=== PATIENT | male | born 2000 | race African-American/Black ===

== ENCOUNTER 2024-06-19 19:52 | Inpatient (IN) ==
--- NOTE | 2024-06-19 20:30 | Emergency Department Note ---
Impression & Plan Psychosis, Depression, High serum chloride ED Provider Note NAME: JOB RIVERA AGE: 24 SEX: M : 2000 ARRIVES VIA: Walk-In INFORMANT: Patient ED PROVIDER(S): Yang Carpio DO CHIEF COMPLAINT: Back pain HPI: Patient is a 24-year-old male who presents ER for back pain. He does not wish to discuss how long it has been there but its on the right lower back. He denies any weakness or numbness in the arms or legs. He is able to urinate and move his bowels. He denies any fevers. He notes that the pain has just gone away. He also admits that he wants to speak with someone about his mental health as he is not eating well. He denies any headache or change in vision. No chest pain or shortness of breath. No belly pain. Denies any suicidal homicidal ideations. No auditory visual hallucinations. ADDITIONAL HISTORY OBTAINED: Per HPI Chronic Medical/Social Conditions Affecting Care: Per HPI PAST MEDICAL HISTORY:See Below PAST SURGICAL HISTORY:See Below FAMILY HISTORY:See Below SOCIAL HISTORY:See Below HOME MEDICATIONS:See Below ALLERGIES:See Below VITALS:See Below PHYSICAL EXAMINATION: .GENERAL: Sitting up in bed, alert, well appearing, well nourished, no distress, non-toxic EYE EXAM: normal conjunctiva. PERRL and EOM's intact. OROPHARYNX: no exudate, no erythema, lips, buccal mucosa, and tongue normal and mucous membranes are moist NECK: supple, no nuchal rigidity, no adenopathy, non-tender LUNGS: Clear to auscultation. Normal chest wall mechanics HEART: no murmurs, S1 normal and S2 normal ABDOMEN: abdomen soft, non-tender, normo-active bowel sounds, no masses, no rebound or guarding. BACK: Back is symmetrical on inspection and there is no deformity, no midline tenderness, no CVA tenderness. SKIN: no rashes and no bruising UPPER EXTREMITIES: upper extremities are grossly normal. LOWER EXTREMITIES: Flexion and extension of the hips, knees, ankles, and EHL 5/5 bilaterally. Gross sensation is intact. DPs are 2/4 bilateral. Patellar and Achilles reflexes are 2/4 bilateral NEURO EXAM: Normal sensorium, cranial nerves II-XII grossly intact, normal speech, no gross weakness of arms, no gross weakness of legs. No drift. Finger to nose intact. Gross sensation intact. PSYCH: Denies any suicidal or homicidal ideations. No auditory visual hallucinations. MEDICAL DECISION MAKING: Patient is a 24-year-old male who presents ER with above-stated complaint. Blood work was obtained and shows no significant leukocytosis or anemia. BMP with LFTs and bilirubin was unremarkable. TSH normal. UA was clean. Drug screen was negative. Alcohol negative. COVID-negative. Patient was evaluated by her psychiatric pet care attendant. Patient was psychotic. Patient was agreeable to coming in on a 201. Patient was updated at bedside and discussed with 3 S. for further evaluation management treatment. Patient was admitted on a 201 to 3 S. Consults/Care Managements Discussions: Per MDM Triage Nursing notes reviewed. Limited review of prior medical records performed Vital Signs: reviewed and remarkable for no significant abnormalities Differential diagnosis: Mood disorder, infection, hypoglycemia, electrolyte abnormalities, cardiac sources, intracerebral event, toxicologic, trauma, neurologic, as well as other pathologies. ER treatment provided: See below Diagnostics interpreted by me include EKG and cardiac monitoring as listed below: -ECG: none -Laboratory studies:Interpreted by me as stated above in MDM and shown below. Imaging studies: Xrays: As interpreted by me: X-rays of the lumbar spine show no acute fracture or dislocation CTs show: None Procedures: None Critical Care: None Past Med/Surg History Problem List (Updated 06/20/24 @ 00:22 by Yang Carpio DO) Psychosis (Acute) High serum chloride (Acute) Depression (Acute) Social History Smoking Status: Never smoker Preferred Language: Slovak Feels Safe at Home: Yes Gender Identity: Male Home Meds Home Medications Medication Instructions Recorded Confirmed No Known Home Medications 06/19/24 06/19/24 Results & Data (ED) Vital Signs Vital Signs - 24 hr 06/19/24 19:57 06/19/24 22:07 Temperature 36.6 C Temperature Source Oral Pulse Rate 89 Pulse Rate [Finger] 72 Respiratory Rate 16 16 Respiratory Effort / Characteristics Non-Labored Spontaneous Respiratory Depth Normal Blood Pressure 121/82 Blood Pressure [Right Arm] 118/82 Blood Pressure Mean 95 Blood Pressure Mean [Right Arm] 94 Pulse Oximetry 97 98 Oxygen Delivery Method Room Air Room Air Sepsis Recent Fever Within 48 Hours No Sepsis New/Unexplained Change in Mental Status No Sepsis Action Taken by Nursing No Action Required Laboratory Data 06/19/24 21:31 06/19/24 21:31 Lab Results 06/19/24 06/19/24 Range/Units 20:21 21:31 WBC 8.22 (4.8-10.8) K/ul RBC 5.51 (4.70-6.10) M/uL Hgb 16.3 (14.0-18.0) g/dl Hct 47.7 (42.0-52.0) % MCV 86.6 (80.0-100.0) fL MCH 29.6 (25.0-34.0) pg MCHC 34.2 (32.0-36.0) g/dL RDW Std Deviation 42.1 (36.4-46.3) fL RDW Coeff of Anastasiya 13.4 (11.5-14.5) % Plt Count 251 (130-400) K/uL MPV 9.4 (9.4-12.4) fL Immature Gran % (Auto) 0.1 % Neut % (Auto) 72.3 % Lymph % (Auto) 17.9 % [place] % (Auto) 8.0 % Eos % (Auto) 1.2 % Baso % (Auto) 0.5 % Neut # (Auto) 5.94 (1.40-6.50) K/uL Lymph # (Auto) 1.47 (1.20-3.40) K/uL [place] # (Auto) 0.66 H (0.11-0.59) K/uL Eos # (Auto) 0.10 (0.00-0.50) K/uL Baso # (Auto) 0.04 (0.00-0.20) K/uL Immature Gran # (Auto) 0.01 (0.01-0.20) K/uL Sodium 140 (136-145) mmol/L Potassium 3.6 (3.5-5.1) mmol/L Chloride 105 (98-107) mmol/L Carbon Dioxide 27 (21-32) mmol/L Anion Gap 8 (3-11) BUN 8 (6-23) mg/dl Creatinine 0.89 (0.6-1.4) mg/dl Est Cr Clr Drug Dosing 115.9 ml/min eGFR 122.72 BUN/Creatinine Ratio 9.0 L (10-20) Glucose 96 (70-99(Fasting)) mg/dl Calcium 10.5 H (8.6-10.3) mg/dl Total Bilirubin 0.6 (0.2-1.0) mg/dl AST 16 (13-39) U/L ALT 13 (7-52) U/L Alkaline Phosphatase 71 (34-104) U/L Total Protein 8.3 (6.0-8.3) gm/dl Albumin 4.6 (3.4-5.0) gm/dl Globulin 3.7 (2.5-4.0) gm/dl Albumin/Globulin Ratio 1.2 (0.9-2) TSH 0.709 (0.300-4.500) uIu/ml Urine Color Yellow Urine Appearance Clear (Clear) Urine pH 7.5 (4.5-7.5) Ur Specific [place] 1.018 (1.000-1.030) Urine Protein Negative (Negative) Urine Glucose (UA) Negative (Negative) Urine Ketones Trace H (Negative) Urine Blood Negative (Negative) Urine Nitrite Negative (Negative) Urine Bilirubin Negative (Negative) Urine Urobilinogen Negative (Negative) Ur Leukocyte Esterase Negative (Negative) Salicylates < 3.0 L (3.0-30) mg/dl Urine Opiates Screen Neg (Neg) Ur Methadone, Qual Neg (Neg) Urine Fentanyl Screen Neg (Neg) Acetaminophen < 3 L (10-30) ug/ml Urine Barbiturates Neg (Neg) Ur Phencyclidine (PCP) Neg (Neg) U Amphetamin/Meth Scrn Neg (Neg) MDMA (Ecstasy) Screen Neg (Neg) U Benzodiazepines Scrn Neg (Neg) Ur Cocaine Metabolite Neg (Neg) U Marijuana (THC) Screen Neg (Neg) Ethyl Alcohol mg/dL < 10.0 (<10.0) mg/dl SARS-CoV-2, RNA, NAAT NEGATIVE (NEGATIVE) Discharge Plan Visit Data Chief Complaint: Back Injury/Pain Stated Complaint: BACK PAIN ED Provider: Yang Carpio Discharge Problem: Psychosis, Depression, High serum chloride Forms Stand Alone Forms: [facility] [employer], Suicide Prevention Resources Prescriptions Prescriptions: No Action No Known Home Medications Referrals Referrals: PCP,NO [Primary Care Provider] - Discharge Problem: Psychosis Qualifiers: Psychosis type: unspecified psychosis type Qualified Code(s): F29 - Unspecified psychosis not due to a substance or known physiological condition Depression Qualifiers: Depression Type: unspecified Qualified Code(s): F32.A - Depression, unspecified
[2024-06-19 21:38] LABS: Appearance Urine Clear (Clear); Bilirubin Urine Negative (Negative); Blood Urine Negative (Negative); Color Urine Yellow; Glucose Urine UA Negative (Negative); Ketones Urine Trace (Negative); Leukocyte Esterase Urine Negative (Negative); Nitrite Urine Negative (Negative); Protein Urine Negative (Negative); Specific Gravity Urine 1.018 (1.000-1.030); Urobilinogen Urine Negative (Negative); pH Urine 7.5 (4.5-7.5)
[2024-06-19 21:47] LABS: Basophils # (auto) 0.04 K/uL (0.00-0.20); Basophils % (auto) 0.5 %; Eosinophils % (auto) 1.2 %; Hematocrit (blood only) 47.7 % (42.0-52.0); Hemoglobin 16.3 g/dl (14.0-18.0); Immature Granulocytes # (auto) 0.01 K/uL (0.01-0.20); Immature Granulocytes % (auto) 0.1 %; Lymphocytes # (auto) 1.47 K/uL (1.20-3.40); Lymphocytes % (auto) 17.9 %; Mean Corpuscular Hemoglobin 29.6 pg (25.0-34.0); Mean Corpuscular Hgb Conc 34.2 g/dL (32.0-36.0); Mean Corpuscular Volume 86.6 fL (80.0-100.0); Mean Platelet Volume 9.4 fL (9.4-12.4); Monocytes # (auto) 0.66 K/uL (0.11-0.59); Neutrophils # (auto) 5.94 K/uL (1.40-6.50); Neutrophils % (auto) 72.3 %; Platelet Count 251 K/uL (130-400); RDW Coefficient of Variation 13.4 % (11.5-14.5); RDW Standard Deviation 42.1 fL (36.4-46.3); Red Blood Count 5.51 M/uL (4.70-6.10); White Blood Count 8.22 K/ul (4.8-10.8)
[2024-06-19 22:03] LABS: Albumin Globulin Ratio 1.2 (0.9-2); Albumin Level 4.6 gm/dl (3.4-5.0); Bilirubin,Total 0.6 mg/dl (0.2-1.0); Calcium 10.5 mg/dl (8.6-10.3); Creatinine Clr Calc Pharmacy 115.9 ml/min; Globulin 3.7 gm/dl (2.5-4.0); Potassium 3.6 mmol/L (3.5-5.1); Total Protein 8.3 gm/dl (6.0-8.3)
[2024-06-19 22:05] LABS: Acetaminophen < 3 ug/ml (10-30); Salicylate < 3.0 mg/dl (3.0-30)
[2024-06-19 22:17] LABS: Thyroid Stimulating Hormone 0.709 uIu/ml (0.300-4.500)
[2024-06-19 22:26] LABS: Amphetamines+Metham, Urine Neg (Neg); Barbiturates, Urine Neg (Neg); Benzodiazepine, Urine Neg (Neg); Cocaine, Urine Neg (Neg); Fentanyl, Urine Neg (Neg); MDMA (Ecstacy), Urine Neg (Neg); Marijuana, Urine Neg (Neg); Methadone, Urine Neg (Neg); Opiate, Urine Neg (Neg); Phencyclidine, Urine Neg (Neg)
[2024-06-20] MEDS ORDERED: ALUMINUM/MAGNESIUM SUSP 30 ML UDC PO PRN (00:32)
[2024-06-20] MEDS ORDERED: hydrOXYzine HCl 25 MG TAB PO PRN (00:32)
[2024-06-20] MEDS ORDERED: MAGNESIUM HYDROXIDE SUSP 30 ML UDC PO PRN (00:32)
[2024-06-20] MEDS ORDERED: BISMUTH SUBSALICYLATE 262 MG CHEW PO PRN (00:32)
[2024-06-20] MEDS ORDERED: SODIUM CHLORIDE 0.65% NA SOLN 45 ML (OCEAN) PRN (00:32)
--- NOTE | 2024-06-20 01:31 | XRay Report ---
Exam(s): XR L SPINE, 2-3 views EXAM: XR Lumbosacral Spine, 2 or 3 Views CLINICAL HISTORY: Reason for exam: lower back pain. TECHNIQUE: Frontal and lateral views of the lumbar spine and sacrum. COMPARISON: No relevant prior studies available. FINDINGS: Vertebrae: Unremarkable. No acute fracture. Normal alignment. Sacrum/coccyx: Unremarkable as visualized. No acute fracture. Disc spaces: No acute findings. No significant narrowing. Soft tissues: Unremarkable. Gastrointestinal tract: Increased stool within the distal colon and upper rectum. IMPRESSION: No acute findings in the lumbar spine. Electronically signed by: Vikash Mccarthy MD 06/20/24 01:30 AM
--- NOTE | 2024-06-20 09:09 | History & Physical ---
Date of Service June 20, 2024 Impression / Recommendations Impression CATHY RIVERA is a 24-year-old man who is currently homeless and drove to the hospital from [place] for unclear reasons with unknown psychiatric and medical history though reported history of prior psychiatric hospitalizations, and was admitted on 06/20/24 00:02 on a 201 voluntary commitment for bizarre behaviors, and then knew to ask for and signed a 72 hour notice after arriving to the unit. Diagnostically consistent with possible unspecified psychosis vs malingering. Differential for psychosis including schizophrenia with possible catatonia (stills still for periods of time but also observed to walk and move quickly and easily when motivated to shower or eat) vs depressive episode vs delusional disorder vs ASD vs developmental disorder va trauma. It's unclear what is driving his evasiveness in not sharing even seemingly basic information. Possible his odd affect and intense stare could be due to thought blocking with internal preoccupation and paranoia contributing to his unwillingness to engage with interview. No evidence to suggest he's trying to avoid legal problems and UDS negative so low suspicion for substance-induced or withdrawal presentation. However, his presentation is also atypical for psychosis in that overall his behavior seems quite organized, he can clearly discuss some of his desires such as living locally and knew and was organized enough to immediately ask to sign a 72 hour notice. Remains unclear why he sought voluntary inpatient psychiatric treatment but now wants to leave, not felt to be safe until we can further clarify potential current symptoms and observe his behavior for at least another 24 hours. No evidence for current delirium or NMS or acute neurological symptoms. Will continue to monitor vital signs, notable for slight tachycardia this morning. Given his report of poor sleep and auditory hallucinations will iniate olanzapine which he consents to. Will continue to closely monitor for possible catatonia and will treat should his Mcduffie Allan catatonia score increase. Discussed medication treatment options. Reviewed side effects including but not limited to: movement (TD, NMS), cardiac (QTc prolongation), and metabolic (stroke, insulin resistance) and necessity for fasting lipid and glucose labwork and AIMS done with score of 0 with olanzapine. MNPR-odd affect and presentation Overall I spent a total of 60 minutes for this admission including review of chart records, review of labwork, direct evaluation of the patient, counseling the patient, ordering medication, risk assessment, discussion with the psychiatric liason RN and documentation in the electronic health record. (1) Auditory hallucinations: (2) Homeless: Plan The patient was admitted to the [facility] ([facility] inpatient mental health unit) on q15 min checks (behavioral with suicide precautions) for safety. The patient will participate in group, recreational, and milieu therapies and will be offered additional individual and family sessions as clinically appropriate. -Start olanzapine 5mg HS -Fasting lipid panel and HbA1c tomorrow, Vit D, Vit B12 Inventory Assets Strengths: able to ask for help, willing for outpatient CM Needs: safety and stabilization, medication adjustment, additional coping skills, increased outpatient services Suicide Risk Level Suicide Risk Level: Moderate (q15 min suicide checks) (denies SI but odd presentation, feels safe in the hospital, able to ask nurses when he needs things) Suicide Risk Level Comments: Risk Factors Assessment Male: Yes : No Do You Have Access To A Gun?: No Mental Health Diagnoses: Yes Previous Psychiatric Hospitalization: Yes Hopelessness: No Protective Factors Assessment Employed: No Psychiatric History Identifying Data CATHY RIVERA is a 24-year-old man who is currently homeless and drove to the hospital from [place] for unclear reasons with unknown psychiatric and medical history though reported history of prior psychiatric hospitalizations, and was admitted on 06/20/24 00:02 on a 201 voluntary commitment for bizarre behaviors, and then knew to ask for and signed a 72 hour notice after arriving to the unit. Chief Complaint "I don't want to answer that question". History of Present Illness Cathy presents for psychiatric admission for bizarre presentation and concern for possible preoccupation by internal stimuli and possible paranoia leading to evasiveness. He reports current homelessness and previous psychiatric hospitalizations, though the exact number is unknown. He is reluctant to provide detailed information about his background and current circumstances. He drove to the emergency room from [place] and initially reported back pain and then asked to speak with someone about his mental health due to not eating well per ED documentation. He denied any hallucinations to ED providers. Today he reports experiencing sleep issues but is unable to provide details on the cause or nature of these problems. He also acknowledges hearing auditory hallucinations when asked about this but will not provide any further details. He acknowledges having been on psychiatric medication in the past but cannot recall the specific medications or the pharmacy where they were filled. He expresses a desire to stay in the current region rather than return to [place], though he will not provide any details or rationale for this nor will he share anything about his prior living situations or family He is unable to clarify any psychiatric diagnoses and frequently responds with "I don't know how to answer that question" to various inquiries. Despite his housing situation, he reports he has been able to eat recently (notably different from what he told ED providers, he does appear thin). Psychiatric ROS is limited due to his evasiveness in providing a history or discussing symptoms. Past Psychiatric History Current Psychiatric Diagnosis: Unspecified Mood Disorder Outpatient Services: none known Previous Psych Admissions: yes but unknown details Do You Have Access To A Gun?: No History of Previous Suicide Attempt: No Past Medication Trials: unknown, he cannot recall Allergies Allergy/AdvReac Type Severity Reaction Status Date / Time No Known Allergies Allergy Unverified 06/20/24 00:32 Home Medications Medication Instructions Recorded Confirmed Type No Known Home Medications 06/19/24 06/19/24 History Family History Family History of: Refuses To Discuss Family Mental Health History Comment: Does not know Alcohol History Hx of Alcohol Use Over the Past 12 Months: No AUDIT Total Score: 0 Smoking Use Have You Smoked or Used Tobacco Products in the Last 30 Days: No Smoking Status: Never smoker Substance History Hx of Prescription Med Misuse Over the Past 12 Months: No Hx of Over the Counter Med Misuse Over the Past 12 Months: No Hx of Inhalent Misuse Over the Past 12 Months: No Hx of Organic Substance Use Over the Past 12 Months: No Hx of Illegal Substances/Street Drug Use Over Past 12 Months: No Problems as a Result of Past Substance Use: None Identified Problems as a Result of Past Substance Use Comments: Pt reports he does not use drugs or drink Personal History Living Arrangements: Homeless Beliefs That Will Affect Care: None Patient History Social History Smoking Status: Never smoker Preferred Language: Hungarian Communication Ability: Impaired Communication Ability Comment: difficulty communicating due to poverty of speech Retail Office Associate Required: No Beliefs That Will Affect Care: None Feels Safe at Home: Declines to Answer Gender Identity: Male Assistive Devices: None Review of Systems Review of Systems: Unobtainable due to mental health condition Physical Exam Psychiatric: Orientation: alert, oriented x 3 and + guarded Apperance: appropriately groomed Eye Contact: good eye contact (intense and odd in nature) Motor Behavior: no abnormal motor movements and + psychomotor retardation (sits still for long periods of time staring at the wall ) Speech: + abnormal rate/rhythm/volume of speech (brief, significant latency at times) Affect: + flat affect Mood: + depressed mood and + anxious mood Thought Process: + thought blocking and + concrete thought process Thought Content: + paranoid Suicidal Thoughts: denies suicidal thoughts Homicidal Thoughts: denies homicidal thoughts Hallucinations: + auditory hallucinations Insight: + limited insight Judgment: + poor judgement Vital Signs (Past 24 Hours): Last Vital Signs Temp 37.1 C 06/20/24 06:00 Pulse 123 H 06/20/24 06:22 Resp 16 06/20/24 06:00 BP 113/76 06/20/24 06:22 Pulse Ox 98 06/20/24 06:00 O2 Del Method Room Air 06/20/24 06:00 Exam Statement: A physical exam was performed in the ED by Dr. Carpio for the purposes of medical clearance. I accept that physical as correct and adequate for the purposes of the inpatient physical exam. Results & Data ([facility]) Laboratory Results Laboratory Results - last 24 hr 06/19/24 06/19/24 20:21 21:31 WBC 8.22 RBC 5.51 Hgb 16.3 Hct 47.7 MCV 86.6 MCH 29.6 MCHC 34.2 RDW Std Deviation 42.1 RDW Coeff of Anastasiya 13.4 Plt Count 251 MPV 9.4 Immature Gran % (Auto) 0.1 Neut % (Auto) 72.3 Lymph % (Auto) 17.9 [place] % (Auto) 8.0 Eos % (Auto) 1.2 Baso % (Auto) 0.5 Neut # (Auto) 5.94 Lymph # (Auto) 1.47 [place] # (Auto) 0.66 H Eos # (Auto) 0.10 Baso # (Auto) 0.04 Immature Gran # (Auto) 0.01 Sodium 140 Potassium 3.6 Chloride 105 Carbon Dioxide 27 Anion Gap 8 BUN 8 Creatinine 0.89 Est Cr Clr Drug Dosing 115.9 eGFR 122.72 BUN/Creatinine Ratio 9.0 L Glucose 96 Calcium 10.5 H Total Bilirubin 0.6 AST 16 ALT 13 Alkaline Phosphatase 71 Total Protein 8.3 Albumin 4.6 Globulin 3.7 Albumin/Globulin Ratio 1.2 TSH 0.709 Urine Color Yellow Urine Appearance Clear Urine pH 7.5 Ur Specific [place] 1.018 Urine Protein Negative Urine Glucose (UA) Negative Urine Ketones Trace H Urine Blood Negative Urine Nitrite Negative Urine Bilirubin Negative Urine Urobilinogen Negative Ur Leukocyte Esterase Negative Salicylates < 3.0 L Urine Opiates Screen Neg Ur Methadone, Qual Neg Urine Fentanyl Screen Neg Acetaminophen < 3 L Urine Barbiturates Neg Ur Phencyclidine (PCP) Neg U Amphetamin/Meth Scrn Neg MDMA (Ecstasy) Screen Neg U Benzodiazepines Scrn Neg Ur Cocaine Metabolite Neg U Marijuana (THC) Screen Neg Ethyl Alcohol mg/dL < 10.0 SARS-CoV-2, RNA, NAAT NEGATIVE Current Inpatient Medications Current Inpatient Medications: Current Inpatient Medications Acetaminophen (Acetaminophen 325 Mg Tab) 650 mg PO Q4H PRN PRN Reason: Headache or Minor Fever Stop: 07/20/24 00:31 Al Hydrox/Mg Hydrox/Simethicone (Aluminum/Magnesium Susp 30 Ml Udc) 30 ml PO Q4H PRN PRN Reason: GI Upset Stop: 07/20/24 00:31 Bismuth Subsalicylate (Bismuth Subsalicylate 262 Mg Chew) 2 tab PO Q30M PRN PRN Reason: Loose Stool/Diarrhea Stop: 07/20/24 00:31 Hydroxyzine HCl (Hydroxyzine Hcl 25 Mg Tab) 50 mg PO HSZ PRN PRN Reason: Insomnia Stop: 07/20/24 00:31 Hydroxyzine HCl (Hydroxyzine Hcl 25 Mg Tab) 25 mg PO Q4H PRN PRN Reason: Anxiety Stop: 07/20/24 00:31 Magnesium Hydroxide (Magnesium Hydroxide Susp 30 Ml Udc) 30 ml PO DAILY PRN PRN Reason: Constipation Stop: 07/20/24 00:31 Olanzapine (Olanzapine 5 Mg Tablet) 5 mg PO BID PRN PRN Reason: Agitation Stop: 07/20/24 08:59 Sodium Chloride (Sodium Chloride 0.65% Na Soln 45 Ml ([place])) 1 - 2 sprays NA PRN PRN PRN Reason: Nasal Dryness/Congestion Stop: 07/20/24 00:31
[2024-06-20] MEDS: OLANZapine 5 MG TABLET PO PRN (14:37)
[2024-06-20] MEDS: OLANZapine 5 MG TABLET PO SCH (21:00)
--- NOTE | 2024-06-21 08:40 | Psychiatric Progress Note ---
Date of Service June 21, 2024 Impression / Recommendations Impression JOB RIVERA is a 24-year-old man who is currently homeless and drove to the hospital from [place] for unclear reasons with unknown psychiatric and medical history though reported history of prior psychiatric hospitalizations, and was admitted on 06/20/24 00:02 on a 201 voluntary commitment for bizarre behaviors, and then knew to ask for and signed a 72 hour notice after arriving to the unit. 72 hour notice expires on 06/23/2024 at 5:47am. Diagnostically consistent with possible unspecified psychosis vs malingering. Differential for psychosis including schizophrenia with possible catatonia (stills still for periods of time but also observed to walk and move quickly and easily when motivated to shower or eat) vs depressive episode vs delusional disorder vs ASD vs developmental disorder va trauma. It's unclear what is driving his evasiveness in not sharing even seemingly basic information. Possible his odd affect and intense stare could be due to thought blocking with internal preoccupation and paranoia contributing to his unwillingness to engage with interview. No evidence to suggest he's trying to avoid legal problems and UDS negative so low suspicion for substance-induced or withdrawal presentation. However, his presentation is also atypical for psychosis in that overall his behavior seems quite organized, he can clearly discuss some of his desires such as living locally and knew and was organized enough to immediately ask to sign a 72 hour notice. Remains unclear why he sought voluntary inpatient psychiatric treatment but now wants to leave, not felt to be safe until we can further clarify potential current symptoms and observe his behavior for at least another 24 hours. No evidence for current delirium or NMS or acute neurological symptoms. Will continue to monitor vital signs, notable for slight tachycardia this morning. A:Presentation consistent with ongoing unspecified psychosis possibly schizophrenia but difficult to tell at this point. Increased concern for catatonia today so Ativan started dose increased after initial morning dose did not seem to have much an affect though also did not seem to make him tired. Reviewed side effects including fatigue addiction potential and he was agreeable to starting this. Will increase olanzapine to continue to target potential internal stimuli/preoccupations/thought blocking. Labwork reviewed and normal with the exception of low vitamin D he agrees to starting vitamin D supplementation. MNPR-odd affect and presentation Overall, I spent a total of 40 minutes on this case including meeting with the patient, reviewing the chart, nursing report, multidisciplinary team meeting, orders, and documentation. (1) Auditory hallucinations: (2) Homeless: Plan 06/21/2024: -Increase olanzapine to 10mg HS -Started and titrated ativan to 2mg TID -Requested records from [facility] for possible previous admissions in attempt to get further history and collateral information 06/20/2024: The patient was admitted to the [facility] ([facility] health unit) on q15 min checks (behavioral with suicide precautions) for safety. The patient will participate in group, recreational, and milieu therapies and will be offered additional individual and family sessions as clinically appropriate. -Start olanzapine 5mg HS -Fasting lipid panel and HbA1c tomorrow, Vit D, Vit B12 Inventory Assets Strengths: able to ask for help, willing for outpatient CM Needs: safety and stabilization, medication adjustment, additional coping skills, increased outpatient services Suicide Risk Level Suicide Risk Level: Moderate (q15 min suicide checks) (denies SI but odd presentation, feels safe in the hospital, able to ask nurses when he needs things) Suicide Risk Level Comments: Risk Factors Assessment Male: Yes : No Do You Have Access To A Gun?: No Mental Health Diagnoses: Yes Previous Psychiatric Hospitalization: Yes Hopelessness: No Protective Factors Assessment Employed: No Interval History Identifying Information JOB RIVERA is a 24-year-old man who is currently homeless and drove to the hospital from [place] for unclear reasons with unknown psychiatric and medical history though reported history of prior psychiatric hospitalizations, and was admitted on 06/20/24 00:02 on a 201 voluntary commitment for bizarre behaviors, and then knew to ask for and signed a 72 hour notice after arriving to the unit. Chief Complaint "I don't want to say who it is". Review of Systems Sleep Information Total Hours of Sleep: 7 Meal Information Percent Meal Consumed - Breakfast: 100 Percent Meal Consumed - Lunch: 75 Percent Meal Consumed - Dinner: 75 Subjective Subjective Patient was seen & assessed and interval progress reviewed with nursing and social work. Wouldn't interact with peers or staff. Sat in one group with flat affect, did not participate, then asked to sign another 72 hour with nurse. This morning he asked to take a shower, waited while nurses got it ready then asked again to get a shower seemingly confused that he had just asked about it. He consented to trial of Ativan today given some increased concern for catatonia given longer periods of lack of movement and ongoing stare. He remains evasive when attempting to ask him any questions frequently responds with "I do not know" or will declined to share information. He did agree to sign an [facility] when asked about this facility as a possible place he may have received treatment in the past as it is closer to the [facility]. He also was able to tell me that he was only homeless for 3 days before coming to our hospital and that prior to that he was living with someone in his family but would not tell me who and could not tell me why. He denied that they were fighting or that the family member had been abusive to him in any way but would not tell me what circumstances led to him leaving or why he felt the need to leave the home. Later in the day he was observed by nursing to be on the phone when I asked him about this he initially denied being on the phone then agreed that he tried to call someone but did not reach them. When asked who he was speaking with told me "I do not want to say who it is". Reviewed his lab work with him he is agreeable to starting vitamin D. He denies any side effects from the olanzapine last night and denies hearing any voices today. Tells me "I meant to say I slept a little bit" when asked about his sleep quality. Physical Exam Psychiatric Orientation: alert, oriented x 3 and + guarded Apperance: appropriately groomed Eye Contact: good eye contact (intense and odd in nature) Motor Behavior: no abnormal motor movements and + psychomotor retardation (sits still for long periods of time staring at the wall ) Speech: + abnormal rate/rhythm/volume of speech (brief, significant latency at times) Affect: + flat affect Mood: + depressed mood and + anxious mood Thought Process: + thought blocking and + concrete thought process Thought Content: + paranoid Suicidal Thoughts: denies suicidal thoughts Homicidal Thoughts: denies homicidal thoughts Hallucinations: + auditory hallucinations Insight: + limited insight Judgment: + poor judgement Vital Signs (Past 24 Hours) Last Vital Signs Temp 36.6 C 06/21/24 06:00 Pulse 88 06/21/24 06:26 Resp 16 06/21/24 06:00 BP 111/75 06/21/24 06:26 Pulse Ox 100 06/21/24 06:00 O2 Del Method Room Air 06/21/24 06:00 Results & Data ([facility]) Laboratory Results Laboratory Results - last 24 hr 06/21/24 08:12 Estimat Average Glucose Pending Hemoglobin A1c Pending Triglycerides Pending Cholesterol Pending VLDL Cholesterol, Calc Pending HDL Cholesterol Pending Cholesterol/HDL Ratio Pending Vitamin B12 Pending 25-OH Vitamin D Total Pending Current Inpatient Medications Current Inpatient Medications: Current Inpatient Medications Acetaminophen (Acetaminophen 325 Mg Tab) 650 mg PO Q4H PRN PRN Reason: Headache or Minor Fever Stop: 07/20/24 00:31 Al Hydrox/Mg Hydrox/Simethicone (Aluminum/Magnesium Susp 30 Ml Udc) 30 ml PO Q4H PRN PRN Reason: GI Upset Stop: 07/20/24 00:31 Bismuth Subsalicylate (Bismuth Subsalicylate 262 Mg Chew) 2 tab PO Q30M PRN PRN Reason: Loose Stool/Diarrhea Stop: 07/20/24 00:31 Hydroxyzine HCl (Hydroxyzine Hcl 25 Mg Tab) 50 mg PO HSZ PRN PRN Reason: Insomnia Stop: 07/20/24 00:31 Hydroxyzine HCl (Hydroxyzine Hcl 25 Mg Tab) 25 mg PO Q4H PRN PRN Reason: Anxiety Stop: 07/20/24 00:31 Magnesium Hydroxide (Magnesium Hydroxide Susp 30 Ml Udc) 30 ml PO DAILY PRN PRN Reason: Constipation Stop: 07/20/24 00:31 Olanzapine (Olanzapine 5 Mg Tablet) 5 mg PO BID PRN PRN Reason: Agitation Stop: 07/20/24 08:59 Last Admin: 06/20/24 14:37 Dose: 5 mg Olanzapine (Olanzapine 5 Mg Tablet) 5 mg PO HS RAFI Stop: 07/20/24 21:59 Last Admin: 06/20/24 21:00 Dose: 5 mg Sodium Chloride (Sodium Chloride 0.65% Na Soln 45 Ml ([place])) 1 - 2 sprays NA PRN PRN PRN Reason: Nasal Dryness/Congestion Stop: 07/20/24 00:31 Mental Health & Subst Abuse Tx Therapist Name of Therapist: None Physics Tutor Name of Physics Tutor: None Post Discharge Appointments Primary Care Physician Name Of Family Doctor/PCP: Does not know
[2024-06-21 09:08] LABS: Chol HDL Ratio 2.3 (0-5)
[2024-06-21] MEDS: LORazepam 1 MG TAB PO SCH ×2 (09:08→14:04)
[2024-06-21 09:49] LABS: Estimated Average Glucose 103 mg/dl; Hemoglobin A1C 5.2 % (4.5-5.6)
[2024-06-21] MEDS: OLANZapine 10 MG TAB PO SCH (21:34)
--- NOTE | 2024-06-22 09:10 | Psychiatric Progress Note ---
Date of Service June 22, 2024 Impression / Recommendations Impression JOB RIVERA is a 24-year-old man who is currently homeless and drove to the hospital from [place] for unclear reasons with unknown psychiatric and medical history though reported history of prior psychiatric hospitalizations, and was admitted on 06/20/24 00:02 on a 201 voluntary commitment for bizarre behaviors, and then knew to ask for and signed a 72 hour notice after arriving to the unit. 72 hour notice expires on 06/23/2024 at 5:47am. Diagnostically consistent with schziophrenia, paranoid type based on review of outside records of hospitalizations over the years. A:Today slightly more communicative and less guarded states he feels safe in the hospital but continues to struggle to speak about any of his symptoms or internal mood states. Ongoing thought blocking. Records received from [facility] which were reviewed and notable for significant history of schizophrenia paranoid type. Various inpatient and emergency room notes from their facility described that he has been tried on a variety of antipsychotics in the past including olanzapine Haldol Seroquel paliperidone Abilify and he has responded the best to the combination of paliperidone and Seroquel. Review of chart shows most recent records of medications from February 2024 was paliperidone 6 mg daily and Seroquel 100 mg at bedtime. Appears he has also been on the Invega long-acting injectable in the past of 156 mg. Currently he is declining option for a long-acting injectable but possible he may change his mind moving forward. Ativan discontinued as this worsened fatigue and no evidence of catatonia anticipated response. Fewer signs of catatonia today, suspect latency is due to thought blocking, and fatigue may be due to co-occurring depression component vs due to paranoia from psychosis. Discussed medication treatment options. Discussed risks, benefits and alternatives. He consents to starting Seroquel and paliperidone and stopping olanzapine. Reviewed that similar side effects with paliperidone and Seroquel of: movement (TD, NMS), cardiac (QTc prolongation), and metabolic (stroke, insulin resistance) and necessity for fasting lipid and glucose labwork and AIMS done with score of 0. MNPR-ongoing psychosis, paranoia Overall, I spent a total of 45 minutes on this case including meeting with the patient, reviewing the chart, nursing report, multidisciplinary team meeting, orders, and documentation and reviewing external records. (1) Auditory hallucinations: (2) Homeless: Plan 06/22/2024: -Discontinue olanzapine -Discontinue ativan -Start paliperidone 3mg daily tomorrow AM -Start Seroquel 100mg HS. 06/21/2024: -Increase olanzapine to 10mg HS -Started and titrated ativan to 2mg TID -Requested records from [facility] for possible previous admissions in attempt to get further history and collateral information 06/20/2024: The patient was admitted to the [facility] ([facility]) on q15 min checks (behavioral with suicide precautions) for safety. The patient will participate in group, recreational, and milieu therapies and will be offered additional individual and family sessions as clinically appropriate. -Start olanzapine 5mg HS -Fasting lipid panel and HbA1c tomorrow, Vit D, Vit B12 Inventory Assets Strengths: able to ask for help, willing for outpatient CM Needs: safety and stabilization, medication adjustment, additional coping skills, increased outpatient services Suicide Risk Level Suicide Risk Level: Moderate (q15 min suicide checks) (denies SI but odd presentation, feels safe in the hospital, able to ask nurses when he needs things) Suicide Risk Level Comments: Risk Factors Assessment Male: Yes : No Do You Have Access To A Gun?: No Mental Health Diagnoses: Yes Previous Psychiatric Hospitalization: Yes Hopelessness: No Protective Factors Assessment Employed: No Interval History Identifying Information JOB RIVERA is a 24-year-old man who is currently homeless and drove to the hospital from [place] for unclear reasons with unknown psychiatric and medical history though reported history of prior psychiatric hospitalizations, and was admitted on 06/20/24 00:02 on a 201 voluntary commitment for bizarre behaviors, and then knew to ask for and signed a 72 hour notice after arriving to the unit. Chief Complaint "I don't know how to describe it". Review of Systems Sleep Information Total Hours of Sleep: 7 Meal Information Percent Meal Consumed - Breakfast: 100 Percent Meal Consumed - Lunch: 100 Percent Meal Consumed - Dinner: 0 Subjective Subjective Patient was seen & assessed and interval progress reviewed with treatment team. Today he has been largely isolative to his room though has been eating his meals and did share a little bit more in one of the groups he attended. This morning stated his mood was worried in the group. No evidence of any type of response suggestive of catatonia from the Ativan rather has appeared quite tired so this was discontinued midday. Records received from previous hospitalizations at [facility] and additional collateral available from [facility] discussion with social work all suggestive of diagnosis of schizophrenia. Discussed with Stephanie a past history of medications and he is agreeable to restarting paliperidone and Seroquel as these were helpful in the past. His only request was that he not be started on any injectable medications preferring use of medications that come as a pill. Physical Exam Psychiatric Orientation: alert, oriented x 3 and + guarded Apperance: appropriately groomed Eye Contact: good eye contact (intense and odd in nature) Motor Behavior: no abnormal motor movements and + psychomotor retardation (lying in bed) Speech: + abnormal rate/rhythm/volume of speech (brief, significant latency at times) Affect: + flat affect Mood: + depressed mood and + anxious mood Thought Process: + thought blocking and + concrete thought process Thought Content: + paranoid Suicidal Thoughts: denies suicidal thoughts Homicidal Thoughts: denies homicidal thoughts Hallucinations: + auditory hallucinations Insight: + limited insight Judgment: + poor judgement Vital Signs (Past 24 Hours) Last Vital Signs Temp 37 C 06/22/24 06:37 Pulse 81 06/22/24 06:38 Resp 16 06/22/24 06:37 BP 118/76 06/22/24 06:38 Pulse Ox 100 06/21/24 06:00 O2 Del Method Room Air 06/21/24 06:00 Results & Data ([facility]) Laboratory Results Laboratory Results - last 24 hr 06/21/24 08:12 Estimat Average Glucose 103 Hemoglobin A1c 5.2 Vitamin B12 283 25-OH Vitamin D Total 21.9 L Current Inpatient Medications Current Inpatient Medications: Current Inpatient Medications Acetaminophen (Acetaminophen 325 Mg Tab) 650 mg PO Q4H PRN PRN Reason: Headache or Minor Fever Stop: 07/20/24 00:31 Al Hydrox/Mg Hydrox/Simethicone (Aluminum/Magnesium Susp 30 Ml Udc) 30 ml PO Q4H PRN PRN Reason: GI Upset Stop: 07/20/24 00:31 Bismuth Subsalicylate (Bismuth Subsalicylate 262 Mg Chew) 2 tab PO Q30M PRN PRN Reason: Loose Stool/Diarrhea Stop: 07/20/24 00:31 Hydroxyzine HCl (Hydroxyzine Hcl 25 Mg Tab) 50 mg PO HSZ PRN PRN Reason: Insomnia Stop: 07/20/24 00:31 Hydroxyzine HCl (Hydroxyzine Hcl 25 Mg Tab) 25 mg PO Q4H PRN PRN Reason: Anxiety Stop: 07/20/24 00:31 Lorazepam (Lorazepam 1 Mg Tab) 2 mg PO TID RAFI Stop: 07/21/24 13:59 Last Admin: 06/22/24 08:48 Dose: 2 mg Magnesium Hydroxide (Magnesium Hydroxide Susp 30 Ml Udc) 30 ml PO DAILY PRN PRN Reason: Constipation Stop: 07/20/24 00:31 Olanzapine (Olanzapine 5 Mg Tablet) 5 mg PO BID PRN PRN Reason: Agitation Stop: 07/20/24 08:59 Last Admin: 06/20/24 14:37 Dose: 5 mg Olanzapine (Olanzapine 10 Mg Tab) 10 mg PO HS RAFI Stop: 07/21/24 21:59 Last Admin: 06/21/24 21:34 Dose: 10 mg Sodium Chloride (Sodium Chloride 0.65% Na Soln 45 Ml ([place])) 1 - 2 sprays NA PRN PRN PRN Reason: Nasal Dryness/Congestion Stop: 07/20/24 00:31 Mental Health & Subst Abuse Tx Therapist Name of Therapist: None Salesperson Art Objects Name of Salesperson Art Objects: None Post Discharge Appointments Primary Care Physician Name Of Family Doctor/PCP: Does not know
[2024-06-22] MEDS ORDERED: BENZTROPINE MESYLATE 1 MG TAB PO PRN (16:01)
[2024-06-22] MEDS: QUEtiapine FUMARATE 100 MG TABLET PO SCH (20:48)
[2024-06-23] MEDS: hydrOXYzine HCl 25 MG TAB PO PRN (01:40)
[2024-06-23] MEDS: PALIPERIDONE 3 MG TABCR PO SCH (08:35)
--- NOTE | 2024-06-23 15:55 | Psychiatric Progress Note ---
Date of Service June 23, 2024 Impression / Recommendations Impression JOB RIVERA is a 24-year-old man who is currently homeless and drove to the hospital from [place] for unclear reasons with unknown psychiatric and medical history though reported history of prior psychiatric hospitalizations, and was admitted on 06/20/24 00:02 on a 201 voluntary commitment for bizarre behaviors, and then knew to ask for and signed a 72 hour notice after arriving to the unit. 72 hour notice expires on 06/23/2024 at 5:47am. A:Patient presents in a psychotic state with thought blocking, increased paranoia, auditory hallucinations, limited spontaneous speech. Has been tolerating paliperidone well and planned increase. Vitamin D resulted in inefficient we will start supplementation. Concern for ongoing sleep maintenance dysfunction and will optimize sleep medications. MNPR-ongoing psychosis, paranoia Overall, I spent a total of 45 minutes on this case including meeting with the patient, reviewing the chart, nursing report, multidisciplinary team meeting, orders, and documentation and reviewing external records. (1) Auditory hallucinations: (2) Homeless: (3) Psychosis: (4) Insomnia: (5) Vitamin D insufficiency: Plan 06/23/2024: Start vitamin D 5000 units daily Increase paliperidone to 6 mg daily Start lorazepam 1 mg bedtime Discontinue quetiapine Start hydroxyzine 50 mg at bedtime 06/22/2024: -Discontinue olanzapine -Discontinue ativan -Start paliperidone 3mg daily tomorrow AM -Start Seroquel 100mg HS. 06/21/2024: -Increase olanzapine to 10mg HS -Started and titrated ativan to 2mg TID -Requested records from [facility] for possible previous admissions in attempt to get further history and collateral information 06/20/2024: The patient was [facility] ([facility] unit) on q15 min checks (behavioral with suicide precautions) for safety. The patient will participate in group, recreational, and milieu therapies and will be offered additional individual and family sessions as clinically appropriate. -Start olanzapine 5mg HS -Fasting lipid panel and HbA1c tomorrow, Vit D, Vit B12 Inventory Assets Strengths: able to ask for help, willing for outpatient CM Needs: safety and stabilization, medication adjustment, additional coping skills, increased outpatient services Suicide Risk Level Suicide Risk Level: Moderate (q15 min suicide checks) (denies SI but odd presentation, feels safe in the hospital, able to ask nurses when he needs things) Suicide Risk Level Comments: Risk Factors Assessment Male: Yes : No Do You Have Access To A Gun?: No Mental Health Diagnoses: Yes Previous Psychiatric Hospitalization: Yes Hopelessness: No Protective Factors Assessment Employed: No Interval History Identifying Information JOB RIVERA is a 24-year-old man who is currently homeless and drove to the hospital from [place] for unclear reasons with unknown psychiatric and medical history though reported history of prior psychiatric hospitalizations, and was admitted on 06/20/24 00:02 on a 201 voluntary commitment for bizarre behaviors, and then knew to ask for and signed a 72 hour notice after arriving to the unit. Chief Complaint Psychosis Review of Systems Sleep Information Total Hours of Sleep: 5.25 Meal Information Percent Meal Consumed - Breakfast: 100 Percent Meal Consumed - Lunch: 90 Percent Meal Consumed - Dinner: 100 Subjective Subjective Patient was seen & assessed and interval progress reviewed with treatment team nursing and social work Overnight slept 5.5 hours. Staff concern for thought blocking. On interview patient presents a flat affect with no spontaneous speech. Has trouble with open-ended questioning and requires direct questions. He reports coming to the hospital for trouble sleeping, eating less, and hearing voices. Complains of foot and back pain. Reports noticing a small difference in how he feels. Continues to have sleep maintenance problems. He finished dinner yesterday. He reports being unable to describe the voices. Unsure of anxiety. Unable to tell me if he feels safe. Would not disclose who he lives with. He says that he can return home. Says that I can call mother for collateral information. Physical Exam Mental Examination Appearance: Unkempt Eye Contact: Fleeting Contact Motor Behavior: Slowed Speech: Soft, Delayed and Poverty of Speech Mood: Depressed and Calm Affect: Apprehensive, Blunted, Constricted, Dulled, Flat and Withdrawn Thought Process: [place], Poverty of Content and Slowed Thinking Insight: Poor Judgement: Poor Vital Signs (Past 24 Hours) Last Vital Signs Temp 36.7 C 06/23/24 06:33 Pulse 97 H 06/23/24 06:34 Resp 16 06/23/24 06:33 BP 96/64 L 06/23/24 06:34 Pulse Ox 100 06/21/24 06:00 O2 Del Method Room Air 06/21/24 06:00 Results & Data ([facility]) Current Inpatient Medications Current Inpatient Medications: Current Inpatient Medications Acetaminophen (Acetaminophen 325 Mg Tab) 650 mg PO Q4H PRN PRN Reason: Headache or Minor Fever Stop: 07/20/24 00:31 Al Hydrox/Mg Hydrox/Simethicone (Aluminum/Magnesium Susp 30 Ml Udc) 30 ml PO Q4H PRN PRN Reason: GI Upset Stop: 07/20/24 00:31 Benztropine Mesylate (Benztropine Mesylate 1 Mg Tab) 1 mg PO DAILY PRN PRN Reason: muscle stiffness/acute dystoni Stop: 07/22/24 16:00 Bismuth Subsalicylate (Bismuth Subsalicylate 262 Mg Chew) 2 tab PO Q30M PRN PRN Reason: Loose Stool/Diarrhea Stop: 07/20/24 00:31 Hydroxyzine HCl (Hydroxyzine Hcl 25 Mg Tab) 50 mg PO HSZ PRN PRN Reason: Insomnia Stop: 07/20/24 00:31 Last Admin: 06/23/24 01:40 Dose: 50 mg Hydroxyzine HCl (Hydroxyzine Hcl 25 Mg Tab) 25 mg PO Q4H PRN PRN Reason: Anxiety Stop: 07/20/24 00:31 Hydroxyzine HCl (Hydroxyzine Hcl 25 Mg Tab) 50 mg PO HS RAFI Stop: 07/23/24 21:59 Lorazepam (Lorazepam 1 Mg Tab) 1 mg PO HS RAFI Stop: 07/23/24 21:59 Magnesium Hydroxide (Magnesium Hydroxide Susp 30 Ml Udc) 30 ml PO DAILY PRN PRN Reason: Constipation Stop: 07/20/24 00:31 Olanzapine (Olanzapine 5 Mg Tablet) 5 mg PO BID PRN PRN Reason: Agitation Stop: 07/20/24 08:59 Last Admin: 06/20/24 14:37 Dose: 5 mg Paliperidone (Paliperidone 3 Mg Tabcr) 6 mg PO DAILY RAFI Stop: 07/24/24 08:59 Sodium Chloride (Sodium Chloride 0.65% Na Soln 45 Ml ([place])) 1 - 2 sprays NA PRN PRN PRN Reason: Nasal Dryness/Congestion Stop: 07/20/24 00:31 Vitamin D (Cholecalciferol 125 Mcg (5,000 Units) Tab) 125 mcg PO QAM RAFI Stop: 07/23/24 14:29 Mental Health & Subst Abuse Tx Therapist Name of Therapist: None Rubber Curer Name of Rubber Curer: None Post Discharge Appointments Primary Care Physician Name Of Family Doctor/PCP: Does not know (3) Psychosis Psychosis type: unspecified psychosis type Qualified Code(s): F29 - Unspecified psychosis not due to a substance or known physiological condition
[2024-06-23] MEDS: CHOLECALCIFEROL 125 MCG (5,000 UNITS) TAB PO SCH (16:31)
[2024-06-23] MEDS: LORazepam 1 MG TAB PO SCH (21:08)
[2024-06-23] MEDS: hydrOXYzine HCl 25 MG TAB PO SCH (21:08)
[2024-06-24] MEDS: PALIPERIDONE 3 MG TABCR PO SCH (08:59)
--- NOTE | 2024-06-24 15:39 | Psychiatric Progress Note ---
Date of Service June 24, 2024 Impression / Recommendations Impression CATHY RIVERA is a 24-year-old man who is currently homeless and drove to the hospital from [place] for unclear reasons with unknown psychiatric and medical history though reported history of prior psychiatric hospitalizations, and was admitted on 06/20/24 00:02 on a 201 voluntary commitment for bizarre behaviors, and then knew to ask for and signed a 72 hour notice after arriving to the unit. 72 hour notice expires on 06/23/2024 at 5:47am. A:Patient continues to present a flat affect, concern for thought blocking and amotivation, difficulty expressing emotions. He endorses an improvement in voices however continues to appear preoccupied. Has been tolerating paliperidone well with no evidence of EPS. Has been sleeping better with lorazepam and will plan to continue. MNPR-ongoing psychosis, paranoia Overall, I spent a total of 45 minutes on this case including meeting with the patient, reviewing the chart, nursing report, multidisciplinary team meeting, orders, gathering collateral and documentation and reviewing external records. (1) Auditory hallucinations: (2) Homeless: (3) Psychosis: (4) Insomnia: (5) Vitamin D insufficiency: Plan 06/24/2024: Continue medications and treatment plan 06/23/2024: Start vitamin D 5000 units daily Increase paliperidone to 6 mg daily Start lorazepam 1 mg bedtime Discontinue quetiapine Start hydroxyzine 50 mg at bedtime 06/22/2024: -Discontinue olanzapine -Discontinue ativan -Start paliperidone 3mg daily tomorrow AM -Start Seroquel 100mg HS. 06/21/2024: -Increase olanzapine to 10mg HS -Started and titrated ativan to 2mg TID -Requested records from [facility] for possible previous admissions in attempt to get further history and collateral information 06/20/2024: [facility]) on q15 min checks (behavioral with suicide precautions) for safety. The patient will participate in group, recreational, and milieu therapies and will be offered additional individual and family sessions as clinically appropriate. -Start olanzapine 5mg HS -Fasting lipid panel and HbA1c tomorrow, Vit D, Vit B12 Inventory Assets Strengths: able to ask for help, willing for outpatient CM Needs: safety and stabilization, medication adjustment, additional coping skills, increased outpatient services Suicide Risk Level Suicide Risk Level: Moderate (q15 min suicide checks) (denies SI but odd presentation, feels safe in the hospital, able to ask nurses when he needs things) Suicide Risk Level Comments: Risk Factors Assessment Male: Yes : No Do You Have Access To A Gun?: No Mental Health Diagnoses: Yes Previous Psychiatric Hospitalization: Yes Hopelessness: No Protective Factors Assessment Employed: No Interval History Identifying Information CATHY RIVERA is a 24-year-old man who is currently homeless and drove to the hospital from [place] for unclear reasons with unknown psychiatric and medical history though reported history of prior psychiatric hospitalizations, and was admitted on 06/20/24 00:02 on a 201 voluntary commitment for bizarre behaviors, and then knew to ask for and signed a 72 hour notice after arriving to the unit. Chief Complaint Psychosis Review of Systems Sleep Information Total Hours of Sleep: 8.25 Meal Information Percent Meal Consumed - Breakfast: 80 Percent Meal Consumed - Lunch: 80 Percent Meal Consumed - Dinner: 100 Subjective Subjective Patient was seen & assessed and interval progress reviewed with treatment team nursing and social work Patient attended some groups. Has presented inappropriate posture and affect at times. Concerns that he is often preoccupied. Slept 8.5 hours. On interview he appears ambivalent with a flat affect and often replies "I do not know" to many questions. He reports having trouble staying asleep; is unsure of how many awakenings he had. He reports voices are improved. He has trouble with open- ended questioning and requires direct pointed questions. He reports growing up in [place]. He is unable to tell me any details about his childhood. Unable to tell me details about family psychiatric history. Unable to detail goals of inpatient treatment. He denies SI and HI. Introduced HAYES option and pt currently refuses. Called Cathy's mother with pt permission (Mirza Killian, phone number, ): Pt stopped getting shots 1 year ago. Living with brother. 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 Unable to talk further due to being at work; will call back tomorrow. Physical Exam Mental Examination Appearance: Unkempt Eye Contact: Fleeting Contact Motor Behavior: Slowed Speech: Soft, Delayed and Poverty of Speech Mood: Depressed and Calm Affect: Apprehensive, Blunted, Constricted, Dulled, Flat and Withdrawn Thought Process: [place], Poverty of Content and Slowed Thinking Insight: Poor Judgement: Poor Vital Signs (Past 24 Hours) Last Vital Signs Temp 36.7 C 06/24/24 06:36 Pulse 78 06/24/24 06:37 Resp 16 06/24/24 06:36 BP 99/66 L 06/24/24 06:37 Pulse Ox 100 06/21/24 06:00 O2 Del Method Room Air 06/21/24 06:00 Results & Data ([facility]) Current Inpatient Medications Current Inpatient Medications: Current Inpatient Medications Acetaminophen (Acetaminophen 325 Mg Tab) 650 mg PO Q4H PRN PRN Reason: Headache or Minor Fever Stop: 07/20/24 00:31 Al Hydrox/Mg Hydrox/Simethicone (Aluminum/Magnesium Susp 30 Ml Udc) 30 ml PO Q4H PRN PRN Reason: GI Upset Stop: 07/20/24 00:31 Benztropine Mesylate (Benztropine Mesylate 1 Mg Tab) 1 mg PO DAILY PRN PRN Reason: muscle stiffness/acute dystoni Stop: 07/22/24 16:00 Bismuth Subsalicylate (Bismuth Subsalicylate 262 Mg Chew) 2 tab PO Q30M PRN PRN Reason: Loose Stool/Diarrhea Stop: 07/20/24 00:31 Hydroxyzine HCl (Hydroxyzine Hcl 25 Mg Tab) 50 mg PO HSZ PRN PRN Reason: Insomnia Stop: 07/20/24 00:31 Last Admin: 06/23/24 01:40 Dose: 50 mg Hydroxyzine HCl (Hydroxyzine Hcl 25 Mg Tab) 25 mg PO Q4H PRN PRN Reason: Anxiety Stop: 07/20/24 00:31 Hydroxyzine HCl (Hydroxyzine Hcl 25 Mg Tab) 50 mg PO HS RAFI Stop: 07/23/24 21:59 Last Admin: 06/23/24 21:08 Dose: 50 mg Lorazepam (Lorazepam 1 Mg Tab) 1 mg PO HS RAFI Stop: 07/23/24 21:59 Last Admin: 06/23/24 21:08 Dose: 1 mg Magnesium Hydroxide (Magnesium Hydroxide Susp 30 Ml Udc) 30 ml PO DAILY PRN PRN Reason: Constipation Stop: 07/20/24 00:31 Olanzapine (Olanzapine 5 Mg Tablet) 5 mg PO BID PRN PRN Reason: Agitation Stop: 07/20/24 08:59 Last Admin: 06/20/24 14:37 Dose: 5 mg Paliperidone (Paliperidone 3 Mg Tabcr) 6 mg PO DAILY RAFI Stop: 07/24/24 08:59 Last Admin: 06/24/24 08:59 Dose: 6 mg Sodium Chloride (Sodium Chloride 0.65% Na Soln 45 Ml ([place])) 1 - 2 sprays NA PRN PRN PRN Reason: Nasal Dryness/Congestion Stop: 07/20/24 00:31 Vitamin D (Cholecalciferol 125 Mcg (5,000 Units) Tab) 125 mcg PO QAM RAFI Stop: 07/23/24 14:29 Last Admin: 06/24/24 08:59 Dose: 125 mcg Mental Health & Subst Abuse Tx Therapist Name of Therapist: None Hod Carrier Name of Hod Carrier: None Post Discharge Appointments Primary Care Physician Name Of Family Doctor/PCP: Does not know (3) Psychosis Psychosis type: unspecified psychosis type Qualified Code(s): F29 - Unspecified psychosis not due to a substance or known physiological condition
--- NOTE | 2024-06-25 16:15 | Psychiatric Progress Note ---
Date of Service June 25, 2024 Impression / Recommendations Impression JOB RIVERA is a 24-year-old man who is currently homeless and drove to the hospital from [place] for unclear reasons with unknown psychiatric and medical history though reported history of prior psychiatric hospitalizations, and was admitted on 06/20/24 00:02 on a 201 voluntary commitment for bizarre behaviors, and then knew to ask for and signed a 72 hour notice after arriving to the unit. 72 hour notice expires on 06/23/2024 at 5:47am. A:Patient continues to present a flat affect, appears preoccupied, has difficulty with spontaneous speech or open-ended questioning, sleep maintenance dysfunction, and amotivation. He is guarded on interview and appears paranoid not disclosing he details that would assist with his care and aftercare planning. Attempted to gather collateral from mother. Patient was previously staying with brother however will not sign an JIGNESH for us to contact him. MNPR-ongoing psychosis, paranoia Overall, I spent a total of 45 minutes on this case including meeting with the patient, reviewing the chart, nursing report, multidisciplinary team meeting, orders, gathering collateral and documentation and reviewing external records. (1) Auditory hallucinations: (2) Homeless: (3) Psychosis: (4) Insomnia: (5) Vitamin D insufficiency: Plan 06/25/2024: Increase hydroxyzine to 100 mg at bedtime 06/24/2024: Continue medications and treatment plan 06/23/2024: Start vitamin D 5000 units daily Increase paliperidone to 6 mg daily Start lorazepam 1 mg bedtime Discontinue quetiapine Start hydroxyzine 50 mg at bedtime 06/22/2024: -Discontinue olanzapine -Discontinue ativan -Start paliperidone 3mg daily tomorrow AM -Start Seroquel 100mg HS. 06/21/2024: -Increase olanzapine to 10mg HS -Started and titrated ativan to 2mg TID -Requested records from [facility] for possible previous admissions in attempt to get further history and collateral information 06/20/2024: The patient was admitted to the [facility] ([facility] unit) on q15 min checks (behavioral with suicide precautions) for safety. The patient will participate in group, recreational, and milieu therapies and will be offered additional individual and family sessions as clinically appropriate. -Start olanzapine 5mg HS -Fasting lipid panel and HbA1c tomorrow, Vit D, Vit B12 Inventory Assets Strengths: able to ask for help, willing for outpatient CM Needs: safety and stabilization, medication adjustment, additional coping skills, increased outpatient services Suicide Risk Level Suicide Risk Level: Moderate (q15 min suicide checks) (denies SI but odd presentation, feels safe in the hospital, able to ask nurses when he needs things) Suicide Risk Level Comments: Risk Factors Assessment Male: Yes : No Do You Have Access To A Gun?: No Mental Health Diagnoses: Yes Previous Psychiatric Hospitalization: Yes Hopelessness: No Protective Factors Assessment Employed: No Interval History Identifying Information JOB RIVERA is a 24-year-old man who is currently homeless and drove to the hospital from [place] for unclear reasons with unknown psychiatric and medical history though reported history of prior psychiatric hospitalizations, and was admitted on 06/20/24 00:02 on a 201 voluntary commitment for bizarre behaviors, and then knew to ask for and signed a 72 hour notice after arriving to the unit. Chief Complaint "I am not doing well" Review of Systems Sleep Information Total Hours of Sleep: 5.5 Meal Information Percent Meal Consumed - Breakfast: 80 Percent Meal Consumed - Lunch: 100 Percent Meal Consumed - Dinner: 100 Subjective Subjective Patient was seen & assessed and interval progress reviewed with treatment team nursing and social work Overnight patient slept 5.5 hours. He declined the release of information to his brother. Filed 72-hour notice. Chart review shows patient had history of 302 hospitalization. Patient reports sleeping better. Reports ongoing sleep awakenings. Says voices are quiet. Reports coming to the hospital because he had multiple days of poor sleep and he was hearing voices. When asked more details about whether voices got better he reports being unable to describe it. I did confirm the voices are more quiet. Says he was employed before. Unwilling to tell me what he did for work or where he was staying prior to coming here. Says he was having side effects on Invega Sustenna and that is why he stopped the medication. He says he does not remember what the side effects are. He denies having muscle rigidity or muscle locking while in the medication. Through the conversation the patient appears guarded and presents limited information. He asked multiple questions however has difficulty with follow-through on those questions. He denies suicidal ideation. Called patient mother x2 at 12:18pm and went to [facility]. Physical Exam Mental Examination Appearance: Unkempt Eye Contact: Fleeting Contact Motor Behavior: Slowed Speech: Soft, Delayed and Poverty of Speech Mood: Depressed and Calm Affect: Apprehensive, Blunted, Constricted, Dulled, Flat and Withdrawn Thought Process: [place], Poverty of Content and Slowed Thinking Insight: Poor Judgement: Poor Vital Signs (Past 24 Hours) Last Vital Signs Temp 36.9 C 06/25/24 06:49 Pulse 100 H 06/25/24 06:50 Resp 18 06/25/24 06:49 BP 104/71 06/25/24 06:50 Pulse Ox 100 06/21/24 06:00 O2 Del Method Room Air 06/21/24 06:00 Results & Data ([facility]) Current Inpatient Medications Current Inpatient Medications: Current Inpatient Medications Acetaminophen (Acetaminophen 325 Mg Tab) 650 mg PO Q4H PRN PRN Reason: Headache or Minor Fever Stop: 07/20/24 00:31 Al Hydrox/Mg Hydrox/Simethicone (Aluminum/Magnesium Susp 30 Ml Udc) 30 ml PO Q4H PRN PRN Reason: GI Upset Stop: 07/20/24 00:31 Benztropine Mesylate (Benztropine Mesylate 1 Mg Tab) 1 mg PO DAILY PRN PRN Reason: muscle stiffness/acute dystoni Stop: 07/22/24 16:00 Bismuth Subsalicylate (Bismuth Subsalicylate 262 Mg Chew) 2 tab PO Q30M PRN PRN Reason: Loose Stool/Diarrhea Stop: 07/20/24 00:31 Hydroxyzine HCl (Hydroxyzine Hcl 25 Mg Tab) 50 mg PO HSZ PRN PRN Reason: Insomnia Stop: 07/20/24 00:31 Last Admin: 06/23/24 01:40 Dose: 50 mg Hydroxyzine HCl (Hydroxyzine Hcl 25 Mg Tab) 25 mg PO Q4H PRN PRN Reason: Anxiety Stop: 07/20/24 00:31 Hydroxyzine HCl (Hydroxyzine Hcl 25 Mg Tab) 100 mg PO HS RAFI Stop: 07/25/24 21:59 Lorazepam (Lorazepam 1 Mg Tab) 1 mg PO HS RAFI Stop: 07/23/24 21:59 Last Admin: 06/24/24 21:33 Dose: 1 mg Magnesium Hydroxide (Magnesium Hydroxide Susp 30 Ml Udc) 30 ml PO DAILY PRN PRN Reason: Constipation Stop: 07/20/24 00:31 Olanzapine (Olanzapine 5 Mg Tablet) 5 mg PO BID PRN PRN Reason: Agitation Stop: 07/20/24 08:59 Last Admin: 06/20/24 14:37 Dose: 5 mg Paliperidone (Paliperidone 3 Mg Tabcr) 6 mg PO DAILY RAFI Stop: 07/24/24 08:59 Last Admin: 06/25/24 08:36 Dose: 6 mg Sodium Chloride (Sodium Chloride 0.65% Na Soln 45 Ml ([place])) 1 - 2 sprays NA PRN PRN PRN Reason: Nasal Dryness/Congestion Stop: 07/20/24 00:31 Vitamin D (Cholecalciferol 125 Mcg (5,000 Units) Tab) 125 mcg PO QAM RAFI Stop: 07/23/24 14:29 Last Admin: 06/25/24 08:36 Dose: 125 mcg Mental Health & Subst Abuse Tx Therapist Name of Therapist: None Shipbuilding Draftsperson Name of Shipbuilding Draftsperson: None Post Discharge Appointments Primary Care Physician Name Of Family Doctor/PCP: Does not know (3) Psychosis Psychosis type: unspecified psychosis type Qualified Code(s): F29 - Unspecified psychosis not due to a substance or known physiological condition
[2024-06-25] MEDS: hydrOXYzine HCl 25 MG TAB PO SCH (21:31)
--- NOTE | 2024-06-26 13:24 | Psychiatric Progress Note ---
Date of Service June 26, 2024 Impression / Recommendations Impression CATHY RIVERA is a 24-year-old man who is currently homeless and drove to the hospital from [place] for unclear reasons with unknown psychiatric and medical history though reported history of prior psychiatric hospitalizations, and was admitted on 06/20/24 00:02 on a 201 voluntary commitment for bizarre behaviors, and then knew to ask for and signed a 72 hour notice after arriving to the unit. 72 hour notice expires on 06/23/2024 at 5:47am. A:Patient continues to be preoccupied, concern for auditory hallucinations, thought blocking, and amotivated. Concern for depressive component to illness and will start fluoxetine 10 mg daily. Medication side effects and adverse effects discussed with patient and agreeable. Patient's past medical records were reviewed and indicate recurrent hospitalizations with medication noncompliance, past suicidal ideation and self-harm, anxiety symptoms, past depression diagnosis and treatment. Has been tried on multiple antipsychotics and improved with paliperidone. Noted patient is slightly more verbal since admission and has presented improved sleep. Concerned that sleep maintenance dysfunction is due to active depression. Patient is disappointed that his life trajectory has been altered due to illness and appears hopeless. He presents limited insight into his condition. MNPR-ongoing psychosis, paranoia Overall, I spent a total of 60 minutes on this case including meeting with the patient, reviewing the chart, nursing report, multidisciplinary team meeting, orders, gathering collateral and documentation and reviewing external records. (1) Schizophrenia, paranoid type: (2) Anxiety and depression: (3) Auditory hallucinations: (4) Insomnia: (5) Vitamin D insufficiency: (6) Homeless: Plan 06/26/2024: Start fluoxetine 10 mg daily 06/25/2024: Increase hydroxyzine to 100 mg at bedtime 06/24/2024: Continue medications and treatment plan 06/23/2024: Start vitamin D 5000 units daily Increase paliperidone to 6 mg daily Start lorazepam 1 mg bedtime Discontinue quetiapine Start hydroxyzine 50 mg at bedtime 06/22/2024: -Discontinue olanzapine -Discontinue ativan -Start paliperidone 3mg daily tomorrow AM -Start Seroquel 100mg HS. 06/21/2024: -Increase olanzapine to 10mg HS -Started and titrated ativan to 2mg TID -Requested records from [facility] for possible previous admissions in attempt to get further history and collateral information 06/20/2024: The patient was admitted to the [facility] ([facility] inpatient mental health unit) on q15 min checks (behavioral with suicide precautions) for safety. The patient will participate in group, recreational, and milieu therapies and will be offered additional individual and family sessions as clinically appropriate. -Start olanzapine 5mg HS -Fasting lipid panel and HbA1c tomorrow, Vit D, Vit B12 Inventory Assets Strengths: able to ask for help, willing for outpatient CM Needs: safety and stabilization, medication adjustment, additional coping skills, increased outpatient services Suicide Risk Level Suicide Risk Level: Moderate (q15 min suicide checks) (denies SI but odd presentation, feels safe in the hospital, able to ask nurses when he needs things) Suicide Risk Level Comments: Risk Factors Assessment Male: Yes : No Do You Have Access To A Gun?: No Mental Health Diagnoses: Yes Previous Psychiatric Hospitalization: Yes Hopelessness: No Protective Factors Assessment Employed: No Interval History Identifying Information CATHY RIVERA is a 24-year-old man who is currently homeless and drove to the hospital from [place] for unclear reasons with unknown psychiatric and medical history though reported history of prior psychiatric hospitalizations, and was admitted on 06/20/24 00:02 on a 201 voluntary commitment for bizarre behaviors, and then knew to ask for and signed a 72 hour notice after arriving to the unit. Chief Complaint Psychosis, depression Review of Systems Sleep Information Total Hours of Sleep: 0.5 Meal Information Percent Meal Consumed - Breakfast: 100 Percent Meal Consumed - Lunch: 100 Percent Meal Consumed - Dinner: 75 Subjective Subjective Patient was seen & assessed and interval progress reviewed with treatment team nursing and social work Nursing reports overnight patient was staring blankly the day room. At times laughing inappropriately. Slept 6.5 hours. Appears paranoid at times. On interview he reports sleeping is improved. Guarded about whether voices have improved but appears they are still present. Reports future plans to continue employment and live in alf. Unwilling to disclose what he does for employment saying he does not feel comfortable telling me. Reports being in alf in the past. I discussed the findings of my document review and expressed concerns about recurrent hospitalizations and medication nonadherence. Patient expresses disappointment that he is not able to achieve what he wants due to his condition. Medical record review: Patient was seen for outpatient visit at [facility] on 03/19/[address] aDny Singh: At that time he was not taking his prescribed Seroquel, paliperidone, sertraline and denied active AVH or SI. At that time presented a flat affect. In a note from hospital ER 03/17/2020 was on 225mg of Effexor and Gabapentin 200mg TID. Presented on 02/17/19 with persistent paranoia and pressure to harm himself with puncture wounds to left hand (first episode) and was on Abilify 2mg which was ineffective. H/o noncompliance with medications. Past work as a [employer]IVE [employer]. Symptoms noted: "overworking without med compliance. Pt c/o AH, racing thoughts, thought blocking., internally distracted, inappropriate laughter, paranoia. Past 72 hour notices while inpatient. Multiple past inpatient psychiatric hospitalizations. (three inpatient in 2019+1 inpatient at [facility]). Past dx of MDD, alcohol use diorder, cannabis use disorder. Past trials of Haldol, Zyprexa, risperidone. Pt did well with [employer]. Pt has two brothers, one sister. Called Cathy's mother with pt permission (Solomonjonny Killian, phone number, ): Pt has been in touch with mother. 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 Was doing well and bought a car last week. Living with his brother. Pt's work was worried about his absence and job put a missing person search because he was gone for 2 days. Sent police to brother's home. Describes the pt as smart, kind, and hard working. Gets HAYES injection at [facility]. Unsure of outpatient psychiatrist. Mother requesting we fax a letter to his work to inform them about his medical leave of absence. Mother will talk to pt about continued hospitalization. Physical Exam Mental Examination Appearance: Unkempt Eye Contact: Fleeting Contact Motor Behavior: Slowed Speech: Soft, Delayed and Poverty of Speech Mood: Depressed and Calm Affect: Apprehensive, Blunted, Constricted, Dulled, Flat and Withdrawn Thought Process: [place], Poverty of Content and Slowed Thinking Thought Content: Poverty of Content Hallucinations: Auditory Insight: Poor Judgement: Poor Vital Signs (Past 24 Hours) Last Vital Signs Temp 36.7 C 06/26/24 06:37 Pulse 94 H 06/26/24 06:38 Resp 16 06/26/24 06:37 BP 86/57 L 06/26/24 06:38 Pulse Ox 100 06/21/24 06:00 O2 Del Method Room Air 06/21/24 06:00 Results & Data ([facility]) Current Inpatient Medications Current Inpatient Medications: Current Inpatient Medications Acetaminophen (Acetaminophen 325 Mg Tab) 650 mg PO Q4H PRN PRN Reason: Headache or Minor Fever Stop: 07/20/24 00:31 Al Hydrox/Mg Hydrox/Simethicone (Aluminum/Magnesium Susp 30 Ml Udc) 30 ml PO Q4H PRN PRN Reason: GI Upset Stop: 07/20/24 00:31 Benztropine Mesylate (Benztropine Mesylate 1 Mg Tab) 1 mg PO DAILY PRN PRN Reason: muscle stiffness/acute dystoni Stop: 07/22/24 16:00 Bismuth Subsalicylate (Bismuth Subsalicylate 262 Mg Chew) 2 tab PO Q30M PRN PRN Reason: Loose Stool/Diarrhea Stop: 07/20/24 00:31 Fluoxetine HCl (Fluoxetine Hcl 10 Mg Cap) 10 mg PO QAM RAFI Stop: 07/26/24 11:29 Hydroxyzine HCl (Hydroxyzine Hcl 25 Mg Tab) 50 mg PO HSZ PRN PRN Reason: Insomnia Stop: 07/20/24 00:31 Last Admin: 06/23/24 01:40 Dose: 50 mg Hydroxyzine HCl (Hydroxyzine Hcl 25 Mg Tab) 25 mg PO Q4H PRN PRN Reason: Anxiety Stop: 07/20/24 00:31 Hydroxyzine HCl (Hydroxyzine Hcl 25 Mg Tab) 100 mg PO HS RAFI Stop: 07/25/24 21:59 Last Admin: 06/25/24 21:31 Dose: 100 mg Lorazepam (Lorazepam 1 Mg Tab) 1 mg PO HS RAFI Stop: 07/23/24 21:59 Last Admin: 06/25/24 21:31 Dose: 1 mg Magnesium Hydroxide (Magnesium Hydroxide Susp 30 Ml Udc) 30 ml PO DAILY PRN PRN Reason: Constipation Stop: 07/20/24 00:31 Olanzapine (Olanzapine 5 Mg Tablet) 5 mg PO BID PRN PRN Reason: Agitation Stop: 07/20/24 08:59 Last Admin: 06/20/24 14:37 Dose: 5 mg Paliperidone (Paliperidone 3 Mg Tabcr) 6 mg PO DAILY RAFI Stop: 07/24/24 08:59 Last Admin: 06/26/24 08:36 Dose: 6 mg Sodium Chloride (Sodium Chloride 0.65% Na Soln 45 Ml ([place])) 1 - 2 sprays NA PRN PRN PRN Reason: Nasal Dryness/Congestion Stop: 07/20/24 00:31 Vitamin D (Cholecalciferol 125 Mcg (5,000 Units) Tab) 125 mcg PO QAM RAFI Stop: 07/23/24 14:29 Last Admin: 06/26/24 08:36 Dose: 125 mcg Mental Health & Subst Abuse Tx Therapist Name of Therapist: None Lacing Cutter Name of Lacing Cutter: None Post Discharge Appointments Primary Care Physician Name Of Family Doctor/PCP: Does not know
[2024-06-26] MEDS: FLUoxetine HCL 10 MG CAP PO SCH (13:26)
[2024-06-26] MEDS: ACETAMINOPHEN 325 MG TAB PO PRN (17:20)
--- NOTE | 2024-06-27 14:53 | Psychiatric Progress Note ---
Date of Service June 27, 2024 Impression / Recommendations Impression JOB RIVERA is a 24-year-old man who is currently homeless and drove to the hospital from [place] for unclear reasons with unknown psychiatric and medical history though reported history of prior psychiatric hospitalizations, and was admitted on 06/20/24 00:02 on a 201 voluntary commitment for bizarre behaviors, and then knew to ask for and signed a 72 hour notice after arriving to the unit. 72 hour notice expires on 06/23/2024 at 5:47am. A: Patient continues to present thought blocking, amotivation, preoccupation with concern for active psychosis, paranoid and guarded. Slight nausea and headache side effect from fluoxetine and should be self-limited. Sleep has improved and we will continue to monitor. Plan to optimize his paliperidone dose today. MNPR-ongoing psychosis, paranoia Overall, I spent a total of 45 minutes on this case including meeting with the patient, reviewing the chart, nursing report, multidisciplinary team meeting, orders, gathering collateral and documentation and reviewing external records. (1) Schizophrenia, paranoid type: (2) Anxiety and depression: (3) Auditory hallucinations: (4) Insomnia: (5) Vitamin D insufficiency: (6) Homeless: Plan 06/27/2024: Increase paliperidone to 7.5 mg every morning 06/26/2024: Start fluoxetine 10 mg daily 06/25/2024: Increase hydroxyzine to 100 mg at bedtime 06/24/2024: Continue medications and treatment plan 06/23/2024: Start vitamin D 5000 units daily Increase paliperidone to 6 mg daily Start lorazepam 1 mg bedtime Discontinue quetiapine Start hydroxyzine 50 mg at bedtime 06/22/2024: -Discontinue olanzapine -Discontinue ativan -Start paliperidone 3mg daily tomorrow AM -Start Seroquel 100mg HS. 06/21/2024: -Increase olanzapine to 10mg HS -Started and titrated ativan to 2mg TID -Requested records from [facility] for possible previous admissions in attempt to get further history and collateral information 06/20/2024: The patient was admitted to the [facility] ([facility] mental health unit) on q15 min checks (behavioral with suicide precautions) for safety. The patient will participate in group, recreational, and milieu therapies and will be offered additional individual and family sessions as clinically appropriate. -Start olanzapine 5mg HS -Fasting lipid panel and HbA1c tomorrow, Vit D, Vit B12 Inventory Assets Strengths: able to ask for help, willing for outpatient CM Needs: safety and stabilization, medication adjustment, additional coping skills, increased outpatient services Suicide Risk Level Suicide Risk Level: Moderate (q15 min suicide checks) (denies SI but odd presentation, feels safe in the hospital, able to ask nurses when he needs things) Suicide Risk Level Comments: Risk Factors Assessment Male: Yes : No Do You Have Access To A Gun?: No Mental Health Diagnoses: Yes Previous Psychiatric Hospitalization: Yes Hopelessness: No Protective Factors Assessment Employed: No Interval History Identifying Information JOB RIVERA is a 24-year-old man who is currently homeless and drove to the hospital from [place] for unclear reasons with unknown psychiatric and medical history though reported history of prior psychiatric hospitalizations, and was admitted on 06/20/24 00:02 on a 201 voluntary commitment for bizarre behaviors, and then knew to ask for and signed a 72 hour notice after arriving to the unit. Chief Complaint Psychosis Review of Systems Sleep Information Total Hours of Sleep: 8.25 Meal Information Percent Meal Consumed - Breakfast: 100 Percent Meal Consumed - Lunch: 100 Percent Meal Consumed - Dinner: 100 Subjective Subjective Patient was seen & assessed and interval progress reviewed with treatment team nursing and social work Overnight his attending groups without participating. Good self-care. Continues to be paranoid and does not present much details to staff. Complaining of nausea and headache. Slept 8.25 hours. On interview the patient presents a flat affect and is guarded. He is asked about voices and he looks around and then says no however there is concern he is still preoccupied and responding to internal stimuli. He reports sleeping well last night with no awakenings. He confirms that he was working recently. He would not give me details about his new car that he bought or whether there has been an improvement in his thought process. He reports no current nausea or headache. He denies SI. In the past he reports having hospitalizations that were short and were also long and took weeks to months for improvement. Physical Exam Mental Examination Appearance: Unkempt Eye Contact: Fleeting Contact Motor Behavior: Slowed Speech: Soft, Delayed and Poverty of Speech Mood: Depressed and Calm Affect: Apprehensive, Blunted, Constricted, Dulled, Flat and Withdrawn Thought Process: [place], Poverty of Content and Slowed Thinking Thought Content: Poverty of Content Hallucinations: Auditory Insight: Poor Judgement: Poor Vital Signs (Past 24 Hours) Last Vital Signs Temp 36.7 C 06/27/24 06:41 Pulse 79 06/27/24 06:41 Resp 16 06/27/24 06:41 BP 95/57 L 06/27/24 06:41 Pulse Ox 100 06/21/24 06:00 O2 Del Method Room Air 06/21/24 06:00 Results & Data ([facility]) Current Inpatient Medications Current Inpatient Medications: Current Inpatient Medications Acetaminophen (Acetaminophen 325 Mg Tab) 650 mg PO Q4H PRN PRN Reason: Headache or Minor Fever Stop: 07/20/24 00:31 Last Admin: 06/26/24 17:20 Dose: 650 mg Al Hydrox/Mg Hydrox/Simethicone (Aluminum/Magnesium Susp 30 Ml Udc) 30 ml PO Q4H PRN PRN Reason: GI Upset Stop: 07/20/24 00:31 Benztropine Mesylate (Benztropine Mesylate 1 Mg Tab) 1 mg PO DAILY PRN PRN Reason: muscle stiffness/acute dystoni Stop: 07/22/24 16:00 Bismuth Subsalicylate (Bismuth Subsalicylate 262 Mg Chew) 2 tab PO Q30M PRN PRN Reason: Loose Stool/Diarrhea Stop: 07/20/24 00:31 Fluoxetine HCl (Fluoxetine Hcl 10 Mg Cap) 10 mg PO QAM RAFI Stop: 07/26/24 11:29 Last Admin: 06/27/24 08:32 Dose: 10 mg Hydroxyzine HCl (Hydroxyzine Hcl 25 Mg Tab) 50 mg PO HSZ PRN PRN Reason: Insomnia Stop: 07/20/24 00:31 Last Admin: 06/23/24 01:40 Dose: 50 mg Hydroxyzine HCl (Hydroxyzine Hcl 25 Mg Tab) 25 mg PO Q4H PRN PRN Reason: Anxiety Stop: 07/20/24 00:31 Hydroxyzine HCl (Hydroxyzine Hcl 25 Mg Tab) 100 mg PO HS RAFI Stop: 07/25/24 21:59 Last Admin: 06/26/24 20:48 Dose: 100 mg Lorazepam (Lorazepam 1 Mg Tab) 1 mg PO HS RAFI Stop: 07/23/24 21:59 Last Admin: 06/26/24 20:48 Dose: 1 mg Magnesium Hydroxide (Magnesium Hydroxide Susp 30 Ml Udc) 30 ml PO DAILY PRN PRN Reason: Constipation Stop: 07/20/24 00:31 Olanzapine (Olanzapine 5 Mg Tablet) 5 mg PO BID PRN PRN Reason: Agitation Stop: 07/20/24 08:59 Last Admin: 06/20/24 14:37 Dose: 5 mg Paliperidone (Paliperidone 1.5 Mg Tabcr) 7.5 mg PO DAILY RAFI Stop: 07/28/24 08:59 Sodium Chloride (Sodium Chloride 0.65% Na Soln 45 Ml ([place])) 1 - 2 sprays NA PRN PRN PRN Reason: Nasal Dryness/Congestion Stop: 07/20/24 00:31 Vitamin D (Cholecalciferol 125 Mcg (5,000 Units) Tab) 125 mcg PO QAM RAFI Stop: 07/23/24 14:29 Last Admin: 06/27/24 08:32 Dose: 125 mcg Mental Health & Subst Abuse Tx Therapist Name of Therapist: None Pattern And Chain Maker Name of Pattern And Chain Maker: None Post Discharge Appointments Primary Care Physician Name Of Family Doctor/PCP: Does not know
[2024-06-28] MEDS: PALIPERIDONE 1.5 MG TABCR PO SCH (08:36)
--- NOTE | 2024-06-28 15:12 | Psychiatric Progress Note ---
Date of Service June 28, 2024 Impression / Recommendations Impression JOB RIVERA is a 24-year-old man who is currently homeless and drove to the hospital from [place] for unclear reasons with unknown psychiatric and medical history though reported history of prior psychiatric hospitalizations, and was admitted on 06/20/24 00:02 on a 201 voluntary commitment for bizarre behaviors. A: Patient continues to present a flat nonreactive affect, limited speech, paranoia, auditory hallucinations, limited insight. From admission has presented more spontaneous behavior, improved sleep, more engagement in groups. Patient refusing fluoxetine and educated about our concerns including self- limited headache. MNPR-ongoing psychosis, paranoia Overall, I spent a total of 45 minutes on this case including meeting with the patient, reviewing the chart, nursing report, multidisciplinary team meeting, orders, gathering collateral and documentation and reviewing external records. (1) Schizophrenia, paranoid type: (2) Anxiety and depression: (3) Auditory hallucinations: (4) Insomnia: (5) Vitamin D insufficiency: (6) Homeless: Plan 06/28/2024: Continue medications and treatment plan 06/27/2024: Increase paliperidone to 7.5 mg every morning 06/26/2024: Start fluoxetine 10 mg daily 06/25/2024: Increase hydroxyzine to 100 mg at bedtime 06/24/2024: Continue medications and treatment plan 06/23/2024: Start vitamin D 5000 units daily Increase paliperidone to 6 mg daily Start lorazepam 1 mg bedtime Discontinue quetiapine Start hydroxyzine 50 mg at bedtime 06/22/2024: -Discontinue olanzapine -Discontinue ativan -Start paliperidone 3mg daily tomorrow AM -Start Seroquel 100mg HS. 06/21/2024: -Increase olanzapine to 10mg HS -Started and titrated ativan to 2mg TID -Requested records from [facility] for possible previous admissions in attempt to get further history and collateral information 06/20/2024: The patient was admitted to the [facility] on q15 min checks (behavioral with suicide precautions) for safety. The patient will participate in group, recreational, and milieu therapies and will be offered additional individual and family sessions as clinically appro priate. -Start olanzapine 5mg HS -Fasting lipid panel and HbA1c tomorrow, Vit D, Vit B12 Inventory Assets Strengths: able to ask for help, willing for outpatient CM Needs: safety and stabilization, medication adjustment, additional coping skills, increased outpatient services Suicide Risk Level Suicide Risk Level: Moderate (q15 min suicide checks) (denies SI but odd presentation, feels safe in the hospital, able to ask nurses when he needs things) Suicide Risk Level Comments: Risk Factors Assessment Male: Yes : No Do You Have Access To A Gun?: No Mental Health Diagnoses: Yes Previous Psychiatric Hospitalization: Yes Hopelessness: No Protective Factors Assessment Employed: No Interval History Identifying Information JOB RIVERA is a 24-year-old man who is currently homeless and drove to the hospital from [place] for unclear reasons with unknown psychiatric and medical history though reported history of prior psychiatric hospitalizations, and was admitted on 06/20/24 00:02 on a 201 voluntary commitment for bizarre behaviors. Chief Complaint Psychosis Review of Systems Sleep Information Total Hours of Sleep: 6.5 Meal Information Percent Meal Consumed - Breakfast: 100 Percent Meal Consumed - Lunch: 100 Percent Meal Consumed - Dinner: 90 Subjective Subjective Patient was seen & assessed and interval progress reviewed with treatment team nursing and social work Patient attending groups however limited participation. Per counseling patient has been more spontaneous in his speech and behavior. At times laughing inappropriately to himself. Engaging in regular self-care. Patient refused fluoxetine this morning citing pain. On interview patient presents a flat affect and limited spontaneous speech. He endorses a fair mood. Appears preoccupied by voices however denies hearing them. Says he slept well with 1 awakening. Has been in touch with his family. No physical signs of EPS on exam. Patient presents plan to be discharged to a residential. When asked about family's involvement and what occurred prior to hospitalization patient appears guarded and did not want to disclose any details. Physical Exam Mental Examination Appearance: Unkempt Eye Contact: Fleeting Contact Motor Behavior: Slowed Speech: Soft, Delayed and Poverty of Speech Mood: Depressed and Calm Affect: Apprehensive, Blunted, Constricted, Dulled, Flat and Withdrawn Thought Process: [place], Poverty of Content and Slowed Thinking Thought Content: Poverty of Content Hallucinations: Auditory Insight: Poor Judgement: Poor Vital Signs (Past 24 Hours) Last Vital Signs Temp 36.6 C 06/28/24 06:20 Pulse 83 06/28/24 06:21 Resp 16 06/28/24 06:20 BP 105/66 06/28/24 06:21 Pulse Ox 100 06/21/24 06:00 O2 Del Method Room Air 06/21/24 06:00 Results & Data ([facility]) Current Inpatient Medications Current Inpatient Medications: Current Inpatient Medications Acetaminophen (Acetaminophen 325 Mg Tab) 650 mg PO Q4H PRN PRN Reason: Headache or Minor Fever Stop: 07/20/24 00:31 Last Admin: 06/26/24 17:20 Dose: 650 mg Al Hydrox/Mg Hydrox/Simethicone (Aluminum/Magnesium Susp 30 Ml Udc) 30 ml PO Q4H PRN PRN Reason: GI Upset Stop: 07/20/24 00:31 Benztropine Mesylate (Benztropine Mesylate 1 Mg Tab) 1 mg PO DAILY PRN PRN Reason: muscle stiffness/acute dystoni Stop: 07/22/24 16:00 Bismuth Subsalicylate (Bismuth Subsalicylate 262 Mg Chew) 2 tab PO Q30M PRN PRN Reason: Loose Stool/Diarrhea Stop: 07/20/24 00:31 Fluoxetine HCl (Fluoxetine Hcl 10 Mg Cap) 10 mg PO QAM RAFI Stop: 07/26/24 11:29 Last Admin: 06/28/24 08:40 Dose: Not Given Hydroxyzine HCl (Hydroxyzine Hcl 25 Mg Tab) 50 mg PO HSZ PRN PRN Reason: Insomnia Stop: 07/20/24 00:31 Last Admin: 06/23/24 01:40 Dose: 50 mg Hydroxyzine HCl (Hydroxyzine Hcl 25 Mg Tab) 25 mg PO Q4H PRN PRN Reason: Anxiety Stop: 07/20/24 00:31 Hydroxyzine HCl (Hydroxyzine Hcl 25 Mg Tab) 100 mg PO HS RAFI Stop: 07/25/24 21:59 Last Admin: 06/27/24 20:38 Dose: 100 mg Lorazepam (Lorazepam 1 Mg Tab) 1 mg PO HS RAFI Stop: 07/23/24 21:59 Last Admin: 06/27/24 20:38 Dose: 1 mg Magnesium Hydroxide (Magnesium Hydroxide Susp 30 Ml Udc) 30 ml PO DAILY PRN PRN Reason: Constipation Stop: 07/20/24 00:31 Olanzapine (Olanzapine 5 Mg Tablet) 5 mg PO BID PRN PRN Reason: Agitation Stop: 07/20/24 08:59 Last Admin: 06/20/24 14:37 Dose: 5 mg Paliperidone (Paliperidone 1.5 Mg Tabcr) 7.5 mg PO DAILY RAFI Stop: 07/28/24 08:59 Last Admin: 06/28/24 08:36 Dose: 7.5 mg Sodium Chloride (Sodium Chloride 0.65% Na Soln 45 Ml ([place])) 1 - 2 sprays NA PRN PRN PRN Reason: Nasal Dryness/Congestion Stop: 07/20/24 00:31 Vitamin D (Cholecalciferol 125 Mcg (5,000 Units) Tab) 125 mcg PO QAM RAFI Stop: 07/23/24 14:29 Last Admin: 06/28/24 08:36 Dose: 125 mcg Mental Health & Subst Abuse Tx Therapist Name of Therapist: None Food Handler Name of Food Handler: None Post Discharge Appointments Primary Care Physician Name Of Family Doctor/PCP: Does not know
--- NOTE | 2024-06-29 15:24 | Psychiatric Progress Note ---
Date of Service June 29, 2024 Impression / Recommendations Impression JOB RIVERA is a 24-year-old man who is currently homeless and drove to the hospital from [place] for unclear reasons with unknown psychiatric and medical history though reported history of prior psychiatric hospitalizations, and was admitted on 06/20/24 00:02 on a 201 voluntary commitment for bizarre behaviors. A: Patient continues to be preoccupied, concern for responding to internal stimuli/auditory hallucinations, guarded about brother and initial presentation, flat non reactive affect. Is more spontaneous with his speech now and doing better with open ended questioning. SW to assist with medical assistance application. Sleep improved. MNPR-ongoing psychosis, paranoia Overall, I spent a total of 45 minutes on this case including meeting with the patient, reviewing the chart, nursing report, multidisciplinary team meeting, orders, gathering collateral and documentation and reviewing external records. (1) Schizophrenia, paranoid type: (2) Anxiety and depression: (3) Auditory hallucinations: (4) Insomnia: (5) Vitamin D insufficiency: (6) Homeless: Plan 06/29/24: Continue medications and treatment plan. 06/28/2024: Continue medications and treatment plan 06/27/2024: Increase paliperidone to 7.5 mg every morning 06/26/2024: Start fluoxetine 10 mg daily 06/25/2024: Increase hydroxyzine to 100 mg at bedtime 06/24/2024: Continue medications and treatment plan 06/23/2024: Start vitamin D 5000 units daily Increase paliperidone to 6 mg daily Start lorazepam 1 mg bedtime Discontinue quetiapine Start hydroxyzine 50 mg at bedtime 06/22/2024: -Discontinue olanzapine -Discontinue ativan -Start paliperidone 3mg daily tomorrow AM -Start Seroquel 100mg HS. 06/21/2024: -Increase olanzapine to 10mg HS -Started and titrated ativan to 2mg TID -Requested records from [facility] for possible previous admissions in attempt to get further history and collateral information 06/20/2024: The patient was admitted to the [facility] ([facility] mental [facility] unit) on q15 min checks (behavioral with suicide precautions) for safety. The patient will participate in group, recreational, and milieu therapies and will be offered additional individual and family sessions as clinically appropriate. -Start olanzapine 5mg HS -Fasting lipid panel and HbA1c tomorrow, Vit D, Vit B12 Inventory Assets Strengths: able to ask for help, willing for outpatient CM Needs: safety and stabilization, medication adjustment, additional coping skills, increased outpatient services Suicide Risk Level Suicide Risk Level: Moderate (q15 min suicide checks) (denies SI but odd presentation, feels safe in the hospital, able to ask nurses when he needs things) Suicide Risk Level Comments: Risk Factors Assessment Male: Yes : No Do You Have Access To A Gun?: No Mental Health Diagnoses: Yes Previous Psychiatric Hospitalization: Yes Hopelessness: No Protective Factors Assessment Employed: No Interval History Identifying Information JOB RIVERA is a 24-year-old man who is currently homeless and drove to the hospital from [place] for unclear reasons with unknown psychiatric and medical history though reported history of prior psychiatric hospitalizations, and was admitted on 06/20/24 00:02 on a 201 voluntary commitment for bizarre behaviors. Chief Complaint Psychosis Review of Systems Sleep Information Total Hours of Sleep: 6.5 Meal Information Percent Meal Consumed - Breakfast: 100 Percent Meal Consumed - Lunch: 100 Percent Meal Consumed - Dinner: 100 Subjective Subjective Patient was seen & assessed and interval progress reviewed with treatment team nursing and social work Overnight has been out of his room more. Appears preoccupied. Some engagement in groups. Refused AM fluoxetine. On interview the pt presents a flat affect. Reports good mood. Does not have health insurance through his employer, reports previously being on welfare and lost health insurance. Appeared confused when I asked him if was looking for health insurance on the marketplace. Agreeable for medical assistance. When asked out his discharge plan pt said he will catch up with responsibilities, continue to work, and keep appointments. Unclear where he will live. When asked about his brother and if he can go said he would rather not talk about it. Asked about voices, looks around first, then rates it 0/10. Reports sleeping well, no awakenings. Physical Exam Mental Examination Appearance: Unkempt Eye Contact: Fleeting Contact Motor Behavior: Slowed Speech: Soft, Delayed and Poverty of Speech Mood: Depressed and Calm Affect: Apprehensive, Blunted, Constricted, Dulled, Flat and Withdrawn Thought Process: [place], Poverty of Content and Slowed Thinking Thought Content: Poverty of Content Hallucinations: Auditory Insight: Poor Judgement: Poor Vital Signs (Past 24 Hours) Last Vital Signs Temp 36.7 C 06/29/24 06:27 Pulse 94 H 06/29/24 06:27 Resp 16 06/29/24 06:27 BP 103/64 06/29/24 06:27 Pulse Ox 100 06/21/24 06:00 O2 Del Method Room Air 06/21/24 06:00 Results & Data ([facility]) Current Inpatient Medications Current Inpatient Medications: Current Inpatient Medications Acetaminophen (Acetaminophen 325 Mg Tab) 650 mg PO Q4H PRN PRN Reason: Headache or Minor Fever Stop: 07/20/24 00:31 Last Admin: 06/26/24 17:20 Dose: 650 mg Al Hydrox/Mg Hydrox/Simethicone (Aluminum/Magnesium Susp 30 Ml Udc) 30 ml PO Q4H PRN PRN Reason: GI Upset Stop: 07/20/24 00:31 Benztropine Mesylate (Benztropine Mesylate 1 Mg Tab) 1 mg PO DAILY PRN PRN Reason: muscle stiffness/acute dystoni Stop: 07/22/24 16:00 Bismuth Subsalicylate (Bismuth Subsalicylate 262 Mg Chew) 2 tab PO Q30M PRN PRN Reason: Loose Stool/Diarrhea Stop: 07/20/24 00:31 Fluoxetine HCl (Fluoxetine Hcl 10 Mg Cap) 10 mg PO QAM RAFI Stop: 07/26/24 11:29 Last Admin: 06/29/24 09:06 Dose: Not Given Hydroxyzine HCl (Hydroxyzine Hcl 25 Mg Tab) 50 mg PO HSZ PRN PRN Reason: Insomnia Stop: 07/20/24 00:31 Last Admin: 06/23/24 01:40 Dose: 50 mg Hydroxyzine HCl (Hydroxyzine Hcl 25 Mg Tab) 25 mg PO Q4H PRN PRN Reason: Anxiety Stop: 07/20/24 00:31 Hydroxyzine HCl (Hydroxyzine Hcl 25 Mg Tab) 100 mg PO HS RAFI Stop: 07/25/24 21:59 Last Admin: 06/28/24 21:50 Dose: 100 mg Lorazepam (Lorazepam 1 Mg Tab) 1 mg PO HS RAFI Stop: 07/23/24 21:59 Last Admin: 06/28/24 21:50 Dose: 1 mg Magnesium Hydroxide (Magnesium Hydroxide Susp 30 Ml Udc) 30 ml PO DAILY PRN PRN Reason: Constipation Stop: 07/20/24 00:31 Olanzapine (Olanzapine 5 Mg Tablet) 5 mg PO BID PRN PRN Reason: Agitation Stop: 07/20/24 08:59 Last Admin: 06/20/24 14:37 Dose: 5 mg Paliperidone (Paliperidone 1.5 Mg Tabcr) 7.5 mg PO DAILY RAFI Stop: 07/28/24 08:59 Last Admin: 06/29/24 09:02 Dose: 7.5 mg Sodium Chloride (Sodium Chloride 0.65% Na Soln 45 Ml ([place])) 1 - 2 sprays NA PRN PRN PRN Reason: Nasal Dryness/Congestion Stop: 07/20/24 00:31 Vitamin D (Cholecalciferol 125 Mcg (5,000 Units) Tab) 125 mcg PO QAM RAFI Stop: 07/23/24 14:29 Last Admin: 06/29/24 08:59 Dose: 125 mcg Mental Health & Subst Abuse Tx Therapist Name of Therapist: None Elevator Starter Name of Elevator Starter: None Post Discharge Appointments Primary Care Physician Name Of Family Doctor/PCP: Does not know
--- NOTE | 2024-06-30 09:46 | Psychiatric Progress Note ---
Date of Service June 30, 2024 Impression / Recommendations Impression JOB RIVERA is a 24-year-old man who is currently homeless and drove to the hospital from [place] for unclear reasons with unknown psychiatric and medical history though reported history of prior psychiatric hospitalizations, and was admitted on 06/20/24 00:02 on a 201 voluntary commitment for bizarre behaviors. A: Ongoing internal preoccupation, thought blocking, and hallucinations but speaking a little bit more. Some reported side effects from Invega, will start eye drops and scheduled cogentin to see if this helps. Nicotine replacement added. Discontinue fluoxetine given his concern this is causing side effects and refusal to take it. Low BP this morning but denies any side effects related to this. MNPR-ongoing psychosis, paranoia Overall, I spent a total of 50 minutes on this case including meeting with the patient, reviewing the chart, nursing report, orders, gathering collateral and documentation. (1) Schizophrenia, paranoid type: (2) Anxiety and depression: (3) Auditory hallucinations: (4) Insomnia: (5) Vitamin D insufficiency: Plan 06/30/2024: -Start Cogentin 1mg HS -Continue paliperidone -Discontinue fluoxetine 06/29/24: Continue medications and treatment plan. 06/28/2024: Continue medications and treatment plan 06/27/2024: Increase paliperidone to 7.5 mg every morning 06/26/2024: Start fluoxetine 10 mg daily 06/25/2024: Increase hydroxyzine to 100 mg at bedtime 06/24/2024: Continue medications and treatment plan 06/23/2024: Start vitamin D 5000 units daily Increase paliperidone to 6 mg daily Start lorazepam 1 mg bedtime Discontinue quetiapine Start hydroxyzine 50 mg at bedtime 06/22/2024: -Discontinue olanzapine -Discontinue ativan -Start paliperidone 3mg daily tomorrow AM -Start Seroquel 100mg HS. 06/21/2024: -Increase olanzapine to 10mg HS -Started and titrated ativan to 2mg TID -Requested records from [facility] for possible previous admissions in attempt to get further history and collateral information 06/20/2024: The patient was [facility] to [facility] ([facility] inpatient mental health unit) on q15 min checks (behavioral with suicide precautions) for safety. The patient will participate in group, recreational, and milieu therapies and will be offered additional individual and family sessions as clinically appropriate. -Start olanzapine 5mg HS -Fasting lipid panel and HbA1c tomorrow, Vit D, Vit B12 Inventory Assets Strengths: able to ask for help, willing for outpatient CM Needs: safety and stabilization, medication adjustment, additional coping skills, increased outpatient services Suicide Risk Level Suicide Risk Level: Moderate (q15 min suicide checks) (denies SI but odd presentation, feels safe in the hospital, able to ask nurses when he needs things) Suicide Risk Level Comments: Risk Factors Assessment Male: Yes : No Do You Have Access To A Gun?: No Mental Health Diagnoses: Yes Previous Psychiatric Hospitalization: Yes Hopelessness: No Protective Factors Assessment Employed: No Interval History Identifying Information JOB RIVERA is a 24-year-old man who is currently homeless and drove to the hospital from [place] for unclear reasons with unknown psychiatric and medical history though reported history of prior psychiatric hospitalizations, and was admitted on 06/20/24 00:02 on a 201 voluntary commitment for bizarre behaviors. Chief Complaint "I can't describe them". Review of Systems Sleep Information Total Hours of Sleep: 6.75 Meal Information Percent Meal Consumed - Breakfast: 100 Percent Meal Consumed - Lunch: 100 Percent Meal Consumed - Dinner: 100 Subjective Subjective Patient was seen & assessed and interval progress reviewed with nursing. Out of his room more but doesn't interact much with peers. Watches a lot of TV. Still slow to respond with thought blocking. Has been refusing his fluoxetine. Today he struggles to report his mood but can speak more to symptoms and concerns. he asks for nicotine replacement due to vaping use prior to admission. Allowed brief discussion about his brother and mother. He feels the medication might be helping but "I don't know". He feels he is able to speak more compared to "the state I was in" last week. He reports ongoing hallucinations but notes "I can't really describe them". He reports he's refusing the fluoxetine because "it was painful". He reports that his eyes have been "different" which he attributes to the Invega. He agrees this might be dryness. He also reports some muscle soreness and agrees to try cogentin. Physical Exam Psychiatric Orientation: alert, oriented x 3 and + guarded Apperance: appropriately dressed Eye Contact: + fair eye contact Motor Behavior: no abnormal motor movements Speech: + abnormal rate/rhythm/volume of speech (brief) Affect: + flat affect Mood: + depressed mood and + anxious mood Thought Process: + thought blocking and + concrete thought process Thought Content: + delusions Suicidal Thoughts: denies suicidal thoughts Homicidal Thoughts: denies homicidal thoughts Hallucinations: + auditory hallucinations Insight: + limited insight Judgment: + limited judgement Vital Signs (Past 24 Hours) Last Vital Signs Temp 36.7 C 06/30/24 06:00 Pulse 82 06/30/24 06:00 Resp 16 06/30/24 06:00 BP 89/58 L 06/30/24 06:25 Pulse Ox 99 06/30/24 06:00 O2 Del Method Room Air 06/30/24 06:00 Results & Data ([facility]) Current Inpatient Medications Current Inpatient Medications: Current Inpatient Medications Acetaminophen (Acetaminophen 325 Mg Tab) 650 mg PO Q4H PRN PRN Reason: Headache or Minor Fever Stop: 07/20/24 00:31 Last Admin: 06/26/24 17:20 Dose: 650 mg Al Hydrox/Mg Hydrox/Simethicone (Aluminum/Magnesium Susp 30 Ml Udc) 30 ml PO Q4H PRN PRN Reason: GI Upset Stop: 07/20/24 00:31 Benztropine Mesylate (Benztropine Mesylate 1 Mg Tab) 1 mg PO DAILY PRN PRN Reason: muscle stiffness/acute dystoni Stop: 07/22/24 16:00 Bismuth Subsalicylate (Bismuth Subsalicylate 262 Mg Chew) 2 tab PO Q30M PRN PRN Reason: Loose Stool/Diarrhea Stop: 07/20/24 00:31 Fluoxetine HCl (Fluoxetine Hcl 10 Mg Cap) 10 mg PO QAM RAFI Stop: 07/26/24 11:29 Last Admin: 06/30/24 08:48 Dose: Not Given Hydroxyzine HCl (Hydroxyzine Hcl 25 Mg Tab) 50 mg PO HSZ PRN PRN Reason: Insomnia Stop: 07/20/24 00:31 Last Admin: 06/23/24 01:40 Dose: 50 mg Hydroxyzine HCl (Hydroxyzine Hcl 25 Mg Tab) 25 mg PO Q4H PRN PRN Reason: Anxiety Stop: 07/20/24 00:31 Hydroxyzine HCl (Hydroxyzine Hcl 25 Mg Tab) 100 mg PO HS RAFI Stop: 07/25/24 21:59 Last Admin: 06/29/24 21:36 Dose: 100 mg Lorazepam (Lorazepam 1 Mg Tab) 1 mg PO HS RAFI Stop: 07/23/24 21:59 Last Admin: 06/29/24 21:36 Dose: 1 mg Magnesium Hydroxide (Magnesium Hydroxide Susp 30 Ml Udc) 30 ml PO DAILY PRN PRN Reason: Constipation Stop: 07/20/24 00:31 Olanzapine (Olanzapine 5 Mg Tablet) 5 mg PO BID PRN PRN Reason: Agitation Stop: 07/20/24 08:59 Last Admin: 06/20/24 14:37 Dose: 5 mg Paliperidone (Paliperidone 1.5 Mg Tabcr) 7.5 mg PO DAILY RAFI Stop: 07/28/24 08:59 Last Admin: 06/30/24 08:45 Dose: 7.5 mg Sodium Chloride (Sodium Chloride 0.65% Na Soln 45 Ml ([place])) 1 - 2 sprays NA PRN PRN PRN Reason: Nasal Dryness/Congestion Stop: 07/20/24 00:31 Vitamin D (Cholecalciferol 125 Mcg (5,000 Units) Tab) 125 mcg PO QAM RAFI Stop: 07/23/24 14:29 Last Admin: 06/30/24 08:45 Dose: 125 mcg Mental Health & Subst Abuse Tx Therapist Name of Therapist: None At Home Independent Call Center Agent Name of At Home Independent Call Center Agent: None Post Discharge Appointments Primary Care Physician Name Of Family Doctor/PCP: Does not know
[2024-06-30] MEDS ORDERED: NICOTINE POLACRILEX 2 MG GUM MT PRN (15:26)
[2024-06-30] MEDS: NICOTINE 7 MG/24 HR TDSY TD SCH (16:13)
[2024-06-30] MEDS ORDERED: ARTIFICIAL TEARS OPB PRN (17:16)
[2024-06-30] MEDS: LORazepam 0.5 MG TAB PO SCH (21:24)
[2024-06-30] MEDS: BENZTROPINE MESYLATE 1 MG TAB PO SCH (21:30)
--- NOTE | 2024-07-01 10:44 | Psychiatric Progress Note ---
Date of Service July 01, 2024 Impression / Recommendations Impression JOB RIVERA is a 24-year-old man who is currently homeless and drove to the hospital from [place] for unclear reasons with unknown psychiatric and medical history though reported history of prior psychiatric hospitalizations, and was admitted on 06/20/24 00:02 on a 201 voluntary commitment for bizarre behaviors. A: Ongoing internal preoccupation, thought blocking, and hallucinations with some paranoia but making slow progress, starting to talk a bit more about his life outside of the hospital. No evidence for EPS and eye symptoms improved so will increase paliperidone slightly to 9mg daily which he consents to. MNPR-ongoing psychosis, paranoia Overall, I spent a total of 45 minutes on this case including meeting with the patient, reviewing the chart, nursing report, orders, gathering collateral and documentation. (1) Schizophrenia, paranoid type: (2) Anxiety and depression: (3) Auditory hallucinations: (4) Insomnia: (5) Vitamin D insufficiency: Plan 07/01/2024: -Increase paliperidone to 9mg daily tomorrow 06/30/2024: -Start Cogentin 1mg HS -Continue paliperidone -Discontinue fluoxetine 06/29/24: Continue medications and treatment plan. 06/28/2024: Continue medications and treatment plan 06/27/2024: Increase paliperidone to 7.5 mg every morning 06/26/2024: Start fluoxetine 10 mg daily 06/25/2024: Increase hydroxyzine to 100 mg at bedtime 06/24/2024: Continue medications and treatment plan 06/23/2024: Start vitamin D 5000 units daily Increase paliperidone to 6 mg daily Start lorazepam 1 mg bedtime Discontinue quetiapine Start hydroxyzine 50 mg at bedtime 06/22/2024: -Discontinue olanzapine -Discontinue ativan -Start paliperidone 3mg daily tomorrow AM -Start Seroquel 100mg HS. 06/21/2024: -Increase olanzapine to 10mg HS -Started and titrated ativan to 2mg TID -Requested records from [facility] for possible previous admissions in attempt to get further history and collateral information 06/20/2024: The patient was admitted to the [facility] ([facility] inpatient mental health unit) on q15 min checks (behavioral with suicide precautions) for safety. The patient will participate in group, recreational, and milieu therapies and will be offered additional individual and family sessions as clinically appropriate. -Start olanzapine 5mg HS -Fasting lipid panel and HbA1c tomorrow, Vit D, Vit B12 Inventory Assets Strengths: able to ask for help, willing for outpatient CM Needs: safety and stabilization, medication adjustment, additional coping skills, increased outpatient services Suicide Risk Level Suicide Risk Level: Moderate (q15 min suicide checks) (denies SI but odd presentation, feels safe in the hospital, able to ask nurses when he needs things) Suicide Risk Level Comments: Risk Factors Assessment Male: Yes : No Do You Have Access To A Gun?: No Mental Health Diagnoses: Yes Previous Psychiatric Hospitalization: Yes Hopelessness: No Protective Factors Assessment Employed: No Interval History Identifying Information JOB RIVERA is a 24-year-old man who is currently homeless and drove to the hospital from [place] for unclear reasons with unknown psychiatric and medical history though reported history of prior psychiatric hospitalizations, and was admitted on 06/20/24 00:02 on a 201 voluntary commitment for bizarre behaviors. Chief Complaint "I'm good". Review of Systems Sleep Information Total Hours of Sleep: 5.25 Meal Information Percent Meal Consumed - Breakfast: 100 Percent Meal Consumed - Lunch: 100 Percent Meal Consumed - Dinner: 100 Subjective Subjective Patient was seen & assessed and interval progress reviewed with nursing. Attending groups but doesn't participate. Ongoing delayed responses at times. When encouraged to engage in groups he often reports discomfort answering questions. He reported his mood this morning as "hopeful". Today able to speak more with me in terms of asking questions and shared about his need to make a payment for his car tomorrow to avoid repossession. Still endorses some muscle soreness today but denies any stiffness and denies any issues with his eyes today. He reports some reduction in voices but still struggles to describe them. Remains guarded about his family, states he thinks he'll live with his brother then when asked about their relationship tells me "I don't want to talk about him". Physical Exam Psychiatric Orientation: alert, oriented x 3 and + guarded Apperance: appropriately dressed Eye Contact: + fair eye contact Motor Behavior: no abnormal motor movements Speech: + abnormal rate/rhythm/volume of speech (latent, slow) Affect: + flat affect Mood: + anxious mood Thought Process: + thought blocking and + concrete thought process Thought Content: + paranoid Suicidal Thoughts: denies suicidal thoughts Homicidal Thoughts: denies homicidal thoughts Hallucinations: + auditory hallucinations Insight: + limited insight Judgment: + limited judgement Vital Signs (Past 24 Hours) Last Vital Signs Temp 36.8 C 07/01/24 06:20 Pulse 84 07/01/24 06:20 Resp 16 07/01/24 06:20 BP 107/64 07/01/24 06:21 Pulse Ox 99 07/01/24 06:20 O2 Del Method Room Air 07/01/24 06:20 Results & Data ([facility]) Current Inpatient Medications Current Inpatient Medications: Current Inpatient Medications Acetaminophen (Acetaminophen 325 Mg Tab) 650 mg PO Q4H PRN PRN Reason: Headache or Minor Fever Stop: 07/20/24 00:31 Last Admin: 06/26/24 17:20 Dose: 650 mg Al Hydrox/Mg Hydrox/Simethicone (Aluminum/Magnesium Susp 30 Ml Udc) 30 ml PO Q4H PRN PRN Reason: GI Upset Stop: 07/20/24 00:31 Artificial Tears (Artificial Tears) 1 drops OPB QID PRN PRN Reason: Dryness Stop: 07/30/24 17:15 Benztropine Mesylate (Benztropine Mesylate 1 Mg Tab) 1 mg PO HS RAFI Stop: 07/30/24 21:59 Last Admin: 06/30/24 21:30 Dose: Not Given Bismuth Subsalicylate (Bismuth Subsalicylate 262 Mg Chew) 2 tab PO Q30M PRN PRN Reason: Loose Stool/Diarrhea Stop: 07/20/24 00:31 Hydroxyzine HCl (Hydroxyzine Hcl 25 Mg Tab) 50 mg PO HSZ PRN PRN Reason: Insomnia Stop: 07/20/24 00:31 Last Admin: 06/23/24 01:40 Dose: 50 mg Hydroxyzine HCl (Hydroxyzine Hcl 25 Mg Tab) 25 mg PO Q4H PRN PRN Reason: Anxiety Stop: 07/20/24 00:31 Hydroxyzine HCl (Hydroxyzine Hcl 25 Mg Tab) 100 mg PO HS RAFI Stop: 07/25/24 21:59 Last Admin: 06/30/24 21:31 Dose: 100 mg Lorazepam (Lorazepam 0.5 Mg Tab) 0.5 mg PO HS [facility] Stop: 07/30/24 21:59 Last Admin: 06/30/24 21:24 Dose: 0.5 mg Magnesium Hydroxide (Magnesium Hydroxide Susp 30 Ml Udc) 30 ml PO DAILY PRN PRN Reason: Constipation Stop: 07/20/24 00:31 Miscellaneous (Remove Nicoderm Patch) 1 each N/A DAILY@0859 [facility] Stop: 07/31/24 08:58 Last Admin: 07/01/24 08:39 Dose: Not Given Nicotine (Nicotine 7 Mg/24 Hr Tdsy) 1 patch TD QAM [facility] Stop: 07/30/24 15:29 Last Admin: 07/01/24 08:37 Dose: 1 patch Nicotine Polacrilex (Nicotine Polacrilex 2 Mg Gum) 1 piece MT Q2H PRN PRN Reason: nicotine cravings Stop: 07/30/24 15:25 Olanzapine (Olanzapine 5 Mg Tablet) 5 mg PO BID PRN PRN Reason: Agitation Stop: 07/20/24 08:59 Last Admin: 06/20/24 14:37 Dose: 5 mg Paliperidone (Paliperidone 1.5 Mg Tabcr) 7.5 mg PO DAILY [facility] Stop: 07/28/24 08:59 Last Admin: 07/01/24 08:36 Dose: 7.5 mg Sodium Chloride (Sodium Chloride 0.65% Na Soln 45 Ml ([place])) 1 - 2 sprays NA PRN PRN PRN Reason: Nasal Dryness/Congestion Stop: 07/20/24 00:31 Vitamin D (Cholecalciferol 125 Mcg (5,000 Units) Tab) 125 mcg PO QAM [facility] Stop: 07/23/24 14:29 Last Admin: 07/01/24 08:36 Dose: 125 mcg Mental Health & Subst Abuse Tx Therapist Name of Therapist: None Telecom Field Technician Name of Telecom Field Technician: None Post Discharge Appointments Primary Care Physician Name Of Family Doctor/PCP: Does not know
[2024-07-02] MEDS: PALIPERIDONE 3 MG TABCR PO SCH (08:49)
--- NOTE | 2024-07-02 09:01 | Psychiatric Progress Note ---
Date of Service July 02, 2024 Impression / Recommendations Impression JOB RIVERA is a 24-year-old man who is currently homeless and drove to the hospital from [place] for unclear reasons with unknown psychiatric and medical history though reported history of prior psychiatric hospitalizations, and was admitted on 06/20/24 00:02 on a 201 voluntary commitment for bizarre behaviors. A: Ongoing internal preoccupation, thought blocking, and hallucinations with some paranoia but engaging more in groups and more reality-based. Tolerating initial higher dose of Invega so far. Has been declining Cogentin but no signs of EPS so not felt to be a big concern at this point. MNPR-ongoing psychosis, paranoia Overall, I spent a total of 40 minutes on this case including meeting with the patient, reviewing the chart, nursing report, orders, gathering collateral and documentation. (1) Schizophrenia, paranoid type: (2) Anxiety and depression: (3) Auditory hallucinations: (4) Insomnia: (5) Vitamin D insufficiency: Plan 07/02/2024: Continue current medications and tx plan 07/01/2024: -Increase paliperidone to 9mg daily tomorrow 06/30/2024: -Start Cogentin 1mg HS -Continue paliperidone -Discontinue fluoxetine 06/29/24: Continue medications and treatment plan. 06/28/2024: Continue medications and treatment plan 06/27/2024: Increase paliperidone to 7.5 mg every morning 06/26/2024: Start fluoxetine 10 mg daily 06/25/2024: Increase hydroxyzine to 100 mg at bedtime 06/24/2024: Continue medications and treatment plan 06/23/2024: Start vitamin D 5000 units daily Increase paliperidone to 6 mg daily Start lorazepam 1 mg bedtime Discontinue quetiapine Start hydroxyzine 50 mg at bedtime 06/22/2024: -Discontinue olanzapine -Discontinue ativan -Start paliperidone 3mg daily tomorrow AM -Start Seroquel 100mg HS. 06/21/2024: -Increase olanzapine to 10mg HS -Started and titrated ativan to 2mg TID -Requested records from [facility] for possible previous admissions in attempt to get further history and collateral information 06/20/2024: The patient was admitted to the [facility] (locked inpatient mental health unit) on q15 min checks (behavioral with suicide precautions) for safety. The patient will participate in group, recreational, and milieu therapies and will be offered additional individual and family sessions as clinically appropriate. -Start olanzapine 5mg HS -Fasting lipid panel and HbA1c tomorrow, Vit D, Vit B12 Inventory Assets Strengths: able to ask for help, willing for outpatient CM Needs: safety and stabilization, medication adjustment, additional coping skills, increased outpatient services Suicide Risk Level Suicide Risk Level: Moderate (q15 min suicide checks) (denies SI but odd presentation, feels safe in the hospital, able to ask nurses when he needs things) Suicide Risk Level Comments: Risk Factors Assessment Male: Yes : No Do You Have Access To A Gun?: No Mental Health Diagnoses: Yes Previous Psychiatric Hospitalization: Yes Hopelessness: No Protective Factors Assessment Employed: No Interval History Identifying Information JOB RIVERA is a 24-year-old man who is currently homeless and drove to the hospital from [place] for unclear reasons with unknown psychiatric and medical history though reported history of prior psychiatric hospitalizations, and was admitted on 06/20/24 00:02 on a 201 voluntary commitment for bizarre behaviors. Chief Complaint "I'm doing fine". Review of Systems Sleep Information Total Hours of Sleep: 7.75 Meal Information Percent Meal Consumed - Breakfast: 100 Percent Meal Consumed - Lunch: 100 Percent Meal Consumed - Dinner: 100 Subjective Subjective Patient was seen & assessed and interval progress reviewed with treatment team. Attended some groups and participated a bit. Internally preoccupied at times including giggling to himself. Today reports stable mood. He denies any new medication side effects, tolerating initial higher dose of Invega. Still guarded about internal stimuli, tells me "I'm not sure" when asked about the intensity frequency and content of his voices. States he cannot say whether or not the voices are telling him not to speak with me or other staff. He has been dec lining his HS Cogentin and shared this with me. He's not sure why, we discussed that it was ordered as it might help with his reported muscle stiffness and encouraged to consider trying it tonight and that it could then be stopped if he has side effects or finds it nonbeneficial. Physical Exam Psychiatric Orientation: alert, oriented x 3 and + guarded Apperance: appropriately dressed Eye Contact: + fair eye contact Motor Behavior: no abnormal motor movements; n EPS Speech: + abnormal rate/rhythm/volume of speech (latent, slow) Affect: + flat affect Mood: + anxious mood Thought Process: + thought blocking and + concrete thought process Thought Content: + paranoid Suicidal Thoughts: denies suicidal thoughts Homicidal Thoughts: denies homicidal thoughts Hallucinations: + auditory hallucinations Insight: + limited insight Judgment: + limited judgement Vital Signs (Past 24 Hours) Last Vital Signs Temp 36.8 C 07/02/24 06:25 Pulse 70 07/02/24 06:26 Resp 16 07/02/24 06:25 BP 101/67 07/02/24 06:26 Pulse Ox 99 07/01/24 06:20 O2 Del Method Room Air 07/01/24 06:20 Results & Data ([facility]) Current Inpatient Medications Current Inpatient Medications: Current Inpatient Medications Acetaminophen (Acetaminophen 325 Mg Tab) 650 mg PO Q4H PRN PRN Reason: Headache or Minor Fever Stop: 07/20/24 00:31 Last Admin: 06/26/24 17:20 Dose: 650 mg Al Hydrox/Mg Hydrox/Simethicone (Aluminum/Magnesium Susp 30 Ml Udc) 30 ml PO Q4H PRN PRN Reason: GI Upset Stop: 07/20/24 00:31 Artificial Tears (Artificial Tears) 1 drops OPB QID PRN PRN Reason: Dryness Stop: 07/30/24 17:15 Benztropine Mesylate (Benztropine Mesylate 1 Mg Tab) 1 mg PO HS RAFI Stop: 07/30/24 21:59 Last Admin: 07/01/24 21:32 Dose: Not Given Bismuth Subsalicylate (Bismuth Subsalicylate 262 Mg Chew) 2 tab PO Q30M PRN PRN Reason: Loose Stool/Diarrhea Stop: 07/20/24 00:31 Hydroxyzine HCl (Hydroxyzine Hcl 25 Mg Tab) 50 mg PO HSZ PRN PRN Reason: Insomnia Stop: 07/20/24 00:31 Last Admin: 06/23/24 01:40 Dose: 50 mg Hydroxyzine HCl (Hydroxyzine Hcl 25 Mg Tab) 25 mg PO Q4H PRN PRN Reason: Anxiety Stop: 07/20/24 00:31 Hydroxyzine HCl (Hydroxyzine Hcl 25 Mg Tab) 100 mg PO HS RAFI Stop: 07/25/24 21:59 Last Admin: 07/01/24 21:26 Dose: 100 mg Lorazepam (Lorazepam 0.5 Mg Tab) 0.5 mg PO HS [facility] Stop: 07/30/24 21:59 Last Admin: 07/01/24 21:26 Dose: 0.5 mg Magnesium Hydroxide (Magnesium Hydroxide Susp 30 Ml Udc) 30 ml PO DAILY PRN PRN Reason: Constipation Stop: 07/20/24 00:31 Miscellaneous (Remove Nicoderm Patch) 1 each N/A DAILY@0859 [facility] Stop: 07/31/24 08:58 Last Admin: 07/02/24 08:55 Dose: 1 each Nicotine (Nicotine 7 Mg/24 Hr Tdsy) 1 patch TD QAM [facility] Stop: 07/30/24 15:29 Last Admin: 07/02/24 08:53 Dose: 1 patch Nicotine Polacrilex (Nicotine Polacrilex 2 Mg Gum) 1 piece MT Q2H PRN PRN Reason: nicotine cravings Stop: 07/30/24 15:25 Olanzapine (Olanzapine 5 Mg Tablet) 5 mg PO BID PRN PRN Reason: Agitation Stop: 07/20/24 08:59 Last Admin: 06/20/24 14:37 Dose: 5 mg Paliperidone (Paliperidone 3 Mg Tabcr) 9 mg PO DAILY [facility] Stop: 08/01/24 08:59 Last Admin: 07/02/24 08:49 Dose: 9 mg Sodium Chloride (Sodium Chloride 0.65% Na Soln 45 Ml ([place])) 1 - 2 sprays NA PRN PRN PRN Reason: Nasal Dryness/Congestion Stop: 07/20/24 00:31 Vitamin D (Cholecalciferol 125 Mcg (5,000 Units) Tab) 125 mcg PO QAM [facility] Stop: 07/23/24 14:29 Last Admin: 07/02/24 08:50 Dose: 125 mcg Mental Health & Subst Abuse Tx Therapist Name of Therapist: None Roving Tester Laboratory Name of Roving Tester Laboratory: None Post Discharge Appointments Primary Care Physician Name Of Family Doctor/PCP: Does not know
--- NOTE | 2024-07-03 09:14 | Psychiatric Progress Note ---
Date of Service July 03, 2024 Impression / Recommendations Impression JOB RIVERA is a 24-year-old man who is currently homeless and drove to the hospital from [place] for unclear reasons with unknown psychiatric and medical history though reported history of prior psychiatric hospitalizations, and was admitted on 06/20/24 00:02 on a 201 voluntary commitment for bizarre behaviors. A: Ongoing internal preoccupation, thought blocking, and hallucinations but with some lessening of paranoia. Seems to be tolerating Invega well. Encouraged trial of Cogentin given he continues to report muscle stiffness. MNPR-ongoing psychosis, paranoia Overall, I spent a total of 35 minutes on this case including meeting with the patient, reviewing the chart, nursing report, orders, gathering collateral and documentation. (1) Schizophrenia, paranoid type: (2) Anxiety and depression: (3) Auditory hallucinations: (4) Insomnia: (5) Vitamin D insufficiency: Plan 07/03/2024: Continue current medications and tx plan 07/02/2024: Continue current medications and tx plan 07/01/2024: -Increase paliperidone to 9mg daily tomorrow 06/30/2024: -Start Cogentin 1mg HS -Continue paliperidone -Discontinue fluoxetine 06/29/24: Continue medications and treatment plan. 06/28/2024: Continue medications and treatment plan 06/27/2024: Increase paliperidone to 7.5 mg every morning 06/26/2024: Start fluoxetine 10 mg daily 06/25/2024: Increase hydroxyzine to 100 mg at bedtime 06/24/2024: Continue medications and treatment plan 06/23/2024: Start vitamin D 5000 units daily Increase paliperidone to 6 mg daily Start lorazepam 1 mg bedtime Discontinue quetiapine Start hydroxyzine 50 mg at bedtime 06/22/2024: -Discontinue olanzapine -Discontinue ativan -Start paliperidone 3mg daily tomorrow AM -Start Seroquel 100mg HS. 06/21/2024: -Increase olanzapine to 10mg HS -Started and titrated ativan to 2mg TID -Requested records from [facility] for possible previous admissions in attempt to get further history and collateral information 06/20/2024: The patient was admitted to the [facility] ([facility]) on q15 min checks (behavioral with suicide precautions) for safety. The patient will participate in group, recreational, and milieu therapies and will be offered additional individual and family sessions as clinically appropriate. -Start olanzapine 5mg HS -Fasting lipid panel and HbA1c tomorrow, Vit D, Vit B12 Inventory Assets Strengths: able to ask for help, willing for outpatient CM Needs: safety and stabilization, medication adjustment, additional coping skills, increased outpatient services Suicide Risk Level Suicide Risk Level: Moderate (q15 min suicide checks) (denies SI but odd presentation, feels safe in the hospital, able to ask nurses when he needs things) Suicide Risk Level Comments: Risk Factors Assessment Male: Yes : No Do You Have Access To A Gun?: No Mental Health Diagnoses: Yes Previous Psychiatric Hospitalization: Yes Hopelessness: No Protective Factors Assessment Employed: No Interval History Identifying Information JOB RIVERA is a 24-year-old man who is currently homeless and drove to the hospital from [place] for unclear reasons with unknown psychiatric and medical history though reported history of prior psychiatric hospitalizations, and was admitted on 06/20/24 00:02 on a 201 voluntary commitment for bizarre behaviors. Chief Complaint "I'm doing fine". Review of Systems Sleep Information Total Hours of Sleep: 7.5 Meal Information Percent Meal Consumed - Breakfast: 100 Percent Meal Consumed - Lunch: 100 Percent Meal Consumed - Dinner: 100 Subjective Subjective Patient was seen & assessed and interval progress reviewed with nursing and social work. Went to groups, observed giggling to himself and brightens inappropriately at times as seems to be responding to internal stimuli. Still thought blocking but did talk on the phone. Attending groups. Today reports his mood is stable. Reports stable sleep and appetite. Reports the voices are "sometimes" today. Still declining Cogentin. Reports ongoing muscle soreness but no evidence for EPS, continued to encourage him to take Cogentin. He was willing to speak a bit more about his mother and his work prior to admission. Physical Exam Psychiatric Orientation: alert, oriented x 3 and + guarded (but slightly less) Apperance: appropriately dressed Eye Contact: + fair eye contact Motor Behavior: no abnormal motor movements; n EPS Speech: + abnormal rate/rhythm/volume of speech (soft, slow) Affect: + flat affect Mood: + anxious mood Thought Process: + thought blocking and + concrete thought process Thought Content: + paranoid Suicidal Thoughts: denies suicidal thoughts Homicidal Thoughts: denies homicidal thoughts Hallucinations: + auditory hallucinations Insight: + limited insight Judgment: + limited judgement Vital Signs (Past 24 Hours) Last Vital Signs Temp 36.8 C 07/03/24 06:49 Pulse 93 H 07/03/24 06:49 Resp 16 07/03/24 06:49 BP 118/82 07/03/24 06:49 Pulse Ox 99 07/01/24 06:20 O2 Del Method Room Air 07/01/24 06:20 Results & Data ([facility]) Current Inpatient Medications Current Inpatient Medications: Current Inpatient Medications Acetaminophen (Acetaminophen 325 Mg Tab) 650 mg PO Q4H PRN PRN Reason: Headache or Minor Fever Stop: 07/20/24 00:31 Last Admin: 06/26/24 17:20 Dose: 650 mg Al Hydrox/Mg Hydrox/Simethicone (Aluminum/Magnesium Susp 30 Ml Udc) 30 ml PO Q4H PRN PRN Reason: GI Upset Stop: 07/20/24 00:31 Artificial Tears (Artificial Tears) 1 drops OPB QID PRN PRN Reason: Dryness Stop: 07/30/24 17:15 Benztropine Mesylate (Benztropine Mesylate 1 Mg Tab) 1 mg PO HS RAFI Stop: 07/30/24 21:59 Last Admin: 07/01/24 21:32 Dose: Not Given Bismuth Subsalicylate (Bismuth Subsalicylate 262 Mg Chew) 2 tab PO Q30M PRN PRN Reason: Loose Stool/Diarrhea Stop: 07/20/24 00:31 Hydroxyzine HCl (Hydroxyzine Hcl 25 Mg Tab) 50 mg PO HSZ PRN PRN Reason: Insomnia Stop: 07/20/24 00:31 Last Admin: 06/23/24 01:40 Dose: 50 mg Hydroxyzine HCl (Hydroxyzine Hcl 25 Mg Tab) 25 mg PO Q4H PRN PRN Reason: Anxiety Stop: 07/20/24 00:31 Hydroxyzine HCl (Hydroxyzine Hcl 25 Mg Tab) 100 mg PO HS RAFI Stop: 07/25/24 21:59 Last Admin: 07/02/24 20:39 Dose: 100 mg Lorazepam (Lorazepam 0.5 Mg Tab) 0.5 mg PO HS RAFI Stop: 07/30/24 21:59 Last Admin: 07/02/24 20:39 Dose: 0.5 mg Magnesium Hydroxide (Magnesium Hydroxide Susp 30 Ml Udc) 30 ml PO DAILY PRN PRN Reason: Constipation Stop: 07/20/24 00:31 Miscellaneous (Remove Nicoderm Patch) 1 each N/A DAILY@0859 [facility] Stop: 07/31/24 08:58 Last Admin: 07/03/24 09:06 Dose: 1 each Nicotine (Nicotine 7 Mg/24 Hr Tdsy) 1 patch TD QAM [facility] Stop: 07/30/24 15:29 Last Admin: 07/03/24 09:06 Dose: 1 patch Nicotine Polacrilex (Nicotine Polacrilex 2 Mg Gum) 1 piece MT Q2H PRN PRN Reason: nicotine cravings Stop: 07/30/24 15:25 Olanzapine (Olanzapine 5 Mg Tablet) 5 mg PO BID PRN PRN Reason: Agitation Stop: 07/20/24 08:59 Last Admin: 06/20/24 14:37 Dose: 5 mg Paliperidone (Paliperidone 3 Mg Tabcr) 9 mg PO DAILY [facility] Stop: 08/01/24 08:59 Last Admin: 07/03/24 09:05 Dose: 9 mg Sodium Chloride (Sodium Chloride 0.65% Na Soln 45 Ml ([place])) 1 - 2 sprays NA PRN PRN PRN Reason: Nasal Dryness/Congestion Stop: 07/20/24 00:31 Vitamin D (Cholecalciferol 125 Mcg (5,000 Units) Tab) 125 mcg PO QAM [facility] Stop: 07/23/24 14:29 Last Admin: 07/03/24 09:04 Dose: 125 mcg Mental Health & Subst Abuse Tx Therapist Name of Therapist: None Centrifuge Separator Operator Name of Centrifuge Separator Operator: None Post Discharge Appointments Primary Care Physician Name Of Family Doctor/PCP: Does not know
--- NOTE | 2024-07-04 09:11 | Psychiatric Progress Note ---
Date of Service July 04, 2024 Impression / Recommendations Impression JOB RIVERA is a 24-year-old man who is currently homeless and drove to the hospital from [place] for unclear reasons with unknown psychiatric and medical history though reported history of prior psychiatric hospitalizations, and was admitted on 06/20/24 00:02 on a 201 voluntary commitment for bizarre behaviors. A: Ongoing internal preoccupation but some lessening of thought blocking and paranoia. Cogentin seems to be beneficial for his muscle soreness, will continue with this. Will avoid further Invega titration for now given concerns for potential increased negative symptoms. MNPR-ongoing psychosis, paranoia Overall, I spent a total of 35 minutes on this case including meeting with the patient, reviewing the chart, nursing report, orders, gathering collateral and documentation. (1) Schizophrenia, paranoid type: (2) Anxiety and depression: (3) Auditory hallucinations: (4) Insomnia: (5) Vitamin D insufficiency: Plan 07/04/2024: Continue current medications and tx plan 07/03/2024: Continue current medications and tx plan 07/02/2024: Continue current medications and tx plan 07/01/2024: -Increase paliperidone to 9mg daily tomorrow 06/30/2024: -Start Cogentin 1mg HS -Continue paliperidone -Discontinue fluoxetine 06/29/24: Continue medications and treatment plan. 06/28/2024: Continue medications and treatment plan 06/27/2024: Increase paliperidone to 7.5 mg every morning 06/26/2024: Start fluoxetine 10 mg daily 06/25/2024: Increase hydroxyzine to 100 mg at bedtime 06/24/2024: Continue medications and treatment plan 06/23/2024: Start vitamin D 5000 units daily Increase paliperidone to 6 mg daily Start lorazepam 1 mg bedtime Discontinue quetiapine Start hydroxyzine 50 mg at bedtime 06/22/2024: -Discontinue olanzapine -Discontinue ativan -Start paliperidone 3mg daily tomorrow AM -Start Seroquel 100mg HS. 06/21/2024: -Increase olanzapine to 10mg HS -Started and titrated ativan to 2mg TID -Requested records from [facility] for possible previous admissions in attempt to get further history and collateral information 06/20/2024: The patient was admitted to the [facility]) on q15 min checks (behavioral with suicide precautions) for safety. The patient will participate in group, recreational, and milieu therapies and will be offered additional individual and family sessions as clinically appropriate. -Start olanzapine 5mg HS -Fasting lipid panel and HbA1c tomorrow, Vit D, Vit B12 Inventory Assets Strengths: able to ask for help, willing for outpatient CM Needs: safety and stabilization, medication adjustment, additional coping skills, increased outpatient services Suicide Risk Level Suicide Risk Level: Moderate (q15 min suicide checks) (denies SI but odd presentation, feels safe in the hospital, able to ask nurses when he needs things) Suicide Risk Level Comments: Risk Factors Assessment Male: Yes : No Do You Have Access To A Gun?: No Mental Health Diagnoses: Yes Previous Psychiatric Hospitalization: Yes Hopelessness: No Protective Factors Assessment Employed: No Interval History Identifying Information JOB RIVERA is a 24-year-old man who is currently homeless and drove to the hospital from [place] for unclear reasons with unknown psychiatric and medical history though reported history of prior psychiatric hospitalizations, and was admitted on 06/20/24 00:02 on a 201 voluntary commitment for bizarre behaviors. Chief Complaint "I'm doing fine". Review of Systems Sleep Information Total Hours of Sleep: 7 Meal Information Percent Meal Consumed - Breakfast: 100 Percent Meal Consumed - Lunch: 100 Percent Meal Consumed - Dinner: 100 Subjective Subjective Patient was seen & assessed and interval progress reviewed with treatment team. Attending some groups, reported his mood last evening as "good". Today is seen in the afternoon and is sitting in his room, in the dark, staring at the wall. Denies any medication side effects. He tried the Cogentin last night and today reports no muscle soreness "I can say that today my muscles haven't been hurting". He agrees to continue with his. Physical Exam Psychiatric Orientation: alert, oriented x 3 and + guarded (but slightly less) Apperance: appropriately dressed Eye Contact: + fair eye contact Motor Behavior: no abnormal motor movements; n EPS Speech: + abnormal rate/rhythm/volume of speech (soft, slow) Affect: + flat affect Mood: + anxious mood Thought Process: + thought blocking and + concrete thought process Thought Content: + paranoid Suicidal Thoughts: denies suicidal thoughts Homicidal Thoughts: denies homicidal thoughts Hallucinations: + auditory hallucinations Insight: + limited insight Judgment: + limited judgement Vital Signs (Past 24 Hours) Last Vital Signs Temp 36.7 C 07/04/24 06:00 Pulse 64 07/04/24 06:00 Resp 16 07/04/24 06:00 BP 106/73 07/04/24 06:00 Pulse Ox 99 07/01/24 06:20 O2 Del Method Room Air 07/01/24 06:20 Results & Data ([facility]) Current Inpatient Medications Current Inpatient Medications: Current Inpatient Medications Acetaminophen (Acetaminophen 325 Mg Tab) 650 mg PO Q4H PRN PRN Reason: Headache or Minor Fever Stop: 07/20/24 00:31 Last Admin: 06/26/24 17:20 Dose: 650 mg Al Hydrox/Mg Hydrox/Simethicone (Aluminum/Magnesium Susp 30 Ml Udc) 30 ml PO Q4H PRN PRN Reason: GI Upset Stop: 07/20/24 00:31 Artificial Tears (Artificial Tears) 1 drops OPB QID PRN PRN Reason: Dryness Stop: 07/30/24 17:15 Benztropine Mesylate (Benztropine Mesylate 1 Mg Tab) 1 mg PO HS RAFI Stop: 07/30/24 21:59 Last Admin: 07/03/24 20:39 Dose: 1 mg Bismuth Subsalicylate (Bismuth Subsalicylate 262 Mg Chew) 2 tab PO Q30M PRN PRN Reason: Loose Stool/Diarrhea Stop: 07/20/24 00:31 Hydroxyzine HCl (Hydroxyzine Hcl 25 Mg Tab) 50 mg PO HSZ PRN PRN Reason: Insomnia Stop: 07/20/24 00:31 Last Admin: 06/23/24 01:40 Dose: 50 mg Hydroxyzine HCl (Hydroxyzine Hcl 25 Mg Tab) 25 mg PO Q4H PRN PRN Reason: Anxiety Stop: 07/20/24 00:31 Hydroxyzine HCl (Hydroxyzine Hcl 25 Mg Tab) 100 mg PO HS RAFI Stop: 07/25/24 21:59 Last Admin: 07/03/24 20:39 Dose: 100 mg Lorazepam (Lorazepam 0.5 Mg Tab) 0.5 mg PO HS RAFI Stop: 07/30/24 21:59 Last Admin: 07/03/24 20:39 Dose: 0.5 mg Magnesium Hydroxide (Magnesium Hydroxide Susp 30 Ml Udc) 30 ml PO DAILY PRN PRN Reason: Constipation Stop: 07/20/24 00:31 Miscellaneous (Remove Nicoderm Patch) 1 each N/A DAILY@0859 [facility] Stop: 07/31/24 08:58 Last Admin: 07/04/24 08:56 Dose: 1 each Nicotine (Nicotine 7 Mg/24 Hr Tdsy) [facility] Stop: 07/30/24 15:29 Last Admin: 07/04/24 08:56 Dose: 1 patch Nicotine Polacrilex (Nicotine Polacrilex 2 Mg Gum) 1 piece MT Q2H PRN PRN Reason: nicotine cravings Stop: 07/30/24 15:25 Olanzapine (Olanzapine 5 Mg Tablet) 5 mg PO BID PRN PRN Reason: Agitation Stop: 07/20/24 08:59 Last Admin: 06/20/24 14:37 Dose: 5 mg Paliperidone (Paliperidone 3 Mg Tabcr) 9 mg PO DAILY [facility] Stop: 08/01/24 08:59 Last Admin: 07/04/24 08:55 Dose: 9 mg Sodium Chloride (Sodium Chloride 0.65% Na Soln 45 Ml ([place])) 1 - 2 sprays NA PRN PRN PRN Reason: Nasal Dryness/Congestion Stop: 07/20/24 00:31 Vitamin D (Cholecalciferol 125 Mcg (5,000 Units) Tab) 125 mcg PO QAM [facility] Stop: 07/23/24 14:29 Last Admin: 07/04/24 08:55 Dose: 125 mcg Mental Health & Subst Abuse Tx Therapist Name of Therapist: None Occup Therapist Name of Occup Therapist: None Post Discharge Appointments Primary Care Physician Name Of Family Doctor/PCP: Does not know
--- NOTE | 2024-07-05 09:09 | Psychiatric Progress Note ---
Date of Service July 05, 2024 Impression / Recommendations Impression JOB RIVERA is a 24-year-old man who is currently homeless and drove to the hospital from [place] for unclear reasons with unknown psychiatric and medical history though reported history of prior psychiatric hospitalizations, and was admitted on 06/20/24 00:02 on a 201 voluntary commitment for bizarre behaviors. A: Ongoing internal preoccupation/psychosis but gradual improvement, spending more time around peers but still not engaging much. Discussed medication treatment options in detail. Discussed risks, benefits and alternatives. Patient would like to start and consented to Invega Sustenna HAYES for schizophrenia. Reviewed side effects including but not limited to: reaction site skin changes, movement (TD, NMS), cardiac (QTc prolongation), and metabolic (stroke, insulin resistance) and necessity for fasting lipid and glucose labwork (done when po Invega started) and AIMS done with score of 0. MNPR-ongoing psychosis, paranoia Overall, I spent a total of 35 minutes on this case including meeting with the patient, reviewing the chart, nursing report, orders, gathering collateral and documentation. (1) Schizophrenia, paranoid type: (2) Anxiety and depression: (3) Auditory hallucinations: (4) Insomnia: (5) Vitamin D insufficiency: Plan 07/05/2024: -Invega Sustenna HAYES 234mg today -Discontinue Invega po 07/04/2024: Continue current medications and tx plan 07/03/2024: Continue current medications and tx plan 07/02/2024: Continue current medications and tx plan 07/01/2024: -Increase paliperidone to 9mg daily tomorrow 06/30/2024: -Start Cogentin 1mg HS -Continue paliperidone -Discontinue fluoxetine 06/29/24: Continue medications and treatment plan. 06/28/2024: Continue medications and treatment plan 06/27/2024: Increase paliperidone to 7.5 mg every morning 06/26/2024: Start fluoxetine 10 mg daily 06/25/2024: Increase hydroxyzine to 100 mg at bedtime 06/24/2024: Continue medications and treatment plan 06/23/2024: Start vitamin D 5000 units daily Increase paliperidone to 6 mg daily Start lorazepam 1 mg bedtime Discontinue quetiapine Start hydroxyzine 50 mg at bedtime 06/22/2024: -Discontinue olanzapine -Discontinue ativan -Start paliperidone 3mg daily tomorrow AM -Start Seroquel 100mg HS. 06/21/2024: -Increase olanzapine to 10mg HS -Started and titrated ativan to 2mg TID -Requested records from [facility] for possible previous admissions in attempt to get further history and collateral information 06/20/2024: The patient was admitted to the [facility] ([facility]) on q15 min checks (behavioral with suicide precautions) for safety. The patient will participate in group, recreational, and milieu therapies and will be offered additional individual and family sessions as clinically appropriate. -Start olanzapine 5mg HS -Fasting lipid panel and HbA1c tomorrow, Vit D, Vit B12 Inventory Assets Strengths: able to ask for help, willing for outpatient CM Needs: safety and stabilization, medication adjustment, additional coping skills, increased outpatient services Suicide Risk Level Suicide Risk Level: Moderate (q15 min suicide checks) (denies SI but still with some internal preoccupation, feels safe in the hospital, able to ask nurses when he needs things) Suicide Risk Level Comments: Risk Factors Assessment Male: Yes : No Do You Have Access To A Gun?: No Mental Health Diagnoses: Yes Previous Psychiatric Hospitalization: Yes Hopelessness: No Protective Factors Assessment Employed: No Interval History Identifying Information JOB RIVERA is a 24-year-old man who is currently homeless and drove to the hospital from [place] for unclear reasons with unknown psychiatric and medical history though reported history of prior psychiatric hospitalizations, and was admitted on 06/20/24 00:02 on a 201 voluntary commitment for bizarre behaviors. Chief Complaint "I'm good". Review of Systems Sleep Information Total Hours of Sleep: 7.25 Meal Information Percent Meal Consumed - Breakfast: 100 Percent Meal Consumed - Lunch: 75 Percent Meal Consumed - Dinner: 90 Subjective Subjective Patient was seen & assessed and interval progress reviewed with nursing and social work. Attended group last evening and reported mood as "thankful". Did do a puzzle with peers around. Today he is spending time around peers though not engaging. Reports his mood is "good". Denies any medication side effects. Discussed option for Invega long acting injection and he is agreeable to this. He recalls having this in the past and denies any allergic reactions or dystonic reactions from this. Physical Exam Psychiatric Orientation: alert, oriented x 3 and + guarded (but a little less) Apperance: appropriately dressed Eye Contact: + fair eye contact Motor Behavior: no abnormal motor movements; n EPS Speech: + abnormal rate/rhythm/volume of speech (soft, slow) Affect: + flat affect Mood: no depressed mood and no anxious mood Thought Process: + thought blocking and + concrete thought process Thought Content: + paranoid (only when asked about certain topics-guarded ) and reality based without delusions Suicidal Thoughts: denies suicidal thoughts Homicidal Thoughts: denies homicidal thoughts Hallucinations: + auditory hallucinations (lessening ) Insight: + fair insight Judgment: + limited judgement Vital Signs (Past 24 Hours) Last Vital Signs Temp 36.6 C 07/05/24 06:00 Pulse 79 07/05/24 06:00 Resp 17 07/05/24 06:00 BP 103/71 07/05/24 06:46 Pulse Ox 100 07/05/24 06:00 O2 Del Method Room Air 07/05/24 06:00 Results & Data ([facility]) Current Inpatient Medications Current Inpatient Medications: Current Inpatient Medications Acetaminophen (Acetaminophen 325 Mg Tab) 650 mg PO Q4H PRN PRN Reason: Headache or Minor Fever Stop: 07/20/24 00:31 Last Admin: 06/26/24 17:20 Dose: 650 mg Al Hydrox/Mg Hydrox/Simethicone (Aluminum/Magnesium Susp 30 Ml Udc) 30 ml PO Q4H PRN PRN Reason: GI Upset Stop: 07/20/24 00:31 Artificial Tears (Artificial Tears) 1 drops OPB QID PRN PRN Reason: Dryness Stop: 07/30/24 17:15 Benztropine Mesylate (Benztropine Mesylate 1 Mg Tab) 1 mg PO HS [facility] Stop: 07/30/24 21:59 Last Admin: 07/04/24 20:54 Dose: 1 mg Bismuth Subsalicylate (Bismuth Subsalicylate 262 Mg Chew) 2 tab PO Q30M PRN PRN Reason: Loose Stool/Diarrhea Stop: 07/20/24 00:31 Hydroxyzine HCl (Hydroxyzine Hcl 25 Mg Tab) 50 mg PO HSZ PRN PRN Reason: Insomnia Stop: 07/20/24 00:31 Last Admin: 06/23/24 01:40 Dose: 50 mg Hydroxyzine HCl (Hydroxyzine Hcl 25 Mg Tab) 25 mg PO Q4H PRN PRN Reason: Anxiety Stop: 07/20/24 00:31 Hydroxyzine HCl (Hydroxyzine Hcl 25 Mg Tab) 100 mg PO HS [facility] Stop: 07/25/24 21:59 Last Admin: 07/04/24 20:54 Dose: 100 mg Lorazepam (Lorazepam 0.5 Mg Tab) 0.5 mg PO HS [facility] Stop: 07/30/24 21:59 Last Admin: 07/04/24 20:54 Dose: 0.5 mg Magnesium Hydroxide (Magnesium Hydroxide Susp 30 Ml Udc) 30 ml PO DAILY PRN PRN Reason: Constipation Stop: 07/20/24 00:31 Miscellaneous (Remove Nicoderm Patch) 1 each N/A DAILY@0859 [facility] Stop: 07/31/24 08:58 Last Admin: 07/05/24 08:20 Dose: Not Given Nicotine (Nicotine 7 Mg/24 Hr Tdsy) 1 patch TD [facility] Stop: 07/30/24 15:29 Last Admin: 07/05/24 07:59 Dose: 1 patch Nicotine Polacrilex (Nicotine Polacrilex 2 Mg Gum) 1 piece MT Q2H PRN PRN Reason: nicotine cravings Stop: 07/30/24 15:25 Olanzapine (Olanzapine 5 Mg Tablet) 5 mg PO BID PRN PRN Reason: Agitation Stop: 07/20/24 08:59 Last Admin: 06/20/24 14:37 Dose: 5 mg Paliperidone (Paliperidone 3 Mg Tabcr) 9 mg PO DAILY [facility] Stop: 08/01/24 08:59 Last Admin: 07/05/24 07:59 Dose: 9 mg Sodium Chloride (Sodium Chloride 0.65% Na Soln 45 Ml ([place])) 1 - 2 sprays NA PRN PRN PRN Reason: Nasal Dryness/Congestion Stop: 07/20/24 00:31 Vitamin D (Cholecalciferol 125 Mcg (5,000 Units) Tab) 125 mcg PO QAM [facility] Stop: 07/23/24 14:29 Last Admin: 07/05/24 07:59 Dose: 125 mcg Mental Health & Subst Abuse Tx Therapist Name of Therapist: None Die Try Out Worker Name of Die Try Out Worker: None Post Discharge Appointments Primary Care Physician Name Of Family Doctor/PCP: Does not know
[2024-07-05] MEDS: PALIPERIDONE PALMITATE 234 MG/1.5 ML SYR IM ONE (15:21)
[2024-07-06] MEDS: CEROVITE ADV FORMULA TAB PO SCH (08:30)
--- NOTE | 2024-07-06 09:29 | Psychiatric Progress Note ---
Date of Service July 06, 2024 Impression / Recommendations Impression JOB RIVERA is a 24-year-old man who is currently homeless and drove to the hospital from [place] for unclear reasons with unknown psychiatric and medical history though reported history of prior psychiatric hospitalizations, and was admitted on 06/20/24 00:02 on a 201 voluntary commitment for bizarre behaviors. A: Still guarded but spending more time around peers, less paranoia except about specific topics and participating more in groups. Tolerating initial dose of HAYES, can get the second dose on 07/08/2024. Will trial discontinuation of ativan and Vistaril at HS given improvement and stable sleep and consistent use of cogentin in recent days. MNPR-ongoing paranoia Overall, I spent a total of 30 minutes on this case including meeting with the patient, reviewing the chart, nursing report, orders, gathering collateral and documentation. (1) Schizophrenia, paranoid type: (2) Anxiety and depression: (3) Auditory hallucinations: (4) Insomnia: (5) Vitamin D insufficiency: Plan 07/06/2024: -Discontinue ativan 0.5mg HS -Discontinue scheduled HS Vistaril given now consistent use of Cogentin 07/05/2024: -Invega Sustenna HAYES 234mg today -Discontinue Invega po 07/04/2024: Continue current medications and tx plan 07/03/2024: Continue current medications and tx plan 07/02/2024: Continue current medications and tx plan 07/01/2024: -Increase paliperidone to 9mg daily tomorrow 06/30/2024: -Start Cogentin 1mg HS -Continue paliperidone -Discontinue fluoxetine 06/29/24: Continue medications and treatment plan. 06/28/2024: Continue medications and treatment plan 06/27/2024: Increase paliperidone to 7.5 mg every morning 06/26/2024: Start fluoxetine 10 mg daily 06/25/2024: Increase hydroxyzine to 100 mg at bedtime 06/24/2024: Continue medications and treatment plan 06/23/2024: Start vitamin D 5000 units daily Increase paliperidone to 6 mg daily Start lorazepam 1 mg bedtime Discontinue quetiapine Start hydroxyzine 50 mg at bedtime 06/22/2024: -Discontinue olanzapine -Discontinue ativan -Start paliperidone 3mg daily tomorrow AM -Start Seroquel 100mg HS. 06/21/2024: -Increase olanzapine to 10mg HS -Started and titrated ativan to 2mg TID -Requested records from [facility] for possible previous admissions in attempt to get further history and collateral information 06/20/2024: The patient was admitted to the [facility] ([facility]) on q15 min checks (behavioral with suicide precautions) for safety. The patient will participate in group, recreational, and milieu therapies and will be offered additional individual and family sessions as clinically appropriate. -Start olanzapine 5mg HS -Fasting lipid panel and HbA1c tomorrow, Vit D, Vit B12 Inventory Assets Strengths: able to ask for help, willing for outpatient CM Needs: safety and stabilization, medication adjustment, additional coping skills, increased outpatient services Suicide Risk Level Suicide Risk Level: Moderate (q15 min suicide checks) (denies SI but still with some internal preoccupation, feels safe in the hospital, able to ask nurses when he needs things) Suicide Risk Level Comments: Risk Factors Assessment Male: Yes : No Do You Have Access To A Gun?: No Mental Health Diagnoses: Yes Previous Psychiatric Hospitalization: Yes Hopelessness: No Protective Factors Assessment Employed: No Interval History Identifying Information JOB RIVERA is a 24-year-old man who is currently homeless and drove to the hospital from [place] for unclear reasons with unknown psychiatric and medical history though reported history of prior psychiatric hospitalizations, and was admitted on 06/20/24 00:02 on a 201 voluntary commitment for bizarre behaviors. Chief Complaint "I'm good". Review of Systems Sleep Information Total Hours of Sleep: 8 Meal Information Percent Meal Consumed - Breakfast: 100 Percent Meal Consumed - Lunch: 100 Percent Meal Consumed - Dinner: 100 Subjective Subjective Patient was seen & assessed and interval progress reviewed with treatment team. Attending groups and rated his mood as "happy". Today reports positive mood. Denies any side effects from the Invega HAYES. He is agreeable to stopping ativan at bedtime as he's been sleeping well and denies any anxiety. Physical Exam Psychiatric Orientation: alert, oriented x 3 and + guarded (but lessening) Apperance: appropriately dressed Eye Contact: + fair eye contact Motor Behavior: no abnormal motor movements; n EPS Speech: normal rate/rhythm/volume of speech (brief latency) Affect: + blunted affect Mood: no depressed mood and no anxious mood Thought Process: + concrete thought process (not expansive but responds to questions except about more personal topics) Thought Content: + paranoid (only when asked about certain topics-guarded ) and reality based without delusions Suicidal Thoughts: denies suicidal thoughts Homicidal Thoughts: denies homicidal thoughts Hallucinations: + auditory hallucinations (lessening ) Insight: + fair insight Judgment: + fair judgement Vital Signs (Past 24 Hours) Last Vital Signs Temp 36.8 C 07/06/24 06:00 Pulse 77 07/06/24 06:00 Resp 16 07/06/24 06:00 BP 110/66 07/06/24 06:45 Pulse Ox 100 07/05/24 06:00 O2 Del Method Room Air 07/05/24 06:00 Results & Data ([facility]) Current Inpatient Medications Current Inpatient Medications: Current Inpatient Medications Acetaminophen (Acetaminophen 325 Mg Tab) 650 mg PO Q4H PRN PRN Reason: Headache or Minor Fever Stop: 07/20/24 00:31 Last Admin: 06/26/24 17:20 Dose: 650 mg Al Hydrox/Mg Hydrox/Simethicone (Aluminum/Magnesium Susp 30 Ml Udc) 30 ml PO Q4H PRN PRN Reason: GI Upset Stop: 07/20/24 00:31 Artificial Tears (Artificial Tears) 1 drops OPB QID PRN PRN Reason: Dryness Stop: 07/30/24 17:15 Benztropine Mesylate (Benztropine Mesylate 1 Mg Tab) 1 mg PO HS [facility] Stop: 07/30/24 21:59 Last Admin: 07/05/24 21:41 Dose: 1 mg Bismuth Subsalicylate (Bismuth Subsalicylate 262 Mg Chew) 2 tab PO Q30M PRN PRN Reason: Loose Stool/Diarrhea Stop: 07/20/24 00:31 Hydroxyzine HCl (Hydroxyzine Hcl 25 Mg Tab) 50 mg PO HSZ PRN PRN Reason: Insomnia Stop: 07/20/24 00:31 Last Admin: 06/23/24 01:40 Dose: 50 mg Hydroxyzine HCl (Hydroxyzine Hcl 25 Mg Tab) 25 mg PO Q4H PRN PRN Reason: Anxiety Stop: 07/20/24 00:31 Hydroxyzine HCl (Hydroxyzine Hcl 25 Mg Tab) 100 mg PO [facility] Stop: 07/25/24 21:59 Last Admin: 07/05/24 21:41 Dose: 100 mg Lorazepam (Lorazepam 0.5 Mg Tab) 0.5 mg PO HS [facility] Stop: 07/30/24 21:59 Last Admin: 07/05/24 21:41 Dose: 0.5 mg Magnesium Hydroxide (Magnesium Hydroxide Susp 30 Ml Udc) 30 ml PO DAILY PRN PRN Reason: Constipation Stop: 07/20/24 00:31 Miscellaneous (Remove Nicoderm Patch) 1 each N/A DAILY@0859 [facility] Stop: 07/31/24 08:58 Last Admin: 07/06/24 08:33 Dose: Not Given Multivitamins/Minerals (Cerovite Adv Formula Tab) [facility] Stop: 08/05/24 08:59 Last Admin: 07/06/24 08:30 Dose: 1 tab Nicotine (Nicotine 7 Mg/24 Hr Tdsy) 1 patch TD [facility] Stop: 07/30/24 15:29 Last Admin: 07/06/24 08:32 Dose: 1 patch Nicotine Polacrilex (Nicotine Polacrilex 2 Mg Gum) 1 piece MT Q2H PRN PRN Reason: nicotine cravings Stop: 07/30/24 15:25 Olanzapine (Olanzapine 5 Mg Tablet) 5 mg PO BID PRN PRN Reason: Agitation Stop: 07/20/24 08:59 Last Admin: 06/20/24 14:37 Dose: 5 mg Sodium Chloride (Sodium Chloride 0.65% Na Soln 45 Ml ([place])) 1 - 2 sprays NA PRN PRN PRN Reason: Nasal Dryness/Congestion Stop: 07/20/24 00:31 Vitamin D (Cholecalciferol 125 Mcg (5,000 Units) Tab) 125 mcg PO QAM [facility] Stop: 07/23/24 14:29 Last Admin: 07/06/24 08:30 Dose: 125 mcg Mental Health & Subst Abuse Tx Therapist Name of Therapist: None Video Editor Name of Video Editor: None Post Discharge Appointments Primary Care Physician Name Of Family Doctor/PCP: Does not know
--- NOTE | 2024-07-07 16:37 | Psychiatric Progress Note ---
Date of Service July 07, 2024 Impression / Recommendations Impression JOB RIVERA is a 24-year-old man h/o Schizophrenia, multiple past psychiatric hospitalizations who is currently homeless and drove to the hospital from [place], and was admitted on 06/20/24 00:02 on a 201 voluntary commitment for bizarre behaviors. A: Patient continues to present negative symptoms schizophrenia however is more forthcoming and appears less distracted by auditory hallucinations. Reports residual auditory hallucinations. Tolerating Invega Sustenna well and we will plan for follow-up second loading dose on 07/09/2024 of 156 mg. No current EPS identified and will discontinue Cogentin MNPR-ongoing paranoia Overall, I spent a total of 35 minutes on this case including meeting with the patient, reviewing the chart, nursing report, orders, gathering collateral and documentation. (1) Schizophrenia, paranoid type: (2) Anxiety and depression: (3) Auditory hallucinations: (4) Insomnia: (5) Vitamin D insufficiency: Plan 07/07/2024: Discontinue Cogentin 07/06/2024: -Discontinue ativan 0.5mg HS -Discontinue scheduled HS Vistaril given now consistent use of Cogentin 07/05/2024: -Invega Sustenna HAYES 234mg today -Discontinue Invega po 07/04/2024: Continue current medications and tx plan 07/03/2024: Continue current medications and tx plan 07/02/2024: Continue current medications and tx plan 07/01/2024: -Increase paliperidone to 9mg daily tomorrow 06/30/2024: -Start Cogentin 1mg HS -Continue paliperidone -Discontinue fluoxetine 06/29/24: Continue medications and treatment plan. 06/28/2024: Continue medications and treatment plan 06/27/2024: Increase paliperidone to 7.5 mg every morning 06/26/2024: Start fluoxetine 10 mg daily 06/25/2024: Increase hydroxyzine to 100 mg at bedtime 06/24/2024: Continue medications and treatment plan 06/23/2024: Start vitamin D 5000 units daily Increase paliperidone to 6 mg daily Start lorazepam 1 mg bedtime Discontinue quetiapine Start hydroxyzine 50 mg at bedtime 06/22/2024: -Discontinue olanzapine -Discontinue ativan -Start paliperidone 3mg daily tomorrow AM -Start Seroquel 100mg HS. 06/21/2024: -Increase olanzapine to 10mg HS -Started and titrated ativan to 2mg TID -Requested records from [facility] for possible previous admissions in attempt to get further history and collateral information 06/20/2024: The patient was admitted to the [facility] ([facility] unit) on q15 min checks (behavioral with suicide precautions) for safety. The patient will participate in group, recreational, and milieu therapies and will be offered additional individual and family sessions as clinically appropriate. -Start olanzapine 5mg HS -Fasting lipid panel and HbA1c tomorrow, Vit D, Vit B12 Inventory Assets Strengths: able to ask for help, willing for outpatient CM Needs: safety and stabilization, medication adjustment, additional coping skills, increased outpatient services Suicide Risk Level Suicide Risk Level: Moderate (q15 min suicide checks) (denies SI but still with some internal preoccupation, feels safe in the hospital, able to ask nurses when he needs things) Suicide Risk Level Comments: Risk Factors Assessment Male: Yes : No Do You Have Access To A Gun?: No Mental Health Diagnoses: Yes Previous Psychiatric Hospitalization: Yes Hopelessness: No Protective Factors Assessment Employed: No Interval History Identifying Information JOB RIVERA is a 24-year-old man h/o Schizophrenia, multiple past psychiatric hospitalizations who is currently homeless and drove to the hospital from [place], and was admitted on 06/20/24 00:02 on a 201 voluntary commitment for bizarre behaviors. Chief Complaint Psychosis Review of Systems Sleep Information Total Hours of Sleep: 7 Meal Information Percent Meal Consumed - Breakfast: 100 Percent Meal Consumed - Lunch: 100 Percent Meal Consumed - Dinner: 100 Subjective Subjective Patient was seen & assessed and interval progress reviewed with treatment team nursing and social work Patient reports his thoughts have been "more positive". Reports sleeping well. Rates voices 5 out of 10 and appears less distracted by them. Denies any muscle stiffness. Patient asking about support meeting on Tuesday. Denies SI and HI. Physical Exam Mental Examination Appearance: Unkempt Eye Contact: Fleeting Contact Motor Behavior: Slowed Speech: Soft, Delayed and Poverty of Speech Mood: Depressed and Calm Affect: Apprehensive, Blunted, Constricted, Dulled, Flat and Withdrawn Thought Process: [place], Poverty of Content and Slowed Thinking Thought Content: Poverty of Content Hallucinations: Auditory Insight: Poor Judgement: Poor Vital Signs (Past 24 Hours) Last Vital Signs Temp 36.9 C 07/07/24 06:21 Pulse 71 07/07/24 06:22 Resp 16 07/07/24 06:21 BP 97/61 L 07/07/24 06:22 Pulse Ox 100 07/05/24 06:00 O2 Del Method Room Air 07/05/24 06:00 Results & Data ([facility]) Current Inpatient Medications Current Inpatient Medications: Current Inpatient Medications Acetaminophen (Acetaminophen 325 Mg Tab) 650 mg PO Q4H PRN PRN Reason: Headache or Minor Fever Stop: 07/20/24 00:31 Last Admin: 07/06/24 17:39 Dose: 650 mg Al Hydrox/Mg Hydrox/Simethicone (Aluminum/Magnesium Susp 30 Ml Udc) 30 ml PO Q4H PRN PRN Reason: GI Upset Stop: 07/20/24 00:31 Artificial Tears (Artificial Tears) 1 drops OPB QID PRN PRN Reason: Dryness Stop: 07/30/24 17:15 Bismuth Subsalicylate (Bismuth Subsalicylate 262 Mg Chew) 2 tab PO Q30M PRN PRN Reason: Loose Stool/Diarrhea Stop: 07/20/24 00:31 Hydroxyzine HCl (Hydroxyzine Hcl 25 Mg Tab) 50 mg PO HSZ PRN PRN Reason: Insomnia Stop: 07/20/24 00:31 Last Admin: 06/23/24 01:40 Dose: 50 mg Hydroxyzine HCl (Hydroxyzine Hcl 25 Mg Tab) 25 mg PO Q4H PRN PRN Reason: Anxiety Stop: 07/20/24 00:31 Magnesium Hydroxide (Magnesium Hydroxide Susp 30 Ml Udc) 30 ml PO DAILY PRN PRN Reason: Constipation Stop: 07/20/24 00:31 Miscellaneous (Remove Nicoderm Patch) 1 each N/A DAILY@0859 [facility] Stop: 07/31/24 08:58 Last Admin: 07/07/24 07:50 Dose: Not Given Multivitamins/Minerals (Cerovite Adv Formula Tab) 1 tab PO QAM [facility] Stop: 08/05/24 08:59 Last Admin: 07/07/24 07:49 Dose: 1 tab Nicotine (Nicotine 7 Mg/24 Hr Tdsy) 1 patch TD QAM [facility] Stop: 07/30/24 15:29 Last Admin: 07/07/24 07:49 Dose: 1 patch Nicotine Polacrilex (Nicotine Polacrilex 2 Mg Gum) 1 piece MT Q2H PRN PRN Reason: nicotine cravings Stop: 07/30/24 15:25 Olanzapine (Olanzapine 5 Mg Tablet) 5 mg PO BID PRN PRN Reason: Agitation Stop: 07/20/24 08:59 Last Admin: 06/20/24 14:37 Dose: 5 mg Sodium Chloride (Sodium Chloride 0.65% Na Soln 45 Ml ([place])) 1 - 2 sprays NA PRN PRN PRN Reason: Nasal Dryness/Congestion Stop: 07/20/24 00:31 Vitamin D (Cholecalciferol 125 Mcg (5,000 Units) Tab) 125 mcg PO QAM [facility] Stop: 07/23/24 14:29 Last Admin: 07/07/24 07:49 Dose: 125 mcg Mental Health & Subst Abuse Tx Therapist Name of Therapist: None Financial Controller Name of Financial Controller: None Post Discharge Appointments Primary Care Physician Name Of Family Doctor/PCP: Does not know
[2024-07-08] MEDS: POLYETHYLENE (MIRALAX) 17 GM PACK PO ONE (15:06)
--- NOTE | 2024-07-08 15:12 | Psychiatric Progress Note ---
Date of Service July 08, 2024 Impression / Recommendations Impression JOB RIVERA is a 24-year-old man h/o Schizophrenia, multiple past psychiatric hospitalizations who is currently homeless and drove to the hospital from [place], and was admitted on 06/20/24 00:02 on a 201 voluntary commitment for bizarre behaviors. A: Patient has presented less paranoia, more spontaneous speech, more appropriate behaviors. Continues to present signs of auditory hallucinations including distractibility and inappropriate laughter. Concern for constipation and will adjust bowel regimen. MNPR-ongoing paranoia Overall, I spent a total of 35 minutes on this case including meeting with the patient, reviewing the chart, nursing report, orders, gathering collateral and documentation. (1) Schizophrenia, paranoid type: (2) Anxiety and depression: (3) Auditory hallucinations: (4) Insomnia: (5) Vitamin D insufficiency: Plan 07/08/2024: MiraLAX 17 g once. Start daily fiber supplement. 07/07/2024: Discontinue Cogentin 07/06/2024: -Discontinue ativan 0.5mg HS -Discontinue scheduled HS Vistaril given now consistent use of Cogentin 07/05/2024: -Invega Sustenna HAYES 234mg today -Discontinue Invega po 07/04/2024: Continue current medications and tx plan 07/03/2024: Continue current medications and tx plan 07/02/2024: Continue current medications and tx plan 07/01/2024: -Increase paliperidone to 9mg daily tomorrow 06/30/2024: -Start Cogentin 1mg HS -Continue paliperidone -Discontinue fluoxetine 06/29/24: Continue medications and treatment plan. 06/28/2024: Continue medications and treatment plan 06/27/2024: Increase paliperidone to 7.5 mg every morning 06/26/2024: Start fluoxetine 10 mg daily 06/25/2024: Increase hydroxyzine to 100 mg at bedtime 06/24/2024: Continue medications and treatment plan 06/23/2024: Start vitamin D 5000 units daily Increase paliperidone to 6 mg daily Start lorazepam 1 mg bedtime Discontinue quetiapine Start hydroxyzine 50 mg at bedtime 06/22/2024: -Discontinue olanzapine -Discontinue ativan -Start paliperidone 3mg daily tomorrow AM -Start Seroquel 100mg HS. 06/21/2024: -Increase olanzapine to 10mg HS -Started and titrated ativan to 2mg TID -Requested records from [facility] for possible previous admissions in attempt to get further history and collateral information 06/20/2024: The patient was admitted to the [facility] ([facility] health unit) on q15 min checks (behavioral with suicide precautions) for safety. The patient will participate in group, recreational, and milieu therapies and will be offered additional individual and family sessions as clinically appropriate. -Start olanzapine 5mg HS -Fasting lipid panel and HbA1c tomorrow, Vit D, Vit B12 Inventory Assets Strengths: able to ask for help, willing for outpatient CM Needs: safety and stabilization, medication adjustment, additional coping skills, increased outpatient services Suicide Risk Level Suicide Risk Level: Moderate (q15 min suicide checks) (denies SI but still with some internal preoccupation, feels safe in the hospital, able to ask nurses when he needs things) Suicide Risk Level Comments: Risk Factors Assessment Male: Yes : No Do You Have Access To A Gun?: No Mental Health Diagnoses: Yes Previous Psychiatric Hospitalization: Yes Hopelessness: No Protective Factors Assessment Employed: No Interval History Identifying Information JOB RIVERA is a 24-year-old man h/o Schizophrenia, multiple past psychiatric hospitalizations who is currently homeless and drove to the hospital from [place], and was admitted on 06/20/24 00:02 on a 201 voluntary commitment for bizarre behaviors. Chief Complaint Psychosis Review of Systems Sleep Information Total Hours of Sleep: 7.25 Meal Information Percent Meal Consumed - Breakfast: 100 Percent Meal Consumed - Lunch: 100 Percent Meal Consumed - Dinner: 100 Subjective Subjective Patient was seen & assessed and interval progress reviewed with treatment team nursing and social work Patient attending all groups. Has been interactive with staff and peers. No bowel movement for the last 2 days. On interview patient reports feeling "fine". When asked about voices he looks away and then back at me and says that he does not have a way to describe the voices. He reports they are less bothersome than on admission. He is more forthcoming about his presentation to the hospital and says that he was living with his brother however has an unclear memory of how he arrived to the hospital. Says that he drove here and that his car is in the parking lot; a 2015 Chevy Equinox that is dark blue. He reports he is able to go back to his brother however does not want to involve him in the family meeting. Denies any muscle stiffness or rigidity. When he was asked about his car he presented multiple episodes of inappropriate laughter that was not appropriate given the conversation we had. Physical Exam Mental Examination Appearance: Unkempt Eye Contact: Fleeting Contact Motor Behavior: Slowed Speech: Soft, Delayed and Poverty of Speech Mood: Depressed and Calm Affect: Apprehensive, Blunted, Constricted, Dulled, Flat and Withdrawn Thought Process: [place], Poverty of Content and Slowed Thinking Thought Content: Poverty of Content Hallucinations: Auditory Insight: Poor Judgement: Poor Vital Signs (Past 24 Hours) Last Vital Signs Temp 36.6 C 07/08/24 06:35 Pulse 56 L 07/08/24 06:36 Resp 16 07/08/24 06:35 BP 105/66 07/08/24 06:36 Pulse Ox 100 07/05/24 06:00 O2 Del Method Room Air 07/05/24 06:00 Results & Data ([facility]) Current Inpatient Medications Current Inpatient Medications: Current Inpatient Medications Acetaminophen (Acetaminophen 325 Mg Tab) 650 mg PO Q4H PRN PRN Reason: Headache or Minor Fever Stop: 07/20/24 00:31 Last Admin: 07/07/24 18:10 Dose: 650 mg Al Hydrox/Mg Hydrox/Simethicone (Aluminum/Magnesium Susp 30 Ml Udc) 30 ml PO Q4H PRN PRN Reason: GI Upset Stop: 07/20/24 00:31 Artificial Tears (Artificial Tears) 1 drops OPB QID PRN PRN Reason: Dryness Stop: 07/30/24 17:15 Bismuth Subsalicylate (Bismuth Subsalicylate 262 Mg Chew) 2 tab PO Q30M PRN PRN Reason: Loose Stool/Diarrhea Stop: 07/20/24 00:31 Hydroxyzine HCl (Hydroxyzine Hcl 25 Mg Tab) 50 mg PO HSZ PRN PRN Reason: Insomnia Stop: 07/20/24 00:31 Last Admin: 06/23/24 01:40 Dose: 50 mg Hydroxyzine HCl (Hydroxyzine Hcl 25 Mg Tab) 25 mg PO Q4H PRN PRN Reason: Anxiety Stop: 07/20/24 00:31 Magnesium Hydroxide (Magnesium Hydroxide Susp 30 Ml Udc) 30 ml PO DAILY PRN PRN Reason: Constipation Stop: 07/20/24 00:31 Miscellaneous (Remove Nicoderm Patch) 1 each N/A DAILY@0859 [facility] Stop: 07/31/24 08:58 Last Admin: 07/08/24 08:04 Dose: Not Given Multivitamins/Minerals (Cerovite Adv Formula Tab) [facility] [place]: 08/05/24 08:59 Last Admin: 07/08/24 08:04 Dose: 1 tab Nicotine (Nicotine 7 Mg/24 Hr Tdsy) 1 patch TD QAM [facility] Stop: 07/30/24 15:29 Last Admin: 07/08/24 08:11 Dose: 1 patch Nicotine Polacrilex (Nicotine Polacrilex 2 Mg Gum) 1 piece MT Q2H PRN PRN Reason: nicotine cravings Stop: 07/30/24 15:25 Olanzapine (Olanzapine 5 Mg Tablet) 5 mg PO BID PRN PRN Reason: Agitation Stop: 07/20/24 08:59 Last Admin: 06/20/24 14:37 Dose: 5 mg Psyllium Hydrophilic Mucilloid (Psyllium Or Guar Gum Fiber 4gm Packet) 4 gm PO [facility] Stop: 08/08/24 08:59 Sodium Chloride (Sodium Chloride 0.65% Na Soln 45 Ml ([place])) 1 - 2 sprays NA PRN PRN PRN Reason: Nasal Dryness/Congestion Stop: 07/20/24 00:31 Vitamin D (Cholecalciferol 125 Mcg (5,000 Units) Tab) 125 mcg PO QAM [facility] Stop: 07/23/24 14:29 Last Admin: 07/08/24 08:04 Dose: 125 mcg Mental Health & Subst Abuse Tx Therapist Name of Therapist: None Curing Bin Operator Name of Curing Bin Operator: None Post Discharge Appointments Primary Care Physician Name Of Family Doctor/PCP: Does not know
[2024-07-09] MEDS: PSYLLIUM or GUAR GUM FIBER 4GM PACKET PO SCH (08:12)
[2024-07-09] MEDS: PALIPERIDONE PALMITATE 156 MG/ML SYR IM SCH (12:16)
--- NOTE | 2024-07-09 13:01 | Psychiatric Progress Note ---
Date of Service July 09, 2024 Impression / Recommendations Impression JOB RIVERA is a 24-year-old man h/o Schizophrenia, multiple past psychiatric hospitalizations who is currently homeless and drove to the hospital from [place], and was admitted on 06/20/24 00:02 on a 201 voluntary commitment for bizarre behaviors. A: Patient presents some improvement in psychosis with residual auditory hallucinations. Continues to present a blunted affect with limited spontaneous speech. At times is paranoid and is unwilling to share details about his life and relationships. Patient to receive his second loading dose of Invega Sustenna 156 mg today. No recent bowel movement and we will provide laxative. No EPS on exam. MNPR-ongoing paranoia Overall, I spent a total of 40 minutes on this case including meeting with the patient, reviewing the chart, nursing report, orders, gathering collateral and documentation. (1) Schizophrenia, paranoid type: (2) Anxiety and depression: (3) Auditory hallucinations: (4) Insomnia: (5) Vitamin D insufficiency: Plan 07/09/2024: Invega Sustenna 156 mg IM today Senokot-S one time 07/08/2024: MiraLAX 17 g once. Start daily fiber supplement. 07/07/2024: Discontinue Cogentin 07/06/2024: -Discontinue ativan 0.5mg HS -Discontinue scheduled HS Vistaril given now consistent use of Cogentin 07/05/2024: -Invega Sustenna HAYES 234mg today -Discontinue Invega po 07/04/2024: Continue current medications and tx plan 07/03/2024: Continue current medications and tx plan 07/02/2024: Continue current medications and tx plan 07/01/2024: -Increase paliperidone to 9mg daily tomorrow 06/30/2024: -Start Cogentin 1mg HS -Continue paliperidone -Discontinue fluoxetine 06/29/24: Continue medications and treatment plan. 06/28/2024: Continue medications and treatment plan 06/27/2024: Increase paliperidone to 7.5 mg every morning 06/26/2024: Start fluoxetine 10 mg daily 06/25/2024: Increase hydroxyzine to 100 mg at bedtime 06/24/2024: Continue medications and treatment plan 06/23/2024: Start vitamin D 5000 units daily Increase paliperidone to 6 mg daily Start lorazepam 1 mg bedtime Discontinue quetiapine Start hydroxyzine 50 mg at bedtime 06/22/2024: -Discontinue olanzapine -Discontinue ativan -Start paliperidone 3mg daily tomorrow AM -Start Seroquel 100mg HS. 06/21/2024: -Increase olanzapine to 10mg HS -Started and titrated ativan to 2mg TID -Requested records from [facility] for possible previous admissions in attempt to get further history and collateral information 06/20/2024: The patient was admitted to the [facility] ([facility]) on q15 min checks (behavioral with suicide precautions) for safety. The patient will participate in group, recreational, and milieu therapies and will be offered additional individual and family sessions as clinically appropriate. -Start olanzapine 5mg HS -Fasting lipid panel and HbA1c tomorrow, Vit D, Vit B12 Inventory Assets Strengths: able to ask for help, willing for outpatient CM Needs: safety and stabilization, medication adjustment, additional coping skills, increased outpatient services Suicide Risk Level Suicide Risk Level: Moderate (q15 min suicide checks) (denies SI but still with some internal preoccupation, feels safe in the hospital, able to ask nurses when he needs things) Suicide Risk Level Comments: Risk Factors Assessment Male: Yes : No Do You Have Access To A Gun?: No Mental Health Diagnoses: Yes Previous Psychiatric Hospitalization: Yes Hopelessness: No Protective Factors Assessment Employed: No Interval History Identifying Information JOB RIVERA is a 24-year-old man h/o Schizophrenia, multiple past psychiatric hospitalizations who is currently homeless and drove to the hospital from [place], and was admitted on 06/20/24 00:02 on a 201 voluntary commitment for bizarre behaviors. Chief Complaint Psychosis Review of Systems Sleep Information Total Hours of Sleep: 7.75 Meal Information Percent Meal Consumed - Breakfast: 100 Percent Meal Consumed - Lunch: 100 Percent Meal Consumed - Dinner: 100 Subjective Subjective Patient was seen & assessed and interval progress reviewed with treatment team nursing and social work Overnight patient slept 7.25 hours. Last bowel movement on July 06. On interview patient presents a blunted affect and presents limited spontaneous speech. Reports feeling "fine". Denies having recent bowel movements. Denies muscle rigidity or stiffness. Complains of headaches for the past 2 days at night. When asked about his relationship with his brother patient is guarded and says he is uncomfortable sharing more information. He did confirm that he can stay with the brother and that he is able to care for him. Rates voices at 3 out of 10 and improved. Feels safe to go back to his brother's home. Confirms that his brother can look after him. Denies SI and HI. Physical Exam Mental Examination Appearance: Unkempt Eye Contact: Fleeting Contact Motor Behavior: Slowed Speech: Soft, Delayed and Poverty of Speech Mood: Depressed and Calm Affect: Apprehensive, Blunted, Constricted, Dulled, Flat and Withdrawn Thought Process: [place], Poverty of Content and Slowed Thinking Thought Content: Poverty of Content Hallucinations: Auditory Insight: Poor Judgement: Poor Vital Signs (Past 24 Hours) Last Vital Signs Temp 36.6 C 07/09/24 06:20 Pulse 91 H 07/09/24 06:21 Resp 16 07/09/24 06:20 BP 103/66 07/09/24 06:21 Pulse Ox 100 07/05/24 06:00 O2 Del Method Room Air 07/05/24 06:00 Results & Data ([facility]) Current Inpatient Medications Current Inpatient Medications: Current Inpatient Medications Acetaminophen (Acetaminophen 325 Mg Tab) 650 mg PO Q4H PRN PRN Reason: Headache or Minor Fever Stop: 07/20/24 00:31 Last Admin: 07/08/24 16:52 Dose: 650 mg Al Hydrox/Mg Hydrox/Simethicone (Aluminum/Magnesium Susp 30 Ml Udc) 30 ml PO Q4H PRN PRN Reason: GI Upset Stop: 07/20/24 00:31 Artificial Tears (Artificial Tears) 1 drops OPB QID PRN PRN Reason: Dryness Stop: 07/30/24 17:15 Bismuth Subsalicylate (Bismuth Subsalicylate 262 Mg Chew) 2 tab PO Q30M PRN PRN Reason: Loose Stool/Diarrhea Stop: 07/20/24 00:31 Hydroxyzine HCl (Hydroxyzine Hcl 25 Mg Tab) 50 mg PO HSZ PRN PRN Reason: Insomnia Stop: 07/20/24 00:31 Last Admin: 06/23/24 01:40 Dose: 50 mg Hydroxyzine HCl (Hydroxyzine Hcl 25 Mg Tab) 25 mg PO Q4H PRN PRN Reason: Anxiety Stop: 07/20/24 00:31 Magnesium Hydroxide (Magnesium Hydroxide Susp 30 Ml Udc) 30 ml PO DAILY PRN PRN Reason: Constipation Stop: 07/20/24 00:31 Miscellaneous (Remove Nicoderm Patch) 1 each N/A DAILY@0859 [facility] Stop: 07/31/24 08:58 Last Admin: 07/09/24 08:18 Dose: Not Given Multivitamins/Minerals (Cerovite Adv Formula Tab) 1 tab PO QAM [facility] Stop: 08/05/24 08:59 Last Admin: 07/09/24 08:14 Dose: 1 tab Nicotine (Nicotine 7 Mg/24 Hr Tdsy) 1 patch TD QAM [facility] Stop: 07/30/24 15:29 Last Admin: 07/09/24 08:13 Dose: 1 patch Nicotine Polacrilex (Nicotine Polacrilex 2 Mg Gum) 1 piece MT Q2H PRN PRN Reason: nicotine cravings Stop: 07/30/24 15:25 Olanzapine (Olanzapine 5 Mg Tablet) 5 mg PO BID PRN PRN Reason: Agitation Stop: 07/20/24 08:59 Last Admin: 06/20/24 14:37 Dose: 5 mg Paliperidone Palmitate (Paliperidone Palmitate 156 Mg/Ml Syr) 156 mg IM TODAY@1200 [facility] Stop: 07/09/24 16:00 Last Admin: 07/09/24 12:16 Dose: 156 mg Psyllium Hydrophilic Mucilloid (Psyllium Or Guar Gum Fiber 4gm Packet) 4 gm PO QAM [facility] Stop: 08/08/24 08:59 Last Admin: 07/09/24 08:12 Dose: 4 gm Senna/Docusate Sodium (Docusate Sodium/Senna 50/8.6mg Tab) 1 tab PO QAM [facility] Stop: 08/08/24 12:29 Sodium Chloride (Sodium Chloride 0.65% Na Soln 45 Ml ([place])) 1 - 2 sprays NA PRN PRN PRN Reason: Nasal Dryness/Congestion Stop: 07/20/24 00:31 Vitamin D (Cholecalciferol 125 Mcg (5,000 Units) Tab) 125 mcg PO QAM [facility] Stop: 07/23/24 14:29 Last Admin: 07/09/24 08:14 Dose: 125 mcg Mental Health & Subst Abuse Tx Therapist Name of Therapist: None Insurance Claims Processor Name of Insurance Claims Processor: None Post Discharge Appointments Primary Care Physician Name Of Family Doctor/PCP: Does not know
[2024-07-09] MEDS: DOCUSATE SODIUM/SENNA 50/8.6MG TAB PO SCH (13:33)
[2024-07-10] MEDS: bisacodyL 5 MG TABEC PO SCH (13:08)
--- NOTE | 2024-07-10 13:54 | Psychiatric Progress Note ---
Date of Service July 10, 2024 Impression / Recommendations Impression JOB RIVERA is a 24-year-old man h/o Schizophrenia, multiple past psychiatric hospitalizations who is currently homeless and drove to the hospital from [place], and was admitted on 06/20/24 00:02 on a 201 voluntary commitment for bizarre behaviors. A: Patient presents some improvement in auditory hallucinations and appears less distractible. Has been attending groups and engaging. Continues to present a blunted affect with limited spontaneous speech. Struggles with constipation with no recent bowel movement. Tolerating recent long-acting injection well. MNPR-ongoing paranoia Overall, I spent a total of 40 minutes on this case including meeting with the patient, reviewing the chart, nursing report, orders, gathering collateral and documentation. (1) Schizophrenia, paranoid type: (2) Anxiety and depression: (3) Auditory hallucinations: (4) Insomnia: (5) Vitamin D insufficiency: Plan 07/10/2024: Dulocolax 5mg BID for two doses 07/09/2024: Invega Sustenna 156 mg IM today Senokot-S one time 07/08/2024: MiraLAX 17 g once. Start daily fiber supplement. 07/07/2024: Discontinue Cogentin 07/06/2024: -Discontinue ativan 0.5mg HS -Discontinue scheduled HS Vistaril given now consistent use of Cogentin 07/05/2024: -Invega Sustenna HAYES 234mg today -Discontinue Invega po 07/04/2024: Continue current medications and tx plan 07/03/2024: Continue current medications and tx plan 07/02/2024: Continue current medications and tx plan 07/01/2024: -Increase paliperidone to 9mg daily tomorrow 06/30/2024: -Start Cogentin 1mg HS -Continue paliperidone -Discontinue fluoxetine 06/29/24: Continue medications and treatment plan. 06/28/2024: Continue medications and treatment plan 06/27/2024: Increase paliperidone to 7.5 mg every morning 06/26/2024: Start fluoxetine 10 mg daily 06/25/2024: Increase hydroxyzine to 100 mg at bedtime 06/24/2024: Continue medications and treatment plan 06/23/2024: Start vitamin D 5000 units daily Increase paliperidone to 6 mg daily Start lorazepam 1 mg bedtime Discontinue quetiapine Start hydroxyzine 50 mg at bedtime 06/22/2024: -Discontinue olanzapine -Discontinue ativan -Start paliperidone 3mg daily tomorrow AM -Start Seroquel 100mg HS. 06/21/2024: -Increase olanzapine to 10mg HS -Started and titrated ativan to 2mg TID -Requested records from [facility] for possible previous admissions in attempt to get further history and collateral information 06/20/2024: The patient was admitted to the [facility] ([facility] mental health unit) on q15 min checks (behavioral with suicide precautions) for safety. The patient will participate in group, recreational, and milieu therapies and will be offered additional individual and family sessions as clinically appropriate. -Start olanzapine 5mg HS -Fasting lipid panel and HbA1c tomorrow, Vit D, Vit B12 Inventory Assets Strengths: able to ask for help, willing for outpatient CM Needs: safety and stabilization, medication adjustment, additional coping skills, increased outpatient services Suicide Risk Level Suicide Risk Level: Moderate (q15 min suicide checks) (denies SI but still with some internal preoccupation, feels safe in the hospital, able to ask nurses when he needs things) Suicide Risk Level Comments: Risk Factors Assessment Male: Yes : No Do You Have Access To A Gun?: No Mental Health Diagnoses: Yes Previous Psychiatric Hospitalization: Yes Hopelessness: No Protective Factors Assessment Employed: No Interval History Identifying Information JOB RIVERA is a 24-year-old man h/o Schizophrenia, multiple past psychiatric hospitalizations who is currently homeless and drove to the hospital from [place], and was admitted on 06/20/24 00:02 on a 201 voluntary commitment for bizarre behaviors. Chief Complaint Psychosis Review of Systems Sleep Information Total Hours of Sleep: 7.75 Meal Information Percent Meal Consumed - Breakfast: 100 Percent Meal Consumed - Lunch: 100 Percent Meal Consumed - Dinner: 100 Subjective Subjective Patient was seen & assessed and interval progress reviewed with treatment team nursing and social work Patient reports no bowel movement overnight. He slept 7+ hours. Reports no midnight awakenings. Reports overall "positive" thoughts. Denies having stomach pain from constipation. Reports voices are bothering him less. Denies any muscle stiffness or rigidity. Says that he can return to his brother's house. Reports a plan to rest, handle work logistics, spend time with family. He feels comfortable driving back and reports that his brother cannot come to get him. He denies having a headache at this time. He denies SI and HI. Physical Exam Mental Examination Appearance: Unkempt Eye Contact: Maintains Eye Contact Motor Behavior: Slowed Speech: Soft, Delayed and Poverty of Speech Mood: Calm Affect: Blunted, Suspicious and Withdrawn Thought Process: [place], Poverty of Content and Slowed Thinking Thought Content: Intact and Logical Hallucinations: Auditory Insight: Poor (to limited, improved) Judgement: Poor (to limited, improved) Vital Signs (Past 24 Hours) Last Vital Signs Temp 36.6 C 07/10/24 06:30 Pulse 96 H 07/10/24 06:31 Resp 16 07/10/24 06:30 BP 105/71 07/10/24 06:31 Pulse Ox 100 07/05/24 06:00 O2 Del Method Room Air 07/05/24 06:00 Results & Data ([facility]) Current Inpatient Medications Current Inpatient Medications: Current Inpatient Medications Acetaminophen (Acetaminophen 325 Mg Tab) 650 mg PO Q4H PRN PRN Reason: Headache or Minor Fever Stop: 07/20/24 00:31 Last Admin: 07/08/24 16:52 Dose: 650 mg Al Hydrox/Mg Hydrox/Simethicone (Aluminum/Magnesium Susp 30 Ml Udc) 30 ml PO Q4H PRN PRN Reason: GI Upset Stop: 07/20/24 00:31 Artificial Tears (Artificial Tears) 1 drops OPB QID PRN PRN Reason: Dryness Stop: 07/30/24 17:15 Bisacodyl (Bisacodyl 5 Mg Tabec) 5 mg PO BID RAFI Stop: 07/10/24 21:01 Last Admin: 07/10/24 13:08 Dose: 5 mg Bismuth Subsalicylate (Bismuth Subsalicylate 262 Mg Chew) 2 tab PO Q30M PRN PRN Reason: Loose Stool/Diarrhea Stop: 07/20/24 00:31 Hydroxyzine HCl (Hydroxyzine Hcl 25 Mg Tab) 50 mg PO HSZ PRN PRN Reason: Insomnia Stop: 07/20/24 00:31 Last Admin: 07/09/24 21:05 Dose: 50 mg Hydroxyzine HCl (Hydroxyzine Hcl 25 Mg Tab) 25 mg PO Q4H PRN PRN Reason: Anxiety Stop: 07/20/24 00:31 Magnesium Hydroxide (Magnesium Hydroxide Susp 30 Ml Udc) 30 ml PO DAILY PRN PRN Reason: Constipation Stop: 07/20/24 00:31 Miscellaneous (Remove Nicoderm Patch) 1 each N/A DAILY@0859 [facility] Stop: 07/31/24 08:58 Last Admin: 07/10/24 08:35 Dose: 1 each Multivitamins/Minerals (Cerovite Adv Formula Tab) 1 tab PO QAM [facility] Stop: 08/05/24 08:59 Last Admin: 07/10/24 08:36 Dose: 1 tab Nicotine (Nicotine 7 Mg/24 Hr Tdsy) 1 patch TD [facility] Stop: 07/30/24 15:29 Last Admin: 07/10/24 08:56 Dose: 1 patch Nicotine Polacrilex (Nicotine Polacrilex 2 Mg Gum) 1 piece MT Q2H PRN PRN Reason: nicotine cravings Stop: 07/30/24 15:25 Olanzapine (Olanzapine 5 Mg Tablet) 5 mg PO BID PRN PRN Reason: Agitation Stop: 07/20/24 08:59 Last Admin: 06/20/24 14:37 Dose: 5 mg Psyllium Hydrophilic Mucilloid (Psyllium Or Guar Gum Fiber 4gm Packet) [facility] [place] Stop: 08/08/24 08:59 Last Admin: 07/10/24 08:38 Dose: Not Given Senna/Docusate Sodium (Docusate Sodium/Senna 50/8.6mg Tab) 1 [facility] [place] Stop: 08/08/24 12:29 Last Admin: 07/10/24 08:56 Dose: Not Given Sodium Chloride (Sodium Chloride 0.65% Na Soln 45 Ml ([place])) 1 - 2 sprays NA PRN PRN PRN Reason: Nasal Dryness/Congestion Stop: 07/20/24 00:31 Vitamin D (Cholecalciferol 125 Mcg (5,000 Units) Tab) 125 mcg [facility] [place] Stop: 07/23/24 14:29 Last Admin: 07/10/24 08:35 Dose: 125 mcg Mental Health & Subst Abuse Tx Therapist Name of Therapist: None Film Sound Coordinator Name of Film Sound Coordinator: None Post Discharge Appointments Primary Care Physician Name Of Family Doctor/PCP: Does not know
--- NOTE | 2024-07-11 11:04 | Discharge Summary ---
Date of Service July 11, 2024 History of Present Illness Cathy presents for psychiatric admission for bizarre presentation and concern for possible preoccupation by internal stimuli and possible paranoia leading to evasiveness. He reports current homelessness and previous psychiatric hospitalizations, though the exact number is unknown. He is reluctant to provide detailed information about his background and current circumstances. He drove to the emergency room from [place] and initially reported back pain and then asked to speak with someone about his mental health due to not eating well per ED documentation. He denied any hallucinations to ED providers. Today he reports experiencing sleep issues but is unable to provide details on the cause or nature of these problems. He also acknowledges hearing auditory hallucinations when asked about this but will not provide any further details. He acknowledges having been on psychiatric medication in the past but cannot recall the specific medications or the pharmacy where they were filled. He expresses a desire to stay in the current region rather than return to [place], though he will not provide any details or rationale for this nor will he share anything about his prior living situations or family He is unable to clarify any psychiatric diagnoses and frequently responds with "I don't know how to answer that question" to various inquiries. Despite his housing situation, he reports he has been able to eat recently (notably different from what he told ED providers, he does appear thin). Psychiatric ROS is limited due to his evasiveness in providing a history or discussing symptoms. Physical Exam Mental Examination Appearance: Unkempt Eye Contact: Maintains Eye Contact Motor Behavior: Slowed Speech: Soft and Poverty of Speech Mood: Calm Affect: Blunted Thought Process: Intact and Goal Oriented Thought Content: Intact and Logical Hallucinations: Auditory Insight: Fair (to limited, improved) Judgement: Fair (to limited, improved) Vital Signs (Past 24 Hours) Last Vital Signs Temp 36.6 C 07/11/24 06:32 Pulse 78 07/11/24 06:33 Resp 16 07/11/24 06:32 BP 107/78 07/11/24 06:33 Pulse Ox 100 07/05/24 06:00 O2 Del Method Room Air 07/05/24 06:00 Principal Diagnosis Schizophrenia, paranoid type Psychiatric Data See daily stay summary. In short, safety was maintained and the patient was cooperative with care. Medication changes included starting Paliperidone and transitioning to Invega Sustenna 156mg Q28D after 2 loading injections and they tolerated this well. A family session was held and safety plan was completed prior to discharge. Patient presented a clear and rational plan, was future oriented, was forthcoming and less paranoid, denied SI and HI, presented significant improvement in AH and was less distractible. Insomnia and depressive mood resolved. Pt was encouraged to continue medications and counseled about potential s/e and plans of action. Discharged back to his home with his brother. Day of Discharge Assessment Today the patient voices readiness for discharge. They note improvement in mood and deny thoughts to harm self or others. Thoughts remain organized and they are improved from admission. There is no evidence of psychosis. They agree to take mediations as prescribed and keep follow-up appointments. They are stable for discharge to outpatient level of care. Transition of Care Transition Of Care Record: was reviewed with the patient Advance Directives Advance Directives Information Provided: Yes Advance Directives: No Mental Health Advance Directive: No Advance Directives on File: No Living Will: No Power of Irrigator Sprinkling System: No Advance Directives Reason:: Declines as Mental Health Visit. Suicide Risk Level Suicide Risk Level Comments: Risk Factors Assessment Male: Yes : No Do You Have Access To A Gun?: No Mental Health Diagnoses: Yes Previous Psychiatric Hospitalization: Yes Hopelessness: No Protective Factors Assessment Employed: No Discharge Data Lab Results 06/19/24 06/19/24 06/21/24 20:21 21:31 08:12 WBC 8.22 RBC 5.51 Hgb 16.3 Hct 47.7 MCV 86.6 MCH 29.6 MCHC 34.2 RDW Std Deviation 42.1 RDW Coeff of Anastasiya 13.4 Plt Count 251 MPV 9.4 Immature Gran % (Auto) 0.1 Neut % (Auto) 72.3 Lymph % (Auto) 17.9 [place] % (Auto) 8.0 Eos % (Auto) 1.2 Baso % (Auto) 0.5 Neut # (Auto) 5.94 Lymph # (Auto) 1.47 [place] # (Auto) 0.66 H Eos # (Auto) 0.10 Baso # (Auto) 0.04 Immature Gran # (Auto) 0.01 Sodium 140 Potassium 3.6 Chloride 105 Carbon Dioxide 27 Anion Gap 8 BUN 8 Creatinine 0.89 Est Cr Clr Drug Dosing 115.9 eGFR 122.72 BUN/Creatinine Ratio 9.0 L Glucose 96 Estimat Average Glucose 103 Hemoglobin A1c 5.2 Calcium 10.5 H Total Bilirubin 0.6 AST 16 ALT 13 Alkaline Phosphatase 71 Total Protein 8.3 Albumin 4.6 Globulin 3.7 Albumin/Globulin Ratio 1.2 Triglycerides 51 Cholesterol 122 LDL Cholesterol, Calc 59 VLDL Cholesterol, Calc 10 HDL Cholesterol 53 Cholesterol/HDL Ratio 2.3 Vitamin B12 283 25-OH Vitamin D Total 21.9 L TSH 0.709 Urine Color Yellow Urine Appearance Clear Urine pH 7.5 Ur Specific [place] 1.018 Urine Protein Negative Urine Glucose (UA) Negative Urine Ketones Trace H Urine Blood Negative Urine Nitrite Negative Urine Bilirubin Negative Urine Urobilinogen Negative Ur Leukocyte Esterase Negative Salicylates < 3.0 L Urine Opiates Screen Neg Ur Methadone, Qual Neg Urine Fentanyl Screen Neg Acetaminophen < 3 L Urine Barbiturates Neg Ur Phencyclidine (PCP) Neg U Amphetamin/Meth Scrn Neg MDMA (Ecstasy) Screen Neg U Benzodiazepines Scrn Neg Ur Cocaine Metabolite Neg U Marijuana (THC) Screen Neg Ethyl Alcohol mg/dL < 10.0 SARS-CoV-2, RNA, NAAT NEGATIVE Hospital Course (1) Schizophrenia, paranoid type: (2) Anxiety and depression: (3) Auditory hallucinations: (4) Insomnia: (5) Vitamin D insufficiency: Plan 07/10/2024: Dulocolax 5mg BID for two doses 07/09/2024: Invega Sustenna 156 mg IM today Senokot-S one time 07/08/2024: MiraLAX 17 g once. Start daily fiber supplement. 07/07/2024: Discontinue Cogentin 07/06/2024: -Discontinue ativan 0.5mg HS -Discontinue scheduled HS Vistaril given now consistent use of Cogentin 07/05/2024: -Invega Sustenna HAYES 234mg today -Discontinue Invega po 07/04/2024: Continue current medications and tx plan 07/03/2024: Continue current medications and tx plan 07/02/2024: Continue current medications and tx plan 07/01/2024: -Increase paliperidone to 9mg daily tomorrow 06/30/2024: -Start Cogentin 1mg HS -Continue paliperidone -Discontinue fluoxetine 06/29/24: Continue medications and treatment plan. 06/28/2024: Continue medications and treatment plan 06/27/2024: Increase paliperidone to 7.5 mg every morning 06/26/2024: Start fluoxetine 10 mg daily 06/25/2024: Increase hydroxyzine to 100 mg at bedtime 06/24/2024: Continue medications and treatment plan 06/23/2024: Start vitamin D 5000 units daily Increase paliperidone to 6 mg daily Start lorazepam 1 mg bedtime Discontinue quetiapine Start hydroxyzine 50 mg at bedtime 06/22/2024: -Discontinue olanzapine -Discontinue ativan -Start paliperidone 3mg daily tomorrow AM -Start Seroquel 100mg HS. 06/21/2024: -Increase olanzapine to 10mg HS -Started and titrated ativan to 2mg TID -Requested records from [facility] for possible previous admissions in attempt to get further history and collateral information 06/20/2024: The patient was admitted to the [facility] ([facility] inpatient mental health unit) on q15 min checks (behavioral with suicide precautions) for safety. The patient will participate in group, recreational, and milieu therapies and will be offered additional individual and family sessions as clinically appropriate. -Start olanzapine 5mg HS -Fasting lipid panel and HbA1c tomorrow, Vit D, Vit B12 Mental Health & Subst Abuse Tx Psychiatrist Name of Psychiatrist: Jarred Denton Psychiatrist's Date Of Appointment With Psychiatric Provider: [facility] Psychiatric Appointment Comment: Will contact pt. directly for intake and to schedule for injection by 08/03. Psychiatrist Release of Information: Obtained, Reviewed and Signed Therapist Name of Therapist: None Firer Boiler Name of Firer Boiler: [address] Phone Number for Firer Boiler: Date of Appointment with Firer Boiler: 07/16/24 Time of Appointment with Firer Boiler: 1:30pm Case Management Appointment Comment: Meet with case management to do intake appt Post Discharge Appointments Primary Care Physician Name Of Family Doctor/PCP: Does not know Contact Information Discharge Discharge [address] [address] [place] [id number] Discharge Plan Discharge Items Patient Disposition: Home - Self-Care Reason For Visit: SEVERE DEPRESSION Discharge Diagnosis: Schizophrenia, paranoid type Anxiety and depression Vitamin D Insufficiency Condition on Discharge: Fair Activity: Resume your previous activity Non-emergency contact: Primary Care Provider, Psychiatrist and Therapist Call non-emergency contact if: you have any medication questions and your symptoms worsen Follow-up/Referrals: PCP,NO [Primary Care Provider] - Diet: Regular Addtl Attending Provider Instructions: Continue Invega Sustenna long acting injections, next one is Invega Sustenna 156mg scheduled for August 06, 2024 through [facility] ([address] [place] [address], [id number], telephone [phone]) Continue Vitamin D supplement daily. Follow-up with your primary care doctor in 3-6 months to get vitamin levels rechecked Take Hydroxyzine (Vistaril) 50mg NEEDED for sleep Take Dulcolax 5mg twice daily NEEDED for constipation (inform your doctor if this problem does not resolve) Pending Studies at Discharge: No Stand-Alone Forms: [employer] [facility] [employer], Smoking Cessation Medications and DC Order Prescriptions: New nicotine 7 mg/24 hr Patch 24 Hour 1 patch transdermal QAM Qty: 30 0RF hydroxyzine HCl 50 mg tablet 50 mg PO HSZ PRN (Reason: insomnia, anxiety) Qty: 30 0RF cholecalciferol (vitamin D3) 125 mcg (5,000 unit) Tablet 125 mcg PO QAM Qty: 30 0RF bisacodyl [Dulcolax (bisacodyl)] 5 mg tablet,delayed release (DR/EC) 5 mg PO BID PRN (Reason: constipation) Qty: 10 0RF Discharge Orders: Discharge Order (Routine); Ordered 07/11/24 Ordered By: Alex Sarah Admission Data Admit Date/Time: 06/20/24 00:02 Attending Provider: Alex Sarah Admit Provider: Emy Mejia Primary Care Provider: PATO HERMOSILLO C[place] [address] D/C day mgmt > 30 min Patient Type Established History Detailed Exam Detailed Medical Decision Making High Complexity Diagnoses Schizophrenia, paranoid type F20.0 Anxiety and depression F41.9; F32.A Auditory hallucinations R44.0 Insomnia G47.00 Vitamin D insufficiency E55.9
== END 2024-07-11 11:56 | disposition home or self-care (01) | DRG 885 ==
LOC: ED 19:52 → 3S 06-20 00:02 → SUATTDRO 06-20 00:02 → 3S 06-20 00:23